=== PATIENT | female | born 1950 | race Caucasian/White ===

== ENCOUNTER 2025-06-23 20:47 | Inpatient (IN) | payer MEDICARE, SELFPAY ==
--- NOTE | ~2025-06-23 | CT_ITS ---
EXAMINATION: CT SOFT TISSUE NECK WITH CONTRAST CLINICAL INFORMATION: Dysphagia, rule out underlying mass or structural cause for dysphasia. COMPARISON: No prior. TECHNIQUE: Following the intravenous administration of 70 mL of Omnipaque 350 intravenous contrast, helical imaging was performed in the axial plane with generation of coronal and sagittal reformatted images. This CT examination was performed using dose optimization techniques as appropriate, variously including the following: *Automated exposure control *Adjustment of mA and/or kV according to patient size (this includes techniques or standardized protocols for targeted exams where dose is matched to indication/reason for exam; i.e. extremities or head) *Use of iterative reconstruction technique FINDINGS: Lymph Nodes: -Normal. No abnormal lymphadenopathy. Carotid Sheath Structures: -Trace calcification of the right carotid bulb. Otherwise normal. Salivary Glands: -Normal. Tongue Base/Floor of Mouth: -Normal Mucosal Space: - Normal. No abnormal mucosal space mass or enhancement. Visceral Space: -Thyroid gland: Normal. -Larynx is normal. -Imaged cervical esophagus is normal. -Subglottic trachea is normal. Retropharangeal Space: - Normal. Parapharyngeal Fat Planes: -Normal. Field Cane Scale Clerk Spaces: -Normal. Anterior Cervical Space: -Normal. Imaged Intracranial Contents: -No mass effect, edema, or abnormal enhancement. Cortical and dural venous sinuses are patent. The skull base is normal. Globes and Orbits: -Normal. Paranasal Sinuses/Mastoids/Tympanic Spaces: -Normally aerated bilaterally. Lung Apices and Superior Mediastinal Structures: -Imaged lung apices are clear and superior mediastinal structures are normal. Bony Structures: -No suspicious bone lesions. No fractures. -Moderate degenerative changes of the right TM joint. The left appears normal. -Relatively mild degenerative changes of the spine, most notable C5-6. CT/CT soft tissue neck w IV con IMPRESSION: 1. There is no mass, pathologic lymphadenopathy, abnormal fluid collection, or other abnormality within the neck. 2. Ancillary findings as discussed in the body of the report. Electronically signed by: Luis Mcbride MD 06/27/2025 09:00 AM [facility]
--- NOTE | ~2025-06-23 | FL_ITS ---
EXAMINATION: XR MODIFIED BARIUM SWALLOW CLINICAL INFORMATION: Dysphagia COMPARISON: None available. TECHNIQUE: Modified barium swallow performed by the speech pathologist. FINDINGS: Patient swallowed liquids and solid of varying consistency. No aspiration is seen. FLUOROSCOPY TIME: 4.08 minutes DOSE AREA PRODUCT: 121 uGy-m2 (microgray-meter squared) FL/FL Modified Barium Swallow IMPRESSION: No evidence of aspiration seen during the study. See speech pathology report for details. Electronically signed by: Leo Valenzuela MD 06/28/2025 04:05 PM [facility]
--- NOTE | ~2025-06-23 | CT_ITS ---
EXAMINATION: CT HEAD WITHOUT CONTRAST CLINICAL INFORMATION: dysphagia, rule out old/chronic infarcts COMPARISON: None available. TECHNIQUE: Contiguous axial imaging was performed from the skull base to vertex without intravenous administration of contrast. This CT examination was performed using dose optimization techniques as appropriate, variously including the following: *Automated exposure control *Adjustment of mA and/or kV according to patient size (this includes techniques or standardized protocols for targeted exams where dose is matched to indication/reason for exam; i.e. extremities or head) *Use of iterative reconstruction technique FINDINGS: There is no acute ischemic change. Subtle hypodensity in the posterior limb and a second in the anterior limb of the left internal capsule likely represents a remote lacunar infarcts. Periventricular white matter hypodensities are also present. There is no intracranial hemorrhage. There is no mass-effect or midline shift. There is mild to moderate generalized atrophy. Basal cisterns and ventricles are within normal limits for age/cerebral volume. Orbits are symmetrical and unremarkable. Paranasal sinuses and mastoid air cells are pneumatized. There are no bony abnormalities. CT/CT head/brain wo IV con IMPRESSION: Mild to moderate generalized atrophy and periventricular hypodensities likely related to small vessel angiopathy. There are also likely small lacunar infarct, involving the left anterior and posterior limbs of the internal capsule. Electronically signed by: Juan Rodriguez MD 06/27/2025 04:01 PM [facility]
--- NOTE | ~2025-06-23 | MR_ITS ---
EXAMINATION: MR BRAIN WITHOUT CONTRAST CLINICAL INFORMATION: Dysphagia. COMPARISON: Correlated to CT dated June 27, 2025. TECHNIQUE: MRI of the brain was obtained using routine sequences without contrast. FINDINGS: Paramagnetic field distortion secondary to the right maxillary sinus/right maxilla. No restricted diffusion. No acute intracranial hemorrhage, mass effect, midline shift, hydrocephalus or herniation. Peters-white matter differentiation is normal. There are a few scattered infratentorial and supratentorial compartment susceptibility signal foci. Bilateral multifocal punctate white matter hyperintense T2 FLAIR signal involving centrum semiovale and cruz radiata. Prominence of the extra-axial CSF spaces cerebral sulci and ventricles involving mostly the frontotemporal lobes. Flow-void signal within the main cerebral vessels is normal. Craniocervical junction demonstrates normal position of the cerebellar tonsils. Sellar/percent region is normal. Hyperintense T2 FLAIR signal in the right and to a lesser extent left mastoid. MR/MR head/brain wo con IMPRESSION: No acute brain abnormality. Few old microhemorrhages which could be hypertensive etiology. Small vessel occlusive disease. Probable inflammatory processes versus effusion, mastoid air cells. Electronically signed by: Flip Guzman MD 06/29/2025 09:28 AM EST
[2025-06-23 20:55] VITALS: BP 166/76; PULSE 76; RESP 18; TEMP 36.4; O2SAT 97; BMI 22.3
[2025-06-23 21:16] LABS: MANUAL DIFF FLAG NO
[2025-06-23 21:18] LABS: Hematocrit 39.8 % (37.0-47.0); Hemoglobin 13.2 g/dl (12.0-16.0); Imm Gran Abs Auto 0.03 X10*3/uL (0.00-0.03); Imm Gran Pct Auto 0.5 % (0.0-0.4); Lymphocytes Absolute Auto 1.8 X10*3/uL (1.2-4.9); Mean Corpuscular HGB Conc 33.2 g/dl (31.0-35.0); Mean Corpuscular Hemoglobin 31.7 pg (27.0-33.0); Mean Corpuscular Volume 95.4 fL (80.0-98.0); NRBC Abs Auto 0.000 X10*3/uL (0.0-0.012); NRBC Pct Auto 0.0 /100WBC (0.0-0.2); Platelet Count 390 X10*3/uL (160-400); Red Blood Count 4.17 X10*6/uL (4.20-5.50); White Blood Count 6.2 X10*3/uL (4.8-10.8)
[2025-06-23 21:31] LABS: Alanine Aminotransferase 18 U/L (0-31); Albumin Level 4.7 g/dL (3.5-5.0); Alkaline Phosphatase 85 U/L (39-117); Anion Gap 22 (12-20); Aspartate Amino Transferase 29 U/L (5-31); Blood Urea Nitrogen 34 mg/dL (9-16); Calcium 9.6 mg/dL (8.4-10.2); Carbon Dioxide 15 mmol/L (22-29); Chloride 109 mmol/L (96-108); Creatinine Clr Calc Pharmacy 29.1; Estimated Glomerular Filt Rate 35; Magnesium 2.1 mg/dL (1.6-2.6); Potassium 4.8 mmol/L (3.3-5.1); Sodium 141 mmol/L (135-145); Total Protein 7.8 g/dL (6.5-8.0)
[2025-06-23 21:52] LABS: Resp Syncy Virus RNA Qual PCR NEGATIVE (Negative); SARS COV2 PCR INHOUSE NEGATIVE (Negative)
[2025-06-24] VITALS (11 sets, daily range): BP systolic 109–142; BP diastolic 56–70; PULSE 67–88; RESP 14–20; TEMP 36.1–36.9; O2SAT 95–100; BMI 19.6
[2025-06-24] MEDS: Lactated Ringers 1,000 ML 150 ML IVCONT (02:06)
[2025-06-24] MEDS: diazePAM 10 MG/2 ML CARTRIDGE 5 MG IVPUSH (02:06)
--- NOTE | 2025-06-24 02:10 | ED.GENADULT ---
HPI - General Adult General Chief complaint: General Medical Stated complaint: not eating Time Seen by Provider: 06/24/25 00:06 Source: patient Limitations: no limitations History of Present Illness ED Provider: Hilaria Rice PA-C HPI narrative: 74-year-old female with a history of known dysphagia, hypertension and diabetes presents with worsening dysphagia. Patient states she developed difficulty swallowing 3 days ago. She is unable to tolerate both liquid and solid. She has not been able to take her prescribed medications. She was seen by primary care who gave her prescriptions for Reglan and baclofen, she has not been able to utilize them. Patient states she is having difficulty managing her secretions. Patient has been seen at [facility] for similar presentation, with the last episode being May of 2023. She had endoscopy at that time, without any additional intervention. Related Data Allergies Allergy/AdvReac Type Severity Reaction Status Date / Time No Known Allergies Allergy Verified 06/23/25 20:59 Review of Systems Review of Systems: Yes all other systems are reviewed and are negative Constitutional: Constitutional: Reports fatigue, Denies fever(s), Reports malaise and Reports poor appetite ENT: Reports dysphagia, Denies odynophagia and Denies sore throat Cardiovascular: Cardiovascular: Denies chest pain and Denies dyspnea Respiratory: Respiratory: Denies dyspnea Gastrointestinal: Gastrointestinal: Denies abdominal pain, Reports dysphagia, Denies nausea, Denies odynophagia and Denies vomiting Endocrine: Endocrine: Reports fatigue PMFSH Past Medical History Attestation statement: The following information was validated with the patient. Social History Social History Alcohol intake: current Alcohol type: wine Smoked in Last 30 Days: No Use of substances other than those prescribed or required for medical reasons: No Advance Directives: No Advance Directives Information Provided: Yes Physical Exam ED Vital Signs: Vital Signs - 24 hr 06/23/25 20:55 06/24/25 00:44 06/24/25 02:00 Temperature 97.6 F 97.9 F 97.9 F Pulse Rate 76 76 76 Respiratory Rate 18 16 16 Blood Pressure 166/76 H 136/60 136/60 Pulse Oximetry 97 97 97 Oxygen Delivery Method Room Air Room Air Room Air BMI result Body Mass Index 22.3 Const Other: Alert Orientation/consciousness: patient oriented x3 HENMT Other: No trismus or drooling Resp Effort & Inspection: normal respiratory effort Cardio Other: Normal peripheral perfusion Skin Other: Warm dry no rash Neuro General: patient oriented x3, gait normal, no focal motor deficits and CN's II-XI intact bilaterally Psych Other: Cooperative Medications Administered Generic Name Dose Route Start Last Admin Trade Name Freq PRN Reason Stop Dose Admin Lactated Ringer's 1,000 mls @ 150 mls/hr 06/24/25 02:00 06/24/25 02:06 Lr IVCONT 150 mls/hr .Q6H40M FRANCE Administration Discontinued Medications Generic Name Dose Route Start Last Admin Trade Name Freq PRN Reason Stop Dose Admin Diazepam 5 mg 06/24/25 02:00 06/24/25 02:06 Diazepam 10 Mg/2 Ml Cartridge IVPUSH 06/24/25 02:01 5 mg STAT STA Administration Metoclopramide HCl 10 mg 06/24/25 02:00 06/24/25 02:06 Metoclopramide Hcl 10 Mg/2 Ml Vial IVPUSH 06/24/25 02:01 10 mg ONCE ONE Administration Medical Decision Making Medical Decision Making MDM Narrative: 74-year-old female with a history of known dysphagia, hypertension and diabetes presents with worsening dysphagia. Patient states she developed difficulty swallowing 3 days ago. She is unable to tolerate both liquid and solid. She has not been able to take her prescribed medications. She was seen by primary care who gave her prescriptions for Reglan and baclofen, she has not been able to utilize them. Patient states she is having difficulty managing her secretions. Patient has been seen at [facility] for similar presentation, with the last episode being May of 2023. She had endoscopy at that time, without any additional intervention. Problem: Age, known dysphagia History: Per patient I have considered the following differential diagnoses: Globus, esophageal mass, stricture, Zenker diverticulum, esophageal dysmotility Plan: Screening labs obtained, the patient is mildly dehydrated, no overt electrolyte abnormalities. We will admit for GI consult, she needs further workup. We are in the process of obtaining records from [facility]. I have independently reviewed the following tests: Labs: No leukocytosis, not anemic, creatinine 1.44, no additional electrolyte abnormalities, viral panel negative Differential Diagnosis Differential Diagnoses: The differential diagnosis associated with the presentation includes See MDM Admission/Observation Consideration of admission/observation: Escalation of care including admission/observation considered Admit Consult Healthcare Provider Management of the patient was discussed with: Hospitalist and Pie Chef We will require GI consult Lab Data MDM Lab Attestation statement: I reviewed the patient's lab results. 06/23/25 21:11 06/23/25 21:11 Labs: Lab Results 06/23/25 Range/Units 21:11 WBC 6.2 (4.8-10.8) X10*3/uL RBC 4.17 L (4.20-5.50) X10*6/uL Hgb 13.2 (12.0-16.0) g/dl Hct 39.8 (37.0-47.0) % MCV 95.4 (80.0-98.0) fL MCH 31.7 (27.0-33.0) pg MCHC 33.2 (31.0-35.0) g/dl RDW 13.0 (11.0-16.0) % Plt Count 390 (160-400) X10*3/uL MPV 9.5 (9.4-12.3) fL Immature Gran % (Auto) 0.5 H (0.0-0.4) % Neut % (Auto) 60.6 (45-73) % Lymph % (Auto) 29.4 (20-40) % [place] % (Auto) 8.4 (2-11) % Eos % (Auto) 0.8 (0-4) % Baso % (Auto) 0.3 (0-2) % Lymph # (Auto) 1.8 (1.2-4.9) X10*3/uL [place] # (Auto) 0.5 (0.1-1.2) X10*3/uL Eos # (Auto) 0.1 (0.0-0.4) X10*3/uL Baso # (Auto) 0.0 (0.0-0.2) X10*3/uL Abs Immat Gran (auto) 0.03 (0.00-0.03) X10*3/uL Absolute Neuts (auto) 3.7 (2.0-8.3) x10*3/uL Absolute Nucleated RBC 0.000 (0.0-0.012) X10*3/uL Nucleated RBC % (auto) 0.0 (0.0-0.2) /100WBC Sodium 141 (135-145) mmol/L Potassium 4.8 (3.3-5.1) mmol/L Chloride 109 H (96-108) mmol/L Carbon Dioxide 15 L (22-29) mmol/L Anion Gap 22 H (12-20) BUN 34 H (9-16) mg/dL Creatinine 1.44 H (0.5-1.4) mg/dL Estim Creat Clear Calc 29.1 Estimated GFR 35 Random Glucose 70 (60-115) mg/dL Calcium 9.6 (8.4-10.2) mg/dL Magnesium 2.1 (1.6-2.6) mg/dL Total Bilirubin 0.5 (0.0-1.0) mg/dL AST 29 (5-31) U/L ALT 18 (0-31) U/L Alkaline Phosphatase 85 (39-117) U/L Total Protein 7.8 (6.5-8.0) g/dL Albumin 4.7 (3.5-5.0) g/dL Influenza Type A (PCR) NEGATIVE (Negative) Influenza Type B (PCR) NEGATIVE (Negative) RSV RNA Qual (PCR) NEGATIVE (Negative) SARS-CoV-2 RNA (RT-PCR) NEGATIVE (Negative) Discharge Plan Discharge Clinical Impression: Dysphagia, Dehydration Patient Disposition: Admitted As Inpatient
--- NOTE | 2025-06-24 02:58 | P.HPHOSP_ITS ---
History of Present Illness Date of Service: 06/24/25 Chief Complaint: not eating 74-year-old female with a history of dysphagia diagnosed in May 2023 after presenting to [facility] with similar symptoms, she presented today with acute worsening of swallowing difficulties. On Friday, she experienced a choking episode while drinking water, prompting an urgent appointment with her primary care physician later that afternoon. By the following day (Friday), she became unable to swallow both liquids and solids, including medications, and has not eaten since Friday afternoon. She reports using a chin tuck maneuver to swallow her saliva. Her dysphagia was previously thought to be esophageal in origin, though she is unsure. An endoscopy was performed in May 2023 ([facility], GI Dr. Costello). Metoclopramide (Reglan) and baclofen were prescribed by her primary care physician on Friday for symptom management, but she has not been able to take them. Before Friday, the patient reported tolerating a regular diet without any issues. She denies pain with swallowing except for transient discomfort after choking episodes. She also denies coughing with eating, metallic taste, burning in the esophagus, nausea, vomiting, dry mouth, or breathing problems. ED course: Diazepam 5 Mg IV and Reglan 10 mg IV x 1 dose Vital signs: stable, afebrile Diagnostic studies: Serum creatinine 1.44, BUN 34, anion gap 22, bicarb 15, potassium 4.8, sodium 141, calcium 9.6, magnesium 2.1, glucose 70. CBC within normal limits. Respiratory panel negative Discharge summary from [facility] 05/2023 reviewed: EGD: Normal esophageal pathology. Mild gastritis, duodenal ulcer COMORBID CONDITIONS: Dysphagia, Hypertension, type 2 diabetes mellitus, depression, history of DVT in adulthood MEDICATIONS: - Jardiance 10 mg daily, Telmisartan 80 mg daily (Prescribed on 06/20/25: metoclopramide (Reglan) and baclofen) SOCIAL HISTORY: - No cigarette use - Occasional alcohol use (a glass of wine with dinner) [facility] Social History Alcohol intake: current Alcohol type: wine Smoked in Last 30 Days: No Use of substances other than those prescribed or required for medical reasons: No Advance Directives: No Advance Directives Information Provided: Yes Meds Allergies Allergy/AdvReac Type Severity Reaction Status Date / Time No Known Allergies Allergy Verified 06/23/25 20:59 Active Medications: Current Medications Lactated Ringer's (Lr) 1,000 mls @ 150 mls/hr IVCONT .Q6H40M FRANCE Last Admin: 06/24/25 02:06 Dose: 150 mls/hr Physical Exam 2 Vital Signs and Narrative: Vital Signs: Last Vital Signs Temp 97.9 F 06/24/25 02:00 Pulse 76 06/24/25 02:00 Resp 16 06/24/25 02:00 BP 136/60 06/24/25 02:00 Pulse Ox 97 06/24/25 02:00 O2 Del Method Room Air 06/24/25 02:00 BMI result Body Mass Index 22.3 General: Alert, oriented, in no acute distress and cooperative. Safely managing oral secretions ENT: Mucous membranes moist Neck: Supple Heart: RRR Lungs: Clear to auscultation bilaterally. No wheezes, rales, or rhonchi. Normal respiratory effort. No stridors Abdomen: Soft, non tenderness, nondistended, normoactive bowel sounds. Extremities: No calf tenderness bilaterally, no swelling Neurologic: Alert & oriented x4. Moving all extremities spontaneously. Normal speech. Results Labs 06/23/25 21:11 06/23/25 21:11 Labs: Laboratory Results - last 24 hr 06/23/25 21:11 MCV 95.4 MCH 31.7 MCHC 33.2 RDW 13.0 Plt Count 390 MPV 9.5 Immature Gran % (Auto) 0.5 H Neut % (Auto) 60.6 Lymph % (Auto) 29.4 [place] % (Auto) 8.4 Eos % (Auto) 0.8 Baso % (Auto) 0.3 Lymph # (Auto) 1.8 [place] # (Auto) 0.5 Eos # (Auto) 0.1 Baso # (Auto) 0.0 Abs Immat Gran (auto) 0.03 Absolute Neuts (auto) 3.7 Absolute Nucleated RBC 0.000 Nucleated RBC % (auto) 0.0 Anion Gap 22 H Estim Creat Clear Calc 29.1 Estimated GFR 35 Random Glucose 70 Calcium 9.6 Magnesium 2.1 Total Bilirubin 0.5 AST 29 ALT 18 Alkaline Phosphatase 85 Total Protein 7.8 Albumin 4.7 Influenza Type A (PCR) NEGATIVE Influenza Type B (PCR) NEGATIVE RSV RNA Qual (PCR) NEGATIVE SARS-CoV-2 RNA (RT-PCR) NEGATIVE Assessment and Plan (1) Dysphagia: Qualifiers: Dysphagia type: unspecified Qualified Code(s): R13.10 - Dysphagia, unspecified Status: Acute (2) Acute prerenal azotemia: Status: Acute (3) HTN (hypertension): Status: Chronic (4) Type 2 diabetes mellitus: Status: Chronic Plan 74 year olad with a history of dysphagia diagnosed in May 2023, diabetes mellitus, and hypertension, presenting with acute worsening of swallowing over the past week, now unable to tolerate oral intake or medications, using compensatory swallowing maneuvers. Dysphagia NPO IVF Protonix 40 mg IV daily Aspiration precaution HOME CARE ASSISTANT consult Gastroenterology consult Monitoring blood glucose levels q.6 hours whilst NPO Continuous pulse oximetry Acute prerenal azotemia BUN creatinine ratio greater than 20 likely secondary to decreased oral intake due to dysphagia IVF Close monitoring BMP (at 6 a.m.) Renal dose medications when appropriate and avoiding nephrotoxic agents Type 2 diabetes mellitus: Asymptomatic low blood glucose secondary to decreased oral intake associated with dysphagia Jardiance held on admission-unable to take oral medications due to dysphagia Monitor blood glucose Hypertension: BP controlled, unable to take oral medications due to dysphagia. Holding oral antihypertensive agents IV antihypertensive therapy as needed if BPs greater than or equal to 180/90 What Matters Most Healthcare Proxy: The patient?s designated daughter, Aronvere as the primary contact for updates during hospitalization and will serve as the surrogate decision-maker should the patient lose capacity. Advance Directives: Living Will is in place. Life-Sustaining Treatment Preferences: The patient has clearly stated a preference against resuscitation, intubation, or other extraordinary life- sustaining interventions. VTE: Heparin subcutaneous Total time managing care of this patient today: 75 minutes. Quality Stroke Does the patient have a stroke diagnosis?: No VTE Prior VTE?: Yes VTE Risk Level:: Medical - moderate - high VTE Device Contraindication: Treatment Not Indicated VTE Drug Contraindication: N/A - Med Ordered
--- NOTE | 2025-06-24 03:33 | MHC.EDTECH ---
belongings list done,crystal medeiros aware of patients meds and will take the process from there
[2025-06-24 04:16] LABS: Anion Gap 22 (12-20); Blood Urea Nitrogen 33 mg/dL (9-16); Calcium 9.6 mg/dL (8.4-10.2); Carbon Dioxide 13 mmol/L (22-29); Chloride 110 mmol/L (96-108); Creatinine Clr Calc Pharmacy 32.2; Estimated Glomerular Filt Rate 40; Potassium 4.2 mmol/L (3.3-5.1); Sodium 141 mmol/L (135-145)
[2025-06-24] MEDS: Dextrose 5 % and Lactated Ring 1,000 ML 125 ML IVCONT ×3 (06:18→23:14)
--- NOTE | 2025-06-24 06:28 | PC.NURSE ---
took patient medication bottles and supervisor special services pack to pharmacy. paperwork was placed on chart and copy given to patient
[2025-06-24 06:57] LABS: Venous Blood Gas Refer to POC result
[2025-06-24 06:58] LABS: VBG HCO3 12 mmol/L (22-26); VBG O2 % Saturation 99.0 %
--- NOTE | 2025-06-24 07:11 | PM.GICN ---
History of Present Illness Data of Consult Service Date: 06/24/25 Requesting physician: Qian Blake Primary Care Provider: Jef Noland NP HPI Reason for consult: Dysphagia 74 YF with hypertension, type 2 diabetes mellitus, depression, history of DVT seen at [facility] on 06/23/25 with acute worsening of swallowing difficulties. On Friday, she experienced a choking episode while drinking water, prompting an urgent appointment with her primary care physician later that afternoon. By the following day (Friday), she became unable to swallow both liquids and solids, including medications, and has not eaten since Friday afternoon. She reports using a chin tuck maneuver to swallow her saliva. Her dysphagia was previously thought to be esophageal in origin, though she is unsure. Metoclopramide (Reglan) and baclofen were prescribed by her primary care physician on Friday for symptom management, but she has not been able to take them. Before Friday, the patient reported tolerating a regular diet without any issues. She denies pain with swallowing except for transient discomfort after choking episodes. She also denies coughing with eating, metallic taste, burning in the esophagus, nausea, vomiting, dry mouth, or breathing problems. 05/2023 Pt was diagnosed with dysphagia after she was seen at [facility] with similar symptoms. An endoscopy was performed in May 2023 ([facility], GI Dr. Costello). ED course: Diazepam 5 Mg IV and Reglan 10 mg IV x 1 dose Labs showed creatinine 1.44, BUN 34, anion gap 22, bicarb 15, potassium 4.8, sodium 141, calcium 9.6, magnesium 2.1, glucose 70. CBC within normal limits. Respiratory panel negative Discharge summary from [facility] 05/2023 reviewed: EGD: Normal esophageal pathology. Mild gastritis, duodenal ulcer MEDICATIONS: - Jardiance 10 mg daily, Telmisartan 80 mg daily (Prescribed on 06/20/25: metoclopramide (Reglan) and baclofen) SOCIAL HISTORY: - No cigarette use - Occasional alcohol use (a glass of wine with dinner) Review of Systems Review of Systems: Yes all other systems are reviewed and are negative Constitutional: Constitutional: Reports fatigue, Denies fever(s), Reports malaise and Reports poor appetite ENT: Reports dysphagia, Denies odynophagia and Denies sore throat Cardiovascular: Cardiovascular: Denies chest pain and Denies dyspnea Respiratory: Respiratory: Denies dyspnea Gastrointestinal: Gastrointestinal: Denies abdominal pain, Reports dysphagia, Denies nausea, Denies odynophagia and Denies vomiting Endocrine: Endocrine: Reports fatigue PMFSH Past Medical History Medical History Acute prerenal azotemia Dysphagia DVT (deep venous thrombosis) Depression HTN (hypertension) Diabetes Surgical History Surgical History Hx of hysterectomy History of esophagogastroduodenoscopy (EGD) Social History Social History Household Members: Children Housing: House Are you a primary career technical education instructor to a significant other at home: No Do you presently have visiting nurse or other home services: No Alcohol intake: current Alcohol intake frequency: does not drink Alcohol type: wine Comment: medicated Patient Tobacco Use Status: Never used Tobacco Advance Directives Date on File: 07/01/25 service: No Meds Allergies Allergy/AdvReac Type Severity Reaction Status Date / Time No Known Allergies Allergy Verified 07/04/25 08:37 Active Medications: Current Medications Heparin Sodium (Porcine) (Heparin Sodium,Porcine 5,000 Unit/Ml Vial) 5,000 unit SUBCUT Q8H [facility] Lactated Ringer's (Lr) 1,000 mls @ 150 mls/hr IVCONT .Q6H40M [facility] Last Infusion: 06/24/25 04:26 Dose: Infused Dextrose/Lactated Ringer's (D5lr) 1,000 mls @ 125 mls/hr IVCONT .Q8H [facility] Last Admin: 06/24/25 06:18 Dose: 125 mls/hr Ondansetron HCl (Ondansetron Hcl 4 Mg/2 Ml Vial) 4 mg IVPUSH Q6H PRN PRN Reason: Nausea and Vomiting Pantoprazole Sodium (Pantoprazole Sodium 40 Mg/10 Ml Vial) 40 mg IVPUSH DAILY@0630 [facility] Last Admin: 06/24/25 05:41 Dose: 40 mg Sodium Chloride (0.9 % Sodium Chloride Flush 3 Ml Syringe) 3 ml IVFLUSH QSHIFT [facility] Home Medications ?Medication ?Instructions ?Recorded ?Confirmed ?Last Taken ?Type baclofen 5 mg tablet 5 mg PO TID 06/24/25 07/04/25 06/20/25 History cholecalciferol (vitamin D3) 25 25 mcg PO DAILY 06/24/25 07/04/25 06/20/25 History mcg (1,000 unit) tablet (Vitamin D3) empagliflozin 10 mg tablet 10 mg PO DAILY 06/24/25 07/04/25 06/20/25 History (Jardiance) hydrochlorothiazide 12.5 mg tablet 12.5 mg PO DAILY 06/24/25 07/04/25 06/20/25 History metoclopramide HCl 5 mg tablet 5 mg PO TID 06/24/25 07/04/25 06/20/25 History telmisartan 80 mg tablet 80 mg PO DAILY 06/24/25 07/04/25 06/20/25 History Physical Exam Vital Signs: Vital Signs: Last Vital Signs Temp 97.2 F 06/24/25 06:00 Pulse 67 06/24/25 06:00 Resp 14 06/24/25 06:00 BP 134/57 L 06/24/25 06:00 Pulse Ox 96 06/24/25 06:00 O2 Del Method Room Air 06/24/25 06:00 BMI result Body Mass Index 22.3 Const: General: no acute distress and other (Frail-appearing) Nutritional Appearance: underweight Orientation/consciousness: patient oriented x3 Limitations: no limitations HEENT: Head: Yes normal to inspection Ears: hearing grossly normal bilaterally Mouth: Normal oral and palatal mucosa present Eyes: Sclerae: sclerae normal Pupils: Equal, round and reactive pupils present Neck: Neck: Yes normal visual inspection Chest: Chest palpation & inspection: normal inspection of the chest Resp: Effort & Inspection: normal respiratory effort Auscultation: clear to auscultation bilaterally Cardio: Palpation: normal PMI Rate: regular rate Rhythm: regular rhythm Heart sounds: S1 normal heart sound present, S2 normal heart sound present and no murmurs GI: Palpation (GI): Soft to palpation, nontender and No hepatosplenomegaly present Auscultation: normal bowel sounds Rectal Exam - Female: deferred Skin: General skin exam: no rashes or lesions noted Neuro: General: patient oriented x3, gait normal and moves all extremities Cranial nerves: Yes Equal, round and reactive pupils present Psych: Appearance: grossly normal Mental Status: mental status grossly normal Results Labs 06/29/25 05:30 06/30/25 05:58 Labs: Short CBC 06/23/25 Range/Units 21:11 WBC 6.2 (4.8-10.8) X10*3/uL Hgb 13.2 (12.0-16.0) g/dl Hct 39.8 (37.0-47.0) % Plt Count 390 (160-400) X10*3/uL BMP 06/23/25 06/24/25 21:11 03:48 Sodium 141 141 Potassium 4.8 4.2 Chloride 109 H 110 H Carbon Dioxide 15 L 13 L BUN 34 H 33 H Creatinine 1.44 H 1.30 Calcium 9.6 9.6 Liver Function 06/23/25 Range/Units 21:11 Total Bilirubin 0.5 (0.0-1.0) mg/dL AST 29 (5-31) U/L ALT 18 (0-31) U/L Alkaline Phosphatase 85 (39-117) U/L Albumin 4.7 (3.5-5.0) g/dL Assessment and Plan (1) Dysphagia: Qualifiers: Dysphagia type: unspecified Qualified Code(s): R13.10 - Dysphagia, unspecified Status: Acute Plan 74 YF with hypertension, type 2 diabetes mellitus, depression, history of DVT admitted to [facility] on 06/23/25 with worsening dysphagia and inability to take PO for the pasy 5 days. RECOMMENDATIONS: Proceed with upper endoscopy for further evaluation. EGD procedure and potential complications including bleeding, perforation, reaction to anesthetic and aspiration were reviewed with the patient. Procedures Date of Service Date of Service: 07/07/25
[2025-06-24 07:45] LABS: Glucose, Whole Blood 88 mg/dL (60-115)
--- NOTE | 2025-06-24 08:09 | HO.ANESPROP2 ---
HPI - Anesthesia Eval Consult details Narrative: 74 yr old female for EGD H/O DVT: not on anticoagulation Anesthesia Pre-Procedure Meds Is the patient on any of the following meds?: SGLT2 Inhib PMFSH Active Problems Active Problems: All Active Problems Type 2 diabetes mellitus (Chronic) HTN (hypertension) (Chronic) Acute prerenal azotemia (Acute) Dehydration (Acute) Dysphagia (Acute) Past Medical History Medical History (Updated 06/24/25 @ 08:27 by Liyah Antunez RN) Acute prerenal azotemia Dysphagia DVT (deep venous thrombosis) Depression HTN (hypertension) Diabetes Social History Social History Alcohol intake: current Alcohol type: wine Smoked in Last 30 Days: No Use of substances other than those prescribed or required for medical reasons: No Advance Directives: No Advance Directives Information Provided: Yes Meds Allergies Allergy/AdvReac Type Severity Reaction Status Date / Time No Known Allergies Allergy Verified 06/23/25 20:59 Active Medications: Current Medications Heparin Sodium (Porcine) (Heparin Sodium,Porcine 5,000 Unit/Ml Vial) 5,000 unit SUBCUT Q8H [facility] Dextrose/Lactated Ringer's (D5lr) 1,000 mls @ 125 mls/hr IVCONT .Q8H [facility] Last Admin: 06/24/25 06:18 Dose: 125 mls/hr Ondansetron HCl (Ondansetron Hcl 4 Mg/2 Ml Vial) 4 mg IVPUSH Q6H PRN PRN Reason: Nausea and Vomiting Pantoprazole Sodium (Pantoprazole Sodium 40 Mg/10 Ml Vial) 40 mg IVPUSH DAILY@0630 [facility] Last Admin: 06/24/25 05:41 Dose: 40 mg Sodium Chloride (0.9 % Sodium Chloride Flush 3 Ml Syringe) 3 ml IVFLUSH QSHIFT [facility] Last Admin: 06/24/25 07:32 Dose: Not Given Home Medications ?Medication ?Instructions ?Recorded ?Confirmed ?Last Taken ?Type baclofen 5 mg tablet 5 mg PO TID 06/24/25 06/24/25 06/20/25 History cholecalciferol (vitamin D3) 25 25 mcg PO DAILY 06/24/25 06/24/25 06/20/25 History mcg (1,000 unit) tablet (Vitamin D3) empagliflozin 10 mg tablet 10 mg PO DAILY 06/24/25 06/24/25 06/20/25 History (Jardiance) hydrochlorothiazide 12.5 mg tablet 12.5 mg PO DAILY 06/24/25 06/24/25 06/20/25 History metoclopramide HCl 5 mg tablet 5 mg PO TID 06/24/25 06/24/25 06/20/25 History telmisartan 80 mg tablet 80 mg PO DAILY 06/24/25 06/24/25 06/20/25 History Exam Height,Weight and Vital Signs: Height 5 ft 4 in Weight 58.967 kg Last Vital Signs Temp 97.2 F 06/24/25 06:00 Pulse 67 06/24/25 06:00 Resp 14 06/24/25 06:00 BP 134/57 L 06/24/25 06:00 Pulse Ox 96 06/24/25 06:00 O2 Del Method Room Air 06/24/25 06:00 Pertinent Lab Results Pertinent Lab Results: Laboratory Tests 06/23/25 06/24/25 06/24/25 21:11 03:48 06:29 WBC 6.2 RBC 4.17 L Hgb 13.2 Hct 39.8 MCV 95.4 MCH 31.7 MCHC 33.2 RDW 13.0 Plt Count 390 MPV 9.5 Immature Gran % (Auto) 0.5 H Neut % (Auto) 60.6 Lymph % (Auto) 29.4 [place] % (Auto) 8.4 Eos % (Auto) 0.8 Baso % (Auto) 0.3 Lymph # (Auto) 1.8 [place] # (Auto) 0.5 Eos # (Auto) 0.1 Baso # (Auto) 0.0 Abs Immat Gran (auto) 0.03 Absolute Neuts (auto) 3.7 Absolute Nucleated RBC 0.000 Nucleated RBC % (auto) 0.0 VBG pH 7.30 L VBG pCO2 24 VBG pO2 158 VBG HCO3 12 L VBG O2 Saturation 99.0 VBG Base Excess -11.9 Sodium 141 141 Potassium 4.8 4.2 Chloride 109 H 110 H Carbon Dioxide 15 L 13 L Anion Gap 22 H 22 H BUN 34 H 33 H Creatinine 1.44 H 1.30 Estim Creat Clear Calc 29.1 32.2 Estimated GFR 35 40 POC Glucose Random Glucose 70 64 Lactic Acid Calcium 9.6 9.6 Magnesium 2.1 Total Bilirubin 0.5 AST 29 ALT 18 Alkaline Phosphatase 85 Total Protein 7.8 Albumin 4.7 Influenza Type A (PCR) NEGATIVE Influenza Type B (PCR) NEGATIVE RSV RNA Qual (PCR) NEGATIVE SARS-CoV-2 RNA (RT-PCR) NEGATIVE 06/24/25 06/24/25 06:39 07:29 WBC RBC Hgb Hct MCV MCH MCHC RDW Plt Count MPV Immature Gran % (Auto) Neut % (Auto) Lymph % (Auto) [place] % (Auto) Eos % (Auto) Baso % (Auto) Lymph # (Auto) [place] # (Auto) Eos # (Auto) Baso # (Auto) Abs Immat Gran (auto) Absolute Neuts (auto) Absolute Nucleated RBC Nucleated RBC % (auto) VBG pH VBG pCO2 VBG pO2 VBG HCO3 VBG O2 Saturation VBG Base Excess Sodium Potassium Chloride Carbon Dioxide Anion Gap BUN Creatinine Estim Creat Clear Calc Estimated GFR POC Glucose 88 Random Glucose Lactic Acid 0.6 Calcium Magnesium Total Bilirubin AST ALT Alkaline Phosphatase Total Protein Albumin Influenza Type A (PCR) Influenza Type B (PCR) RSV RNA Qual (PCR) SARS-CoV-2 RNA (RT-PCR)
--- NOTE | 2025-06-24 08:12 | PHA.MEDREC ---
Pharmacy Consult ? Medication Reconciliation Pharmacy has completed the medication reconciliation. Spoke with patient at bedside, she was able to confirm her home meds but states she hasn't been able to swallow since Friday
--- NOTE | 2025-06-24 09:55 | PC.NURSE ---
Dr. Araujo updated that patient was given dose of Heparin this a.m. Stated that procedure needs to be completed today, due to inability of patient to eat. Okay to proceed.
--- NOTE | 2025-06-24 10:13 | PM.EVENT ---
Event Note Date of Service: 06/24/25 Event Note: Pt seen/examined, labs meds, imaging reviewed, A/P per h and p from today, awaiting gi eval, will need speech eval, holding meds at this time. Noted hyperchloremic metabolic acidosis, and likely starvation ketosis. Avoid normal NS, continue monitoring electrolytes, continue LR Time Spent With Patient Time: Total time managing care of this patient today ____ minutes.
[2025-06-24 10:54] LABS: Appearance Urine Clear; Glucose Urine UA >=1000 mg/dL (Negative); PH 5.5 (5.0-9.0); Specific Gravity - Urine 1.020 (1.005-1.025); UMIC TRIGGER UA YES
[2025-06-24 11:22] LABS: Glucose, Whole Blood 109 mg/dL (60-115)
--- NOTE | 2025-06-24 11:31 | MHC.CM.PN ---
pt lives with dgter is independent will not need services when dcd dc plan home n/s
[2025-06-24 13:44] LABS: Anion Gap 17 (12-20); Blood Urea Nitrogen 23 mg/dL (9-16); Calcium 9.0 mg/dL (8.4-10.2); Carbon Dioxide 16 mmol/L (22-29); Chloride 112 mmol/L (96-108); Creatinine Clr Calc Pharmacy 39.8; Estimated Glomerular Filt Rate 54; Potassium 4.3 mmol/L (3.3-5.1); Sodium 141 mmol/L (135-145)
--- NOTE | 2025-06-24 14:54 | MHC.SHP ---
Pre-Procedural Eval Section A - 24 Hr Update-Section A only Date of Service: 06/24/25 The patient is an INPATIENT: Yes Changes since office visit: Yes New Medical Problems, Yes Changes in Medication and Yes Patient answered all questions; No Cold of Flu in the past 2 weeks The patient has been examined within 24 hours of the surgical procedure. The History & Physical has been completed within 30 days and I have reviewed it.: Yes Section B - Complete if H&P > 30 days Chief Complaint: dysphagia Allergies: Allergies Allergy/AdvReac Type Severity Reaction Status Date / Time No Known Allergies Allergy Verified 06/24/25 14:16 Exam Surgical H&P Exam: Normal: Heart, Normal: Lungs, Normal: Extremities and Normal: Abdomen Plan Diagnosis/Plan: Change (Proceed with upper endoscopy for evaluation of dysphagia) I have reviewed the history and physical and performed a pertinent physical examination on my patient. No changes have occurred unless specified. Time Spent With Patient Time: Total time managing care of this patient today ____ minutes.
--- NOTE | 2025-06-24 15:15 | W.PM.OPN ---
Operative Note Operative Note Date of Service: 06/24/25 Narrative: FLEXIBLE TRANSORAL UPPER GASTROINTESTINAL ENDOSCOPY WITH BIOPSIES AND ESOPHAGEAL BALLOON DILATION Pre-op diagnosis: Dysphagia Post-op diagnosis: Dysphagia likely due to esophageal motility disorder Endoscopist:? Semaj Araujo MD Anesthesia:?MAC UPPER ENDOSCOPY Consent: Indications for the procedure and potential complications of bleeding, perforation, reaction to medications and missed diagnosis were discussed with the patient and informed consent was obtained. Instrument: Olympus GIF H 190 mid size upper endoscope Monitoring: Vital signs and clinical assessment, continuous EKG monitoring, Pulse oximetry, Carbon Dioxide monitoring and blood pressure monitoring were done throughout the procedure. Procedure: The patient was placed in the left lateral decubitis position and pre-procedure medications were administered and a bite block was placed. The endoscope was inserted into the mouth and advanced under direct vision to the third part of duodenum. A careful inspection was made as the upper endoscope was withdrawn including a retroflexed examination of the proximal stomach; Findings and interventions are described below. Findings: Larynx: Normal Esophagus: GE junction at 35 cms. Mildly tortuous esophagus without stricture or ring. No food bolus seen in the esophagus or stomach Empiric balloon dilation of the proximal esophagus was performed with an 18 mm (54 F) CRE balloon x 60 sec Empiric balloon dilation of the distal esophagus was performed with a 20 mm (60 F) CRE balloon x 60 seconds Stomach: Normal gastric mucosa - biopsies were obtained from the antrum to check for Helicobacter pylori. Grade 2 flap valve on retroflexed examination of the cardia. Duodenum: Normal bulb and descending duodenum Intervention: Biopsies as noted above Impression and Post Procedure Diagnosis: Endoscopy Findings: ESOPHAGUS: Mildly tortuous esophagus without stricture or ring. No food bolus seen in the esophagus or stomach Empiric balloon dilation of the proximal esophagus was performed with an 18 mm (54 F) CRE balloon x 60 sec Empiric balloon dilation of the distal esophagus was performed with a 20 mm (60 F) CRE balloon x 60 seconds STOMACH: Normal DUODENUM: Normal Dysphagia likely due to esophageal motility or neurological disorder - no other pathology was detected. Plan: 1. Proceed with evaluation by Speech Pathology - diet as recommended by Speech Pathologist If patient continues to have dysphagia, consider further evaluation with a modified barium swallow Above findings were reviewed with the patient and relevant handouts were given and the discharge area.
[2025-06-24 16:20] LABS: Glucose, Whole Blood 91 mg/dL (60-115)
--- NOTE | 2025-06-24 17:33 | MHC.SL.SWA ---
Speech Pathologist Impression: Risk of Aspiration, Pharyngeal Dysphagia Dysphasia Diet Status: Start on NDD1/THIN Liquid Consistency and Strategies for Safe Swallow: Liquid Intake Recommendation: Thin Solid Food Consistency: Dietary Recommendations: Pureed (NDD1) Additional Modifications to Solid Foods: Oral phase unremarkable. Patient presents with reported pharyngeal phase dysphagia, with effortful behaviors noted with intake of trace PO, such as grimacing, bearing down, and at times jumping in bed when swallowing. Laryngeal elevation evident on palpation and visibly observed. No oral residue post-swallow and no overt s/s of aspiration with intake of pudding and water. Patient reporting globus sensation, with relief after multiple dry swallows. Recommend start on PUREED (NDD1) diet and THIN liquids, pills CRUSHED in PUREE. Patient is able to self feed ([facility] periodic check in's to monitor progression through meals). Patient would benefit from modified barium swallow (MBSS) to further evaluate unclear etiology of dysphagia. Oral Medication Intake: Crushed with Puree Please contact the pharmacy regarding appropriate crushable or liquid drug formulations that are available whenever modified delivery is recommended. 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 Patient would benefit from instrumental exam/MBSS. Frequency/Duration: M-F daily while inpatient Date Range for Service Req: Timeline to reassess: Double Cut Off Saw Operator Clinican/Clinical Fellow: No Supervisory Statement: I have reviewed and agree with the student/clinical fellow's documentation: N/A Speech Language Pathologist: Alexandria Arenas M.A., CCC-OIL WELL SERVICES FIELD SUPERVISOR
[2025-06-24 18:32] LABS: Glucose, Whole Blood 162 mg/dL (60-115)
[2025-06-24 20:24] LABS: Glucose, Whole Blood 217 mg/dL (60-115)
[2025-06-24] MEDS: 0.9 % Sodium Chloride Flush 3 ML SYRINGE IVFLUSH (20:25)
[2025-06-25 03:40] VITALS: BP 141/62; PULSE 62; RESP 15; TEMP 36.1; O2SAT 96
[2025-06-25] MEDS: Dextrose 5 % and Lactated Ring 1,000 ML 125 ML IVCONT (06:15)
[2025-06-25 07:31] LABS: Glucose, Whole Blood 141 mg/dL (60-115)
[2025-06-25 07:35] VITALS: BP 121/71; PULSE 66; RESP 16; TEMP 36.2; O2SAT 98
--- NOTE | 2025-06-25 10:00 | PC.NURSE ---
Patient reports having difficulty swallowing thin liquids and salivia. Provider Van came and assessed patinet, diet order changed to honey thick liquids per the order of provider Van.
[2025-06-25 11:45] LABS: Glucose, Whole Blood 171 mg/dL (60-115)
[2025-06-25 11:50] VITALS: BP 141/68; PULSE 73; RESP 16; TEMP 36.3; O2SAT 99
[2025-06-25] MEDS: iohexoL 350 MG/ML 100 ML INFUS..BTL IV (14:54)
[2025-06-25 15:17] VITALS: BP 166/76; PULSE 69; RESP 18; TEMP 36.2; O2SAT 99
[2025-06-25] MEDS: Dextrose 5 % and Lactated Ring 1,000 ML 75 ML IVCONT (16:01)
[2025-06-25] MEDS: 0.9 % Sodium Chloride Flush 3 ML SYRINGE IVFLUSH (16:01)
[2025-06-25 16:06] LABS: Glucose, Whole Blood 91 mg/dL (60-115)
--- NOTE | 2025-06-25 17:10 | HO.PM.IMPN ---
Subjective Subjective Date of Service: 06/25/25 Interval History: Seen in follow-up for dysphagia, dehydration Interval history: Following small amounts of pureed solids but requires R chin tuck, unable to swallow with L chin tuck. However having significant difficulty with liquids, continues choking on juice and coffee. She has also choking on saliva. Denies any odynophagia or globus sensation. S/p esophageal dilation 06/24 Review of Systems Review of Systems: Yes all other systems are reviewed and are negative Physical Exam Exam: Exam: EXAM: Constitutional - Awake and Alert, No apparent distress Eyes - PERRL Neck: Supple, full rom. enlargement of the L tonsillar node, nontender Cardiovascular - S1S2, RRR, No edema Respiratory - Normal lung expansion, Normal respiratory effort, No respiratory distress, CTA bilaterally Extremities - no calf tenderness bilaterally, no swelling Skin - Warm/Dry Neurological - Alert & oriented x3 Psychological - Appropriate affect Vital Signs: Vital Signs: Last Vital Signs Temp 97.2 F 06/25/25 15:17 Pulse 69 06/25/25 15:17 Resp 18 06/25/25 15:17 BP 166/76 H 06/25/25 15:17 Pulse Ox 99 06/25/25 15:17 O2 Del Method Room Air 06/25/25 11:50 BMI result Body Mass Index 19.6 Objective Data Active Medications Baclofen (Baclofen 10 Mg Tablet) 10 mg PO TID ON LICENSE OF [facility] Last Admin: 06/25/25 16:04 Dose: 10 mg Documented By: JORGE Dextrose (Dextrose 50 % 25 Gm/50 Ml Syringe) 25 gm IVPUSH Q15M PRN; Protocol PRN Reason: per Hypoglycemia Standing Ord. Glucose (Glucose Gel 15 Gm Gel..Gram.) 15 gm PO Q15M PRN; Protocol PRN Reason: per Hypoglycemia Standing Ord. Heparin Sodium (Porcine) (Heparin Sodium,Porcine 5,000 Unit/Ml Vial) 5,000 unit SUBCUT Q8H ON LICENSE OF [facility] Last Admin: 06/25/25 09:09 Dose: 5,000 unit Documented By: JORGE Dextrose/Lactated Ringer's (D5lr) 1,000 mls @ 75 mls/hr IVCONT .[id number] ON LICENSE OF [facility] Last Admin: 06/25/25 16:01 Dose: 75 mls/hr Documented By: JORGE Insulin Human Lispro (Insulin Lispro 100 Unit/Ml 3 Ml Vial) 0 unit SUBCUT QIDACHS ON LICENSE OF [facility]; Protocol Last Admin: 06/25/25 16:06 Dose: Not Given Documented By: JORGE Non-Admin Reason: No Insulin Coverage Naloxone HCl (Naloxone Hcl 0.4 Mg/Ml Vial) 0.04 mg IVPUSH Q5M PRN PRN Reason: Excessive sedation or RR < 8 Ondansetron HCl (Ondansetron Hcl 4 Mg/2 Ml Vial) 4 mg IVPUSH Q6H PRN PRN Reason: Nausea and Vomiting Pantoprazole Sodium (Pantoprazole Sodium 40 Mg/10 Ml Vial) 40 mg IVPUSH DAILY@0630 ON LICENSE OF [facility] Last Admin: 06/25/25 06:15 Dose: 40 mg Documented By: JOSE ANTONIO Sodium Chloride (0.9 % Sodium Chloride Flush 3 Ml Syringe) 3 ml IVFLUSH QSHIFT ON LICENSE OF [facility] Last Admin: 06/25/25 16:01 Dose: 3 ml Documented By: JORGE Labs 06/23/25 21:11 06/24/25 13:12 Labs: Laboratory Results - last 24 hr 06/24/25 06/24/25 06/25/25 18:26 20:21 07:09 POC Glucose 162 H 217 H 141 H 06/25/25 06/25/25 11:27 15:57 POC Glucose 171 H 91 Assessment and Plan (1) Dysphagia: Status: Acute (2) Acute prerenal azotemia: Status: Acute Assessment and Plan: 74-year-old female with history of dysphagia diagnosed in 05/2023, diabetes, hypertension admitted for worsening dysphagia Dysphagia S/p esophageal dilatations x 2 without improvement in symptoms OPERATIONS DIRECTOR following recommending. Diet and thin liquids. However having significant difficulty and intolerant of liquids. Changed to nectar thick liquids CT soft tissue neck ordered to evaluate for any additional structural components that could be contributing to her dysphagia Trial baclofen Appreciate GI input Continue with PPI Continue IVF for now given intolerance of liquids ?Outpt follow up with neuro for further evaluation any any neuromuscular component Acute prerenal azotemia-resolved with IBS Follow renal function/lytes Spn-[id number] type 2 diabetes POC glucose, SSI Diabetic diet with modifications Hold Jardiance Hypertension Hold hydrochlorothiazide, telmisartan for now given renal function and difficulty with p.o. DVT prophylaxis-heparin DNR/DNI Requires ongoing inpatient stay due to ongoing dysphagia limiting the ability to tolerate adequate p.o. Quality Stroke Does the patient have a stroke diagnosis?: No VTE Prior VTE?: Yes VTE Risk Level:: Medical - moderate - high VTE Device Contraindication: Treatment Not Indicated VTE Drug Contraindication: N/A - Med Ordered
[2025-06-25 19:35] VITALS: BP 134/66; PULSE 106; RESP 18; TEMP 36.2; O2SAT 97
[2025-06-25 20:05] LABS: Glucose, Whole Blood 221 mg/dL (60-115)
[2025-06-26] VITALS (9 sets, daily range): BP systolic 122–179; BP diastolic 59–80; PULSE 62–80; RESP 16–18; TEMP 36.1–36.8; O2SAT 97–98
[2025-06-26] MEDS: Dextrose 5 % and Lactated Ring 1,000 ML 75 ML IVCONT (04:34)
[2025-06-26 06:17] LABS: Anion Gap 10 (12-20); Blood Urea Nitrogen 8 mg/dL (9-16); Calcium 8.9 mg/dL (8.4-10.2); Carbon Dioxide 25 mmol/L (22-29); Chloride 114 mmol/L (96-108); Creatinine Clr Calc Pharmacy 46.8; Estimated Glomerular Filt Rate > 60; Potassium 3.7 mmol/L (3.3-5.1); Sodium 145 mmol/L (135-145)
[2025-06-26 07:54] LABS: Glucose, Whole Blood 118 mg/dL (60-115)
--- NOTE | 2025-06-26 08:17 | PC.NURSE ---
Patient appears to be resting comfortably, eyes closed, unlabored breathing.
[2025-06-26] MEDS: 0.9 % Sodium Chloride Flush 3 ML SYRINGE IVFLUSH ×2 (09:39→17:24)
[2025-06-26 11:38] LABS: Glucose, Whole Blood 146 mg/dL (60-115)
--- NOTE | 2025-06-26 12:03 | P.PNIM_ITS ---
Subjective Subjective Date of Service: 06/26/25 Interval History: Follow up for pt with dysphagia, s/p EGD with balloon dilation on 06/24 No improvement after balloon dilation Yesterday pt was choking on thin liquids, downgraded to nectar thick liquid Has tolerated pureed diet, though eats very slowly Reports left side of her throat feels like it is closing ; then experiences episodes of wretching No N/V or abd pain Review of Systems Review of Systems: Yes all other systems are reviewed and are negative Physical Exam 2 Exam: Exam: General: AOx3, no acute distress Resp: CTA bilaterally CVS: S1, S2, RRR GI: +BS, NT, no distention Skin: Warm, dry Neuro: Cranial nerves II-XII grossly intact bilaterally. Motor grossly intact bilaterally Extremities: No edema Psych: Appropriate affect Vital Signs: Vital Signs: Last Vital Signs Temp 98.1 F 06/26/25 11:29 Pulse 80 06/26/25 11:29 Resp 16 06/26/25 11:29 BP 159/72 H 06/26/25 11:29 Pulse Ox 98 06/26/25 11:29 O2 Del Method Room Air 06/26/25 11:29 BMI result Body Mass Index 19.6 Objective Data Active Medications Baclofen (Baclofen 10 Mg Tablet) 10 mg PO TID [facility] Last Admin: 06/26/25 09:39 Dose: 10 mg Documented By: JORGE Dextrose (Dextrose 50 % 25 Gm/50 Ml Syringe) 25 gm IVPUSH Q15M PRN; Protocol PRN Reason: per Hypoglycemia Standing Ord. Glucose (Glucose Gel 15 Gm Gel..Gram.) 15 gm PO Q15M PRN; Protocol PRN Reason: per Hypoglycemia Standing Ord. Heparin Sodium (Porcine) (Heparin Sodium,Porcine 5,000 Unit/Ml Vial) 5,000 unit SUBCUT Q8H [facility] Last Admin: 06/26/25 09:39 Dose: 5,000 unit Documented By: JORGE Hydrochlorothiazide (Hydrochlorothiazide 12.5 Mg Tablet) 12.5 mg PO DAILY [facility]; Protocol Last Admin: 06/26/25 10:56 Dose: 12.5 mg Documented By: JROGE Acetaminophen (Ofirmev) 1,000 mg in 100 mls @ 400 mls/hr IV Q8H PRN PRN Reason: Pain, Moderate(Pain Scale 4-6) Stop: 06/26/25 23:29 Last Infusion: 06/26/25 00:29 Dose: Infused Documented By: CURLY Insulin Human Lispro (Insulin Lispro 100 Unit/Ml 3 Ml Vial) 0 unit SUBCUT QIDACHS [facility]; Protocol Last Admin: 06/26/25 11:52 Dose: Not Given Documented By: JORGE Non-Admin Reason: No Insulin Coverage Naloxone HCl (Naloxone Hcl 0.4 Mg/Ml Vial) 0.04 mg IVPUSH Q5M PRN PRN Reason: Excessive sedation or RR < 8 Ondansetron HCl (Ondansetron Hcl 4 Mg/2 Ml Vial) 4 mg IVPUSH Q6H PRN PRN Reason: Nausea and Vomiting Pantoprazole Sodium (Pantoprazole Sodium 40 Mg/10 Ml Vial) 40 mg IVPUSH DAILY@0630 [facility] Last Admin: 06/26/25 05:49 Dose: 40 mg Documented By: JOSE ANTONIO Sodium Chloride (0.9 % Sodium Chloride Flush 3 Ml Syringe) 3 [facility] Last Admin: 06/26/25 09:39 Dose: 3 ml Documented By: JORGE Labs 06/23/25 21:11 06/26/25 05:15 Labs: Laboratory Results - last 24 hr 06/25/25 06/25/25 06/26/25 15:57 19:59 05:15 Anion Gap 10 L Estim Creat Clear Calc 46.8 Estimated GFR > 60 POC Glucose 91 221 H Random Glucose 121 H Calcium 8.9 06/26/25 06/26/25 07:47 11:32 Anion Gap Estim Creat Clear Calc Estimated GFR POC Glucose 118 H 146 H Random Glucose Calcium Assessment and Plan (1) Dysphagia: Status: Acute Plan 74-year-old female with history of dysphagia diagnosed in 05/2023, diabetes, hypertension admitted for worsening dysphagia Dysphagia S/p esophageal dilatation on 06/24 without improvement in symptoms AIRLINE ATTENDANT following recommending pureed diet and thin liquids; however downgraded to nectar thick on after having significant difficulty tolerating thin liquids. CT soft tissue neck 06/25 to evaluate for any additional structural components that could be contributing to her dysphagia Continue baclofen, PPI EGD by GI on 06/24: Dysphagia likely due to esophageal motility or neurological disorder has no other pathology was detected Given continued dysphagia will check MBSS per GI recommendations Pt reports similar episode in 05/2023 with negative workup at that time; reports dysphagia persisted for months until resolving on its own in 08/2023 ?Outpt follow up with neuro for further evaluation any any neuromuscular component Acute prerenal azotemia-resolved with IVF Creatinine back to baseline [id number] type 2 diabetes POC glucose, SSI Diabetic diet with modifications Hold Jardiance given reduced p.o. intake Hypertension Continue hydrochlorothiazide, telmisartan DVT prophylaxis-heparin DNR/DNI Given patient's continued significant dysphagia and intolerance of p.o., pt will require continued hospitalization for continued monitoring and additional workup including MBSS on Friday. Quality Stroke Does the patient have a stroke diagnosis?: No VTE Prior VTE?: Yes VTE Risk Level:: Medical - moderate - high VTE Device Contraindication: Treatment Not Indicated VTE Drug Contraindication: N/A - Med Ordered
[2025-06-26 16:17] LABS: Glucose, Whole Blood 149 mg/dL (60-115)
--- NOTE | 2025-06-26 16:40 | MHC.CM.PN ---
PT CHANGED TO INPATIENT TODAY IMM DELIVERED CM MET WITH PT AND DAUGHTER AT BEDSIDE PTS DAUGHTER BELIEVES PT SHOULD HAVE BEEN INPT EARLIER SHE UNDERSTANDS SHE CAN DISCUSS THIS WITH A UR RN TOMORROW OR APPEAL THE EARLIER STATUS
[2025-06-26 21:22] LABS: Glucose, Whole Blood 108 mg/dL (60-115)
[2025-06-27] VITALS (7 sets, daily range): BP systolic 129–173; BP diastolic 63–80; PULSE 58–76; RESP 16–20; TEMP 36.1–36.8; O2SAT 94–99
[2025-06-27] MEDS: 0.9 % Sodium Chloride Flush 3 ML SYRINGE IVFLUSH ×4 (00:56→19:18)
[2025-06-27 07:30] LABS: Glucose, Whole Blood 113 mg/dL (60-115)
--- NOTE | 2025-06-27 11:19 | P.PNIM_ITS ---
Subjective Subjective Date of Service: 06/27/25 Interval History: Follow up for pt with dysphagia, s/p EGD with balloon dilation on 06/24 No improvement after balloon dilation Has tolerated pureed diet, though eats very slowly Review of Systems Review of Systems: Yes all other systems are reviewed and are negative Physical Exam 2 Exam: Exam: Appearing in no acute distress lung sounds are clear to auscultation heart regular rate rhythm, clear S1, S2 positive bowel sounds, abdomen is soft, nontender neuro patient is alert x3, no focal deficits Vital Signs: Vital Signs: Last Vital Signs Temp 97.1 F 06/27/25 07:30 Pulse 64 06/27/25 07:30 Resp 16 06/27/25 07:30 BP 150/70 H 06/27/25 07:30 Pulse Ox 94 06/27/25 07:30 O2 Del Method Room Air 06/27/25 07:30 BMI result Body Mass Index 19.6 Objective Data Active Medications Baclofen (Baclofen 10 Mg Tablet) 10 mg PO TID [facility]PLAC[facility] BY [facility] Last Admin: 06/27/25 08:05 Dose: 10 mg Documented By: LANI Dextrose (Dextrose 50 % 25 Gm/50 Ml Syringe) 25 gm IVPUSH Q15M PRN; Protocol PRN Reason: per Hypoglycemia Standing Ord. Glucose (Glucose Gel 15 Gm Gel..Gram.) 15 gm PO Q15M PRN; Protocol PRN Reason: per Hypoglycemia Standing Ord. Heparin Sodium (Porcine) (Heparin Sodium,Porcine 5,000 Unit/Ml Vial) 5,000 unit SUBCUT Q8H REPLACED [facility] Last Admin: 06/27/25 08:08 Dose: 5,000 unit Documented By: LANI Hydrochlorothiazide (Hydrochlorothiazide 12.5 Mg Tablet) 12.5 mg PO DAILY [facility]; Protocol Last Admin: 06/27/25 08:05 Dose: 12.5 mg Documented By: LANI Insulin Human Lispro (Insulin Lispro 100 Unit/Ml 3 Ml Vial) 0 unit SUBCUT QIDACHS REPLACED BY [facility]; Protocol Last Admin: 06/27/25 07:57 Dose: Not Given Documented By: LANI Non-Admin Reason: No Insulin Coverage Naloxone HCl (Naloxone Hcl 0.4 Mg/Ml Vial) 0.04 mg IVPUSH Q5M PRN PRN Reason: Excessive sedation or RR < 8 Ondansetron HCl (Ondansetron Hcl 4 Mg/2 Ml Vial) 4 mg IVPUSH Q6H PRN PRN Reason: Nausea and Vomiting Pantoprazole Sodium (Pantoprazole Sodium 40 Mg/10 Ml Vial) 40 mg IVPUSH DAILY@0630 [facility]PL[facility] Last Admin: 06/27/25 06:51 Dose: 40 mg Documented By: JOSE ANTONIO Sodium Chloride (0.9 % Sodium Chloride Flush 3 Ml Syringe) 3 ml IVFLUSH QSHIFT REPLACED BY [facility] Last Admin: 06/27/25 08:07 Dose: 3 ml Documented By: LANI Valsartan (Valsartan 160 Mg Tablet) 160 mg PO DAILY REPLACED BY [facility]; Protocol Last Admin: 06/27/25 08:05 Dose: 160 mg Documented By: LANI Labs 06/23/25 21:11 06/26/25 05:15 Labs: Laboratory Results - last 24 hr 06/26/25 06/26/25 06/26/25 11:32 16:12 21:15 POC Glucose 146 H 149 H 108 06/27/25 07:25 POC Glucose 113 Assessment and Plan (1) Dysphagia: Status: Acute Plan 74-year-old female with history of dysphagia diagnosed in 05/2023, diabetes, hypertension admitted for worsening dysphagia Dysphagia last episode 2022, no obvious pathology found Continue baclofen, PPI EGD by GI on 06/24>Dysphagia likely due to esophageal motility or neurological disorder has no other pathology was detected Given continued dysphagia will check MBSS per GI recommendations EVA resolved with IVF [id number] type 2 diabetes POC glucose, SSI Diabetic diet with modifications Hold Jardiance given reduced p.o. intake Hypertension Continue hydrochlorothiazide, telmisartan DVT prophylaxis-heparin DNR/DNI Given patient's continued significant dysphagia and intolerance of p.o., pt will require continued hospitalization for continued monitoring and additional workup including MBSS on Friday. Quality Stroke Does the patient have a stroke diagnosis?: No VTE Prior VTE?: Yes VTE Risk Level:: Medical - moderate - high VTE Device Contraindication: Treatment Not Indicated VTE Drug Contraindication: N/A - Med Ordered
[2025-06-27 11:28] LABS: Glucose, Whole Blood 124 mg/dL (60-115)
--- NOTE | 2025-06-27 12:06 | MHC.SL.SWA ---
Speech Pathologist Impression: Dysphagia, unidentified Risk of Aspiration Due to: Dysphasia Diet Status: NDD1 (puree), HTL. MBSS pending 06/27, further recommendations TBD given results of swallow visualization Patient reported history of dysphagia dating back to 2022. She was hospitalized at [facility] for her first choking episode. Patient says she had the same symptoms back then and recalls having both an endoscopy and barium swallow/esophagram, but does not recall anyone going over the findings with [her]. She was told by someone in the hospital to tuck her chin when swallowing, but is sure it was not a speech pathologist. She says she was discharged home still having trouble swallowing. She started off eating soft foods, mainly mashed up cooked egg yolks mixed with mayonnaise. She said she would start eating the one egg yolk at 7am and would take until 11am or 12pm to finish it. She says after eating food this way for about a week, her swallow gradually improved over the course of a week and was back to eating regular texture foods without restriction or difficulty. She had been doing well until this recent episode. Patient denies seeing a speech pathologist or GI specialist after her first hospitalization. Liquid Consistency and Strategies for Safe Swallow: Liquid Intake Recommendation: Thin Liquid Intake Strategies: Solid Food Consistency: Dietary Recommendations: Pureed (NDD1) Additional Modifications to Solid Foods: Oral Medication Intake: Crushed with Puree Please contact the pharmacy regarding appropriate crushable or liquid drug formulations that are available whenever modified delivery is recommended. Compensatory Strategies and Precautions to be Taken for Safe Swallow: Sitting Upright (90 deg) Chin Tuck Double Swallow Small Bites and Sips Alternate Liquids/Solids Rate of Ingestion Change Supervision While Eating and Drinking for Safe Swallow: Intermittent Supervision Foods to Avoid: Swallowing Recommended Treatments: Compens. Strategy Educat. Recommendation for Speech: Inpatient Speech Therapy Modified Barium Swallow Study - Inpatient Comment: Hospitalist consulted, pt declined visualization assessment as she reported she had one in the past and did not want another. VACUUM CONDITIONER OPERATOR clarified MBSS assessment with pt, then agreed to test. Pt discussed compensatory strategies she has been using to improve PO tolerance of purees and thickened liquids. Etiology of new onset dysphagia remains undiagnosed. Pt in agreement with continued VACUUM CONDITIONER OPERATOR tx after MBSS is indicated. Hospitalist, RN and evaluating VACUUM CONDITIONER OPERATOR notified that pt agreed to having MBSS. New order placed by hospitalist. Recc PUREED (NDD1) diet and HTL liquids, pills CRUSHED in PUREE. Patient is able to self feed (recc periodic check in's to monitor progression through meals). Inpatient modified barium swallow (MBSS) 06/27 to further evaluate for improved dysphagia management. Frequency/Duration: M-F daily while inpatient Date Range for Service Req: Timeline to reassess: Dehydrator Tender Clinican/Clinical Fellow: No Supervisory Statement: I have reviewed and agree with the student/clinical fellow's documentation: N/A Speech Language Pathologist: Alejandrina Meade M.S., CCC-VACUUM CONDITIONER OPERATOR
--- NOTE | 2025-06-27 13:07 | MHC.SPEECHCO ---
MBSS is scheduled w/ Radiology for tomorrow 06/28 at 10:30am- Notified attending FRANCHISE SALES DIRECTOR.
--- NOTE | 2025-06-27 15:26 | MHC.CM.PN ---
per rounds pt not ready for dc today
[2025-06-27 16:17] LABS: Glucose, Whole Blood 126 mg/dL (60-115)
[2025-06-27 20:28] LABS: Glucose, Whole Blood 124 mg/dL (60-115)
[2025-06-28 03:52] VITALS: BP 142/75; PULSE 59; RESP 16; TEMP 36.3; O2SAT 95
[2025-06-28 07:25] VITALS: BP 152/87; PULSE 66; RESP 16; TEMP 36.6; O2SAT 98
[2025-06-28 07:27] LABS: Glucose, Whole Blood 110 mg/dL (60-115)
[2025-06-28] MEDS: 0.9 % Sodium Chloride Flush 3 ML SYRINGE IVFLUSH (07:59)
--- NOTE | 2025-06-28 09:33 | P.DS_ITS ---
DS: Providers Provider Date of admission: 06/26/25 13:48 Date of discharge: 06/28/25 Primary care physician: Jef Noland NP Consults: 06/24/25 03:07 Consult to Gastroenterology Routine Consulting Provider: [facility] Reason for consultation: Possible EGD for dysphagia 06/28/25 07:37 Consult to Neurology Routine Consulting Provider: [facility] Reason for consultation: dysphagia ? old strokes DS: Diagnosis Discharge Diagnosis (1) Dysphagia: Status: Acute DS: Summary Hospital Course Hospital Course: HP as per admitting provider. 74-year-old female with a history of dysphagia diagnosed in May 2023 after presenting to [facility] with similar symptoms, she presented today with acute worsening of swallowing difficulties. On Friday, she experienced a choking episode while drinking water, prompting an urgent appointment with her primary care physician later that afternoon. By the following day (Friday), she became unable to swallow both liquids and solids, including medications, and has not eaten since Friday afternoon. She reports using a chin tuck maneuver to swallow her saliva. Her dysphagia was previously thought to be esophageal in origin, though she is unsure. An endoscopy was performed in May 2023 ([facility], GI Dr. Costello). Metoclopramide (Reglan) and baclofen were prescribed by her primary care physician on Friday for symptom management, but she has not been able to take them. Before Friday, the patient reported tolerating a regular diet without any issues. She denies pain with swallowing except for transient discomfort after choking episodes. She also denies coughing with eating, metallic taste, burning in the esophagus, nausea, vomiting, dry mouth, or breathing problems. ED course: Diazepam 5 Mg IV and Reglan 10 mg IV x 1 dose Vital signs: stable, afebrile Diagnostic studies: Serum creatinine 1.44, BUN 34, anion gap 22, bicarb 15, potassium 4.8, sodium 141, calcium 9.6, magnesium 2.1, glucose 70. CBC within normal limits. Respiratory panel negative. Discharge summary from [facility] 05/2023 reviewed: EGD: Normal esophageal pathology. Mild gastritis, duodenal ulcer COMORBID CONDITIONS: Dysphagia, Hypertension, type 2 diabetes mellitus, depression, history of DVT in adulthood MEDICATIONS: - Jardiance 10 mg daily, Telmisartan 80 mg daily (Prescribed on 06/20/25: metoclopramide (Reglan) and baclofen) SOCIAL HISTORY: - No cigarette use - Occasional alcohol use (a glass of wine with dinner) Dysphagia last episode 2022, no obvious pathology found Continue baclofen, PPI EGD by GI on 06/24>Dysphagia likely due to esophageal motility or neurological disorder has no other pathology was detected Brain CT showed old lacunar infarct that could be contributing to her episodes of dysphagia MBBS EVA resolved with IVF Nic-euhtpcz-vutyufrob type 2 diabetes. Treated with sliding scale, continue home medications Hypertension Continue hydrochlorothiazide, telmisartan Physical Exam Exam: Exam: Appearing in no acute distress head is normocephalic atraumatic eyes pupils are PERRLA sclera is anicteric mouth throat mucous membranes are intact and moist neck is supple no lymphadenopathy, no JVD noted lung sounds are clear to auscultation heart regular rate rhythm, clear S1, S2 positive bowel sounds, abdomen is soft, nontender neuro patient is alert x3, no focal deficits Vital Signs: Vital Signs: Last Vital Signs Temp 97.8 F 06/28/25 07:25 Pulse 66 06/28/25 07:25 Resp 16 06/28/25 07:25 BP 152/87 H 06/28/25 07:25 Pulse Ox 98 06/28/25 07:25 O2 Del Method Room Air 06/28/25 07:25 BMI result Body Mass Index 19.6 DS: Data Data Completed and Pending Pending studies at discharge: Pending at discharge 06/24/25 15:05 Surgical [PTH] Routine Labs on day of discharge: Laboratory Results - last 24 hr 06/27/25 06/27/25 06/27/25 11:20 16:09 20:15 POC Glucose 124 H 126 H 124 H 06/28/25 07:22 POC Glucose 110 Discharge Plan Discharge Anticipated Discharge Date/Time: 06/28/25 09:31 Patient Disposition: Home, Self-Care Discharge Diagnosis: Dysphagia Referrals: Jef Noland NP [Primary Care Provider, Internal Medicine] - 1 Week Discharge Medications: Continued metoclopramide HCl 5 mg tablet 5 mg PO TID telmisartan 80 mg tablet 80 mg PO DAILY hydrochlorothiazide 12.5 mg tablet 12.5 mg PO DAILY Jardiance 10 mg tablet 10 mg PO DAILY baclofen 5 mg tablet 5 mg PO TID cholecalciferol (vitamin D3) [Vitamin D3] 25 mcg (1,000 unit) Tablet 25 mcg PO DAILY Diet: Advance to usual diet Activity on Discharge: As tolerated Stand Alone Forms: Patient Portal Discharge page Print Language: Nepali Care Plan Goals: Continue techniques for swallowing Health Concerns: Dysphagia Plan of Treatment: Follow up with primary care provider as needed Take all medications as prescribed Assessment: See discharge summary
--- NOTE | 2025-06-28 10:15 | PM.NEUROCN ---
History of Present Illness Data of Consult Service Date: 06/28/25 Primary Care Provider: Jef Noland NP [facility] Reason for consult: Dysphagia This is a 74 yr. female with hypertension, type 2 diabetes mellitus, depression, history of DVT seen at [facility] on 06/23/25 with acute onset of swallowing difficulties starting 8 days ago. On Friday, she experienced a choking episode while drinking water, prompting an urgent appointment with her primary care physician later that afternoon. By the following day (Friday), she became unable to swallow both liquids and solids, including medications, and has not eaten since Friday afternoon. She reports using a chin tuck maneuver to swallow her saliva. Her dysphagia was previously thought to be esophageal in origin, though she is unsure. Metoclopramide (Reglan) and baclofen were prescribed by her primary care physician on Friday for symptom management, but she has not been able to take them. She was worked up at [facility] in May 2023 for a similar presentation with dysphagia. She was hospitalized for 4 days with negative workup. She recovered over a period of a month and after that she was fine for the next 22 months with no swallowing difficulties still 8 days ago. On 06/24/25 she had a negative upper endoscopy with emperic dilatation of esophagus. [facility] Past Medical History Medical History Acute prerenal azotemia Dysphagia DVT (deep venous thrombosis) Depression HTN (hypertension) Diabetes Surgical History Surgical History (Updated 06/24/25 @ 14:16 by Skylar Griffiths RN) Hx of hysterectomy History of esophagogastroduodenoscopy (EGD) Social History Social History Household Members: Children Housing: House Are you a primary adult daycare coordinator to a significant other at home: No Do you presently have visiting nurse or other home services: No Alcohol intake: current Alcohol type: wine Comment: medicated Patient Tobacco Use Status: Never used Tobacco Smoked in Last 30 Days: No Use of substances other than those prescribed or required for medical reasons: No Currently Displaying Signs/Symptoms of Drug Intoxication Withdrawal: No Have you been hit, kicked, punched, or otherwise hurt by someone within the past year? If so, by whom?: No Do you feel safe in your current relationship?: No Current Relationship Is there a partner from a previous relationship who is making you feel unsafe now?: No Are you made to feel afraid or neglected: No Are you DNR?: No Advance Directives: No Advance Directives Information Provided: Yes Do you have a plan to hurt others: No Plan Recently lost weight without trying: No Nutrition Risks: No Nutritional Risk Patient : No : No Poor oral hygiene: No service: No Meds Allergies Allergy/AdvReac Type Severity Reaction Status Date / Time No Known Allergies Allergy Verified 06/24/25 14:16 Active Medications: Current Medications Baclofen (Baclofen 10 Mg Tablet) 10 mg PO TID [facility] Last Admin: 06/27/25 21:09 Dose: Not Given Dextrose (Dextrose 50 % 25 Gm/50 Ml Syringe) 25 gm IVPUSH Q15M PRN; Protocol PRN Reason: per Hypoglycemia Standing Ord. Glucose (Glucose Gel 15 Gm Gel..Gram.) 15 gm PO Q15M PRN; Protocol PRN Reason: per Hypoglycemia Standing Ord. Heparin Sodium (Porcine) (Heparin Sodium,Porcine 5,000 Unit/Ml Vial) 5,000 unit SUBCUT Q8H [facility] Last Admin: 06/28/25 08:00 Dose: 5,000 unit Hydrochlorothiazide (Hydrochlorothiazide 12.5 Mg Tablet) 12.5 mg PO DAILY [facility]; Protocol Last Admin: 06/27/25 08:05 Dose: 12.5 mg Insulin Human Lispro (Insulin Lispro 100 Unit/Ml 3 Ml Vial) 0 unit SUBCUT QIDACHS [facility]; Protocol Last Admin: 06/28/25 07:31 Dose: Not Given Naloxone HCl (Naloxone Hcl 0.4 Mg/Ml Vial) 0.04 mg IVPUSH Q5M PRN PRN Reason: Excessive sedation or RR < 8 Ondansetron HCl (Ondansetron Hcl 4 Mg/2 Ml Vial) 4 mg IVPUSH Q6H PRN PRN Reason: Nausea and Vomiting Pantoprazole Sodium (Pantoprazole Sodium 40 Mg/10 Ml Vial) 40 mg IVPUSH DAILY@0630 [facility] Last Admin: 06/28/25 06:25 Dose: 40 mg Sodium Chloride (0.9 % Sodium Chloride Flush 3 Ml Syringe) 3 ml IVFLUSH QSHIFT [facility] Last Admin: 06/28/25 07:59 Dose: 3 ml Valsartan (Valsartan 160 Mg Tablet) 160 mg PO DAILY [facility]; Protocol Last Admin: 06/27/25 08:05 Dose: 160 mg Home Medications ?Medication ?Instructions ?Recorded ?Confirmed ?Last Taken ?Type baclofen 5 mg tablet 5 mg PO TID 06/24/25 06/24/25 06/20/25 History cholecalciferol (vitamin D3) 25 25 mcg PO DAILY 06/24/25 06/24/25 06/20/25 History mcg (1,000 unit) tablet (Vitamin D3) empagliflozin 10 mg tablet 10 mg PO DAILY 06/24/25 06/24/25 06/20/25 History (Jardiance) hydrochlorothiazide 12.5 mg tablet 12.5 mg PO DAILY 06/24/25 06/24/25 06/20/25 History metoclopramide HCl 5 mg tablet 5 mg PO TID 06/24/25 06/24/25 06/20/25 History telmisartan 80 mg tablet 80 mg PO DAILY 06/24/25 06/24/25 06/20/25 History Physical Exam Vital Signs: Vital Signs: Last Vital Signs Temp 97.8 F 06/28/25 07:25 Pulse 66 06/28/25 07:25 Resp 16 06/28/25 07:25 BP 152/87 H 06/28/25 07:25 Pulse Ox 98 06/28/25 07:25 O2 Del Method Room Air 06/28/25 07:25 BMI result Body Mass Index 19.6 Neuro: Other: She is alert and oriented with normal intellectual functions. Cranial nerves 2-12 are normal. Tongue moves normally palatal movements are normal. There is no facial weakness. She has mild neck flexion weakness. Remainder of the neurological examination is nonfocal. Results Labs 06/23/25 21:11 06/26/25 05:15 Assessment and Plan (1) Dysphagia: Qualifiers: Dysphagia type: unspecified Qualified Code(s): R13.10 - Dysphagia, unspecified Status: Acute Plan Acute onset of dysphagia with a similar presentation 2 years ago with complete resolution for about 22 months. Rule out cerebrovascular disease rule out myasthenia gravis. I have reviewed a CAT scan which shows fairly extensive white matter disease. Recommendation: MRI of the brain including DWI sequences. Check TSH, acetyl choline receptor antibody titers all 3 types, CPK Procedures Date of Service Date of Service: 06/28/25
[2025-06-28 11:24] VITALS: BP 148/71; PULSE 72; RESP 16; TEMP 37; O2SAT 97
[2025-06-28 11:34] LABS: Glucose, Whole Blood 139 mg/dL (60-115)
[2025-06-28] MEDS: Lactated Ringers 1,000 ML 80 ML IVCONT (11:52)
[2025-06-28 15:30] LABS: Glucose, Whole Blood 112 mg/dL (60-115)
--- NOTE | 2025-06-28 15:54 | P.PNIM_ITS ---
Subjective Subjective Date of Service: 06/28/25 Interval History: Follow up for pt with dysphagia, s/p EGD with balloon dilation on 06/24 No improvement after balloon dilation Has tolerated pureed diet, though eats very slowly Review of Systems Review of Systems: Yes all other systems are reviewed and are negative Physical Exam 2 Vital Signs: Vital Signs: Last Vital Signs Temp 98.6 F 06/28/25 11:24 Pulse 72 06/28/25 11:24 Resp 16 06/28/25 11:24 BP 148/71 H 06/28/25 11:24 Pulse Ox 97 06/28/25 11:24 O2 Del Method Room Air 06/28/25 11:24 BMI result Body Mass Index 19.6 Objective Data Active Medications Baclofen (Baclofen 10 Mg Tablet) 10 mg PO TID [facility] Last Admin: 06/28/25 14:57 Dose: Not Given Documented By: LANI Non-Admin Reason: Patient Refused Dextrose (Dextrose 50 % 25 Gm/50 Ml Syringe) 25 gm IVPUSH Q15M PRN; Protocol PRN Reason: per Hypoglycemia Standing Ord. Glucose (Glucose Gel 15 Gm Gel..Gram.) 15 gm PO Q15M PRN; Protocol PRN Reason: per Hypoglycemia Standing Ord. Heparin Sodium (Porcine) (Heparin Sodium,Porcine 5,000 Unit/Ml Vial) 5,000 unit SUBCUT Q8H [facility] Last Admin: 06/28/25 08:00 Dose: 5,000 unit Documented By: LANI Hydrochlorothiazide (Hydrochlorothiazide 12.5 Mg Tablet) 12.5 mg PO DAILY [facility]; Protocol Last Admin: 06/28/25 11:39 Dose: 12.5 mg Documented By: LANI Lactated Ringer's (Lr) 1,000 mls @ 80 mls/hr IVCONT .[id number] [facility] Stop: 06/29/25 00:29 Last Admin: 06/28/25 11:52 Dose: 80 mls/hr Documented By: LANI Insulin Human Lispro (Insulin Lispro 100 Unit/Ml 3 Ml Vial) 0 unit SUBCUT QIDACHS [facility]; Protocol Last Admin: 06/28/25 15:31 Dose: Not Given Documented By: LANI Non-Admin Reason: No Insulin Coverage Naloxone HCl (Naloxone Hcl 0.4 Mg/Ml Vial) 0.04 mg IVPUSH Q5M PRN PRN Reason: Excessive sedation or RR < 8 Ondansetron HCl (Ondansetron Hcl 4 Mg/2 Ml Vial) 4 mg IVPUSH Q6H PRN PRN Reason: Nausea and Vomiting Pantoprazole Sodium (Pantoprazole Sodium 40 Mg/10 Ml Vial) 40 mg IVPUSH DAILY@0630 [facility] Last Admin: 06/28/25 06:25 Dose: 40 mg Documented By: JOSE ANTONIO Sodium Chloride (0.9 % Sodium Chloride Flush 3 Ml Syringe) 3 ml IVFLUSH QSHIFT [facility] Last Admin: 06/28/25 15:15 Dose: Not Given Documented By: LANI Non-Admin Reason: IV Running Valsartan (Valsartan 160 Mg Tablet) 160 mg PO DAILY [facility]; Protocol Last Admin: 06/28/25 11:40 Dose: 160 mg Documented By: LANI Labs 06/23/25 21:11 06/26/25 05:15 Labs: Laboratory Results - last 24 hr 06/27/25 06/27/25 06/28/25 16:09 20:15 07:22 POC Glucose 126 H 124 H 110 06/28/25 06/28/25 11:30 15:25 POC Glucose 139 H 112 Assessment and Plan (1) Dysphagia: Status: Acute Plan 74-year-old female with history of dysphagia diagnosed in 05/2023, diabetes, hypertension admitted for worsening dysphagia Dysphagia last episode 2022, no obvious pathology found Continue baclofen, PPI EGD by GI on 06/24>Dysphagia likely due to esophageal motility or neurological disorder has no other pathology was detected Given continued dysphagia will check MBSS per GI recommendations Brain CT with old lacunar infarct and extensive white matter disease seen by Neurology with rec for MRI with DWI sequence, check TSH, acetyl choline receptors antibody titers and CPK EVA resolved with IVF [id number] type 2 diabetes POC glucose, SSI Diabetic diet with modifications Hold Jardiance given reduced p.o. intake Hypertension Continue hydrochlorothiazide, telmisartan DVT prophylaxis-heparin DNR/DNI Given patient's continued significant dysphagia and intolerance of p.o., pt will require continued hospitalization for continued monitoring and additional workup including MBSS on Friday. Quality Stroke Does the patient have a stroke diagnosis?: No VTE Prior VTE?: Yes VTE Risk Level:: Medical - moderate - high VTE Device Contraindication: Treatment Not Indicated VTE Drug Contraindication: N/A - Med Ordered
[2025-06-28 16:00] VITALS: BP 165/80; PULSE 70; RESP 18; TEMP 36.5; O2SAT 98
--- NOTE | 2025-06-28 17:21 | MHC.SL.IMP ---
Date of Plan of Treatment: 06/28/25 Onset of Symptoms/Illness: 06/24/25 Date Treatment Started: 06/24/25 Admitting Diagnosis: Dysphagia Primary Speech & Language Diagnosis: R13.11 Oral Phase Dysphagia Reason for Today's Visit: 93277 Modified Barium Swallow Study Pre-evaluation Dietary Consistencies: Pureed (NDD1) Pre-evaluation Liquid Consistency: Thin Pre-evaluation Medication Administration: Crushed with Puree Medical History: Modified Barium Swallow Study Fluoroscopic Evaluation of Swallowing Function CPT Code 96563 Evaluation Year: 2024 Reason for Study: Episodic dysphagia Referring Physician: Irma Hernandez NP Evaluating Clinician: Alexandria Arenas MA, CCC-AIRFRAME TECHNICIAN Study Number: 1 Patient Name: Katerine Sahu Status: Inpatient Age: 74 Sex: Female Medical History Dysphagia, Hypertension, type 2 diabetes mellitus, depression, history of DVT in adulthood Current (pre-evaluation) Intake/Diet: Route: PO Diet Grade: Puree Liquid Consistencies: Thin Pre-Study Functional Oral Intake Scale (FOIS): 5- Total oral intake of multiple consistencies requiring special preparation Pain: None reported at time of study SUBJECTIVE: Patient is a 74 year old female presenting to the ED on 06/23 with worsening of swallow difficulties. Patient reporting having a choking episode on Friday while drinking water and by Friday not being able to swallow any solids, liquids, or medications. She was seen by PCP for an urgent appointment and then presented to the hospital on after her difficulties persisted. Patient has had a previous episode back in May 2023 with similar symptoms. She was hospitalized at [facility], with her endoscopy at the time showing normal esophageal pathology, mild gastritis, and duodenal ulcer. She reports having a barium swallow/esophagram as well, but does not recall its findings. She was subsequently discharged home and was eating mashed egg yolks with mayonnaise for a week before her swallow ?returned to normal.? She then tolerated regular textures without incident for the past 22 months before this episode. Thus far, workup has been overall unremarkable, included another EGD on 06/24 which showed mildly tortuous esophagus without stricture or ring and no food bolus seen in the esophagus or stomach. A balloon dilation was performed in the proximal and distal esophagus. Soft Tissue Neck CT on 06/25 showed no mass, pathologic lymphadenopathy, abnormal fluid collection or other abnormality within the neck. Patient also had a Head CT 06/27 which revealed, ?Mild to moderate generalized atrophy and periventricular hypodensities likely related to small vessel angiopathy. There are also likely small lacunar infarct, involving the left anterior and posterior limbs of the internal capsule.? Patient reports she ?ate well on Friday? after seeing the AIRFRAME TECHNICIAN. She finished the vanilla pudding given to her by the AIRFRAME TECHNICIAN and then ate her entire dinner consisting of pureed vegetables, as patient prefers not to eat meat products. She says she ate minimally on Friday and Friday, and by Friday and Friday she has ?not been able to eat anything.? Patient reports she ?tried? honey thickened liquids, but has been unable to get any of it down. Oral Motor Exam Facial Symmetry: Symmetrical Mouth Occlusion: Normal Oral-Facial Teeth Characteristics: Intact/Normal, Partially Missing. Spaces Oral-Facial Smile (Lips) Description: Normal Oral-Facial Puff Cheeks Description: Normal Tongue Size: Normal Tongue Excursion Description: Normal Tongue Range of Movement Description: Normal Tongue Speed of Movement Description: Normal Tongue Strength of Movement (against opposing pressure): Normal Tongue Movement Characteristics: Normal/Absent Food and Liquid Trials: Oral Impairment: Lip Closure: 1=Interlabial escape; no progression to anterior tip Oral Impairment: Tongue Control During Bolus Hold: 2=Posterior escape of less than half of bolus Oral Impairment: Bolus Preparation/Mastication: 2=Disorganized chewing/mashing with solid pieces of bolus Oral Impairment: Bolus Transport/Lingual Motion: 3=Repetitive/disorganized tongue motion Oral Impairment: Oral Residue: 2=Residue collection on oral structures Oral Impairment:Initiation of Pharyngeal Swallow: 1=Bolus head in valleculae Pharyngeal Impairment: Soft Palate Elevation: 0=No bolus between soft palate (SP)/pharyngeal wall (PW) Pharyngeal Impairment: Laryngeal Elevation: 0=Complete superior movement of thyroid cartilage (see description) Pharyngeal Impairment: Anterior Hyoid Excursion: 1=Partial anterior movement Pharyngeal Impairment: Epiglottic Movement: 1=Partial inversion Pharyngeal Impairment: Laryngeal Vestibular Closure:: 0=Complete: no air/contrast in laryngeal vestibule Pharyngeal Impairment: Pharyngeal Stripping Wave: 0=Present: complete Pharyngeal Impairment: Pharyngeal Contraction: Did not test Pharyngeal Impairment: Pharyngoesophageal Segment Openin=Complete distension and complete duration: no obstruction of flow Pharyngeal Impairment: Tongue Base (TB) Retraction: 1=Trace column of contrast/air between TB and posterior PW Pharyngeal Impairment: Pharyngeal Residue: 0=Complete pharyngeal clearance Pharyngeal Impairment: Esophageal Clearance Upright Position: Did not test Impressions and Recommendations OBJECTIVE: Time-out: performed at 10:45 Evaluation Start: 10:30; Stop: 10:40 Patient Positioning: Seated 70-90 degrees Viewing Planes: LATERAL ONLY Contrast: MBSImP? Standardized Protocol using commercially prepared, standardized Barium viscosities, including: Varibar? THIN LIQUID (40% w/v, <15 cps) , Varibar? PUDDING (40% w/v, <6407-9356 cps) , 1/2 Shortbread Cookie (1 x1 x.25 ) MBSImP ID: [id number] MBSImP Results: Lip closure for intraoral bolus containment resulted in interlabial escape, without progression to the anterior lip. Tongue control during bolus hold resulted in posterior escape of less than half of the bolus. Bolus preparation and mastication demonstrated disorganized chewing/mashing with solid pieces of the bolus unchewed. Bolus transport/lingual motion was with repetitive/disorganized motion of the tongue. Oral residue was a collection on oral structures. Initiation of the pharyngeal swallow occurred when the bolus head was in the valleculae. Soft palate elevation resulted in no bolus between the soft palate and the pharyngeal wall. Laryngeal elevation demonstrated complete superior movement of the thyroid cartilage with complete approximation of the arytenoids to the epiglottic petiole. Anterior hyoid excursion demonstrated partial anterior movement. Epiglottic movement resulted in partial inversion. Laryngeal vestibular closure was complete, as indicated by no air or contrast within the laryngeal vestibule at the height of the swallow. Pharyngeal stripping wave was present and complete. Pharyngeal contraction could not be determined due to logistical reasons not related to physiologic impairment. Pharyngoesophageal segment opening was completely distended for complete duration with no obstruction of bolus flow. Tongue base retraction allowed a trace column of contrast or air between the retracted tongue base and the posterior pharyngeal wall. Pharyngeal residue was not present. There was complete pharyngeal clearance. Esophageal clearance in the upright position could not be assessed due to logistical reasons not related to physiologic impairment. Oral Impairment Score: 10 Pharyngeal Impairment Score: 2 (absence of score, component 13) Esophageal Impairment Score: --- (absence of score, component 17) Laryngeal Penetration and Aspiration: Neither penetration nor aspiration was observed in today's study with Cookie, Pudding-thick, Thin. ASSESSMENT: This exam was performed by the radiologist and the speech pathologist. Patient was seated upright at approximately 90 degrees in a wheelchair. She fed herself independently and trialed the following consistencies: -Thin liquid (via individual cup sips) -Puree (mixture applesauce w/ barium pudding) -Regular (shortbread cookies coated w/ barium pudding) Patient took very small amounts at a time, despite cues to take more on the spoon if able. Observations are made on small boluses (approximately1/2 teaspoon amounts per presentation). Incomplete lip closure. There was a small amount of liquid coating the interlabial escape without spillage onto the chin. Reduced tongue control as well, with premature posterior spillage from the oral cavity and trace contrast subsequently collecting in the valleculae and pyriforms prior to initiation of the pharyngeal swallow trigger. Mastication was mildly slowed and disorganized, as patient appeared to use her tongue to mash the bolus on the hard palate. Posterior bolus transport was delayed in initiation, marked by repetitive tongue pumping movements against the hard palate on most trials. Pharyngeal swallow trigger initiated as the bolus head reached the valleculae. Post-swallow, there was mild residue seen on the tongue, which cleared with subsequent swallows. No escape to the nasopharynx or nasal cavity. Complete laryngeal elevation, with partial epiglottic inversion and complete laryngeal vestibular closure. There was no evidence of aspiration or penetration during this exam. Complete pharyngeal clearance seen with solids and liquids and no obstruction of flow through the pharyngoesophageal segment opening (PES). Liquid Intake Recommendation: Thin Dietary Recommendations: Grnd/Mech Altered (NDD2) Medication Administration: Crushed with Puree Please contact the pharmacy regarding appropriate crushable or liquid drug formulations that are available whenever modified delivery is recommended. Compensatory Strategies Recommended: Sitting Upright (90 deg), Double Swallow, Small Bites and Sips, Alternate Liquids/Solids, Rate of Ingestion Change Supervision during eating and or drinking: Intermittent Supervision Recommended Treatments: Compens. Strategy Educat. Recommendation for Speech Therapy: Inpatient Speech Therapy Text Comment: Intake Recommendations: Route: PO Diet Grade: Mechanical Soft Liquid Consistencies: Thin Post-Study Functional Oral Intake Scale (FOIS): 5- Total oral intake of multiple consistencies requiring special preparation Patient presents with maladaptive oral phase, characterized by repetitive tongue pumping (amzy-oei-tflbw motion on the palate), disorganized chewing pattern, and presence of mild lingual residue which cleared on subsequent swallows. Patient reported that ?in order to start a swallow [she] presses the tip of her tongue on her teeth and the middle part of her tongue [tongue blade] on the roof of her mouth [palate].? Patient also hunched forward with her shoulders and tucked her chin in. She reports she was advised by a health professional during her last hospitalization to use the chin tuck maneuver ?in order to swallow better.? This appears to be another maladaptive behavior employed in an effort to swallow. During this exam, AIRFRAME TECHNICIAN cued patient to maintain neutral position upright at 90 degrees. Also noted repetitive pharyngeal pumping with difficulty initiating swallow trigger/ delayed pharyngeal response. Once pharyngeal swallow initiated, the pharyngeal phase was physiologically functional. Patient presented with complete laryngeal elevation, partial epiglottic inversion but with complete laryngeal vestibular closure. Airway protection was adequate with no evidence of aspiration or penetration on trials of solids and liquids during this exam. Patient also demonstrated complete clearance through the pharynx and no obstruction of flow through the PES. Suggested Referrals: The patient might benefit from a referral to: -Neurology Indication for Referral: Rule in/out any underlying neurological condition(s) which may affect patient?s ability to initiate pharyngeal swallow trigger and cause delayed pharyngeal response -Psychiatry Indication for Referral: Once neurological involvement is ruled out, work up for psychogenic dysphagia. -Dietitian Indication for Referral: Patient reports minimal PO intake over the weekend and no intake Mon-Tues. Therapy Recommendations: No evidence of aspiration or penetration. Good oral and pharyngeal clearance seen on imaging. Patient presented with maladaptive lingual pumping, delayed pharyngeal response, and other effortful behaviors, such as hunching forward and tucking chin. Otherwise, pharyngeal swallow appeared functional, with complete laryngeal elevation, adequate airway protection, complete laryngeal vestibular closure, and complete pharyngeal clearance, with no residual seen. Recommend continue workup with Neurology- Patient was recommended per Neurologist/Dr. Henry, to have Brain MRI, and workup to rule out cerebrovascular disease and myasthenia gravis. AIRFRAME TECHNICIAN will continue to follow for management of mild to moderate oral dysphagia with maladaptive behaviors and anxieties surrounding swallowing resulting in minimal oral intake. Treatment to target: -Education on swallow physiology and MBSS findings -Compensatory strategies (optimal upright 90 degree position, small bites/sips, slow pace, calm environment/minimize distractions at meal time, small portions more frequently throughout the day to encourage intake) -Daily monitoring (tx w/ AIRFRAME TECHNICIAN during meal time at least 1x daily) -Repeat-assessment for potential advancement of diet textures when appropriate. Patient expressed that ?the crackers were easier to swallow than liquid.? Patient remains fearful of swallowing hard solids, but is agreeable to trying a ground/mechanically altered diet, as it will still be soft and easy to chew, and moistened w/ sauces and gravies. Stockroom Associate Goals: ? The patient will tolerate the least restrictive diet with a safe/efficient swallow to maintain adequate nutrition and hydration. ? The patient and/or family will participate in further education for swallowing goals. Short Term Goals: ? Diet - The patient will tolerate a mechanical soft diet with thin liquids without signs or symptoms of penetration/aspiration 100% of the time. - The patient will participate in therapeutic PO trials with the AIRFRAME TECHNICIAN. ? Guidelines - The patient will comply with/recall the following guidelines/strategies 100% of the time with minimal cuing: Bolus Volume Change, Rate of Ingestion Change. ? Education - The patient will verbalize/demonstrate understanding of the results of this evaluation, the above recommendations, and the swallowing guidelines. Clinician - Supplemental, Miscellaneous Communication: It is important to note MBSS objective studies are snapshots in time and Patient function might vary with factors such as time of day or concomitant medical conditions. For this reason, the final treatment plan for this patient should rest with their medical care team. Additional recommendations should be considered with the totality of the Patient in mind. Thank for the opportunity to participate in the care of this patient. If you have any questions about the content of this report, please contact the [facility] at [facility]. Education: Education regarding findings from today's study and plans for therapy were provided to Patient only through Verbal Instruction. Understanding was expressed by the Patient only. Frequency/Duration: Daily while inpatient M-F Date Range for Service Requested: Timeline to reassess: PRN Railroad Operating Engineer Clinician/Clinical Fellow: No Supervisory Statement: N/A Speech Language Pathologist: Alexandria Arenas M.A., [facility]-AIRFRAME TECHNICIAN
[2025-06-28 17:26] LABS: Thyroid Stimulating Hormone 1.62 uIU/mL (0.32-4.0)
[2025-06-28 20:00] VITALS: BP 171/81; PULSE 79; RESP 19; TEMP 37.1; O2SAT 96
[2025-06-28 20:34] LABS: Glucose, Whole Blood 158 mg/dL (60-115)
[2025-06-28 23:46] VITALS: BP 158/74; PULSE 80; RESP 16; TEMP 36.5; O2SAT 93
[2025-06-29] VITALS (8 sets, daily range): BP systolic 138–177; BP diastolic 67–99; PULSE 75–89; RESP 16–19; TEMP 36.3–37; O2SAT 95–100; BMI 19.6
[2025-06-29] MEDS: 0.9 % Sodium Chloride Flush 3 ML SYRINGE IVFLUSH ×4 (00:51→20:57)
[2025-06-29 07:53] LABS: Glucose, Whole Blood 105 mg/dL (60-115)
--- NOTE | 2025-06-29 08:04 | HO.PM.IMPN ---
Subjective Subjective Date of Service: 06/29/25 Interval History: Follow up for pt with dysphagia, s/p EGD with balloon dilation on 06/24 No improvement after balloon dilation not tolerating diet Feels symptoms are worse with swallowing Review of Systems Review of Systems: Yes all other systems are reviewed and are negative Physical Exam Exam: Exam: Appearing in no acute distress lung sounds are clear to auscultation heart regular rate rhythm, clear S1, S2 positive bowel sounds, abdomen is soft, nontender neuro patient is alert x3, no focal deficits Vital Signs: Vital Signs: Last Vital Signs Temp 97.7 F 06/29/25 07:26 Pulse 76 06/29/25 07:26 Resp 16 06/29/25 07:26 BP 176/77 H 06/29/25 07:26 Pulse Ox 99 06/29/25 07:26 O2 Del Method Room Air 06/29/25 07:26 BMI result Body Mass Index 19.6 Objective Data Active Medications Baclofen (Baclofen 10 Mg Tablet) 10 mg PO TID [facility] Last Admin: 06/28/25 20:39 Dose: Not Given Documented By: EMELY Non-Admin Reason: Patient Refused Comments: pt refusing PO meds due to dysphagia Dextrose (Dextrose 50 % 25 Gm/50 Ml Syringe) 25 gm IVPUSH Q15M PRN; Protocol PRN Reason: per Hypoglycemia Standing Ord. Glucose (Glucose Gel 15 Gm Gel..Gram.) 15 gm PO Q15M PRN; Protocol PRN Reason: per Hypoglycemia Standing Ord. Heparin Sodium (Porcine) (Heparin Sodium,Porcine 5,000 Unit/Ml Vial) 5,000 unit SUBCUT Q8H [facility] Last Admin: 06/29/25 00:48 Dose: 5,000 unit Documented By: EMELY Hydrochlorothiazide (Hydrochlorothiazide 12.5 Mg Tablet) 12.5 mg PO DAILY [facility]; Protocol Last Admin: 06/28/25 11:39 Dose: 12.5 mg Documented By: LANI Insulin Human Lispro (Insulin Lispro 100 Unit/Ml 3 Ml Vial) 0 unit SUBCUT QIDACHS [facility]; Protocol Last Admin: 06/28/25 20:38 Dose: Not Given Documented By: EMELY Non-Admin Reason: Patient Refused Comments: poor Po intake, pt refusing food due to dysphagia Methylprednisolone Sodium Succinate (Methylprednisolone Sod Succ 40 Mg/Ml Vial) 40 mg IVPUSH Q24H [facility] Last Admin: 06/28/25 17:49 Dose: 40 mg Documented By: LANI Naloxone HCl (Naloxone Hcl 0.4 Mg/Ml Vial) 0.04 mg IVPUSH Q5M PRN PRN Reason: Excessive sedation or RR < 8 Ondansetron HCl (Ondansetron Hcl 4 Mg/2 Ml Vial) 4 mg IVPUSH Q6H PRN PRN Reason: Nausea and Vomiting Pantoprazole Sodium (Pantoprazole Sodium 40 Mg/10 Ml Vial) 40 mg IVPUSH DAILY@0630 [facility] Last Admin: 06/29/25 05:57 Dose: 40 mg Documented By: EMELY Sodium Chloride (0.9 % Sodium Chloride Flush 3 Ml Syringe) 3 ml IVFLUSH QSHIFT [facility] Last Admin: 06/29/25 00:51 Dose: 3 ml Documented By: EMELY Valsartan (Valsartan 160 Mg Tablet) 160 mg PO DAILY [facility]; Protocol Last Admin: 06/28/25 11:40 Dose: 160 mg Documented By: LANI Labs 06/29/25 05:30 06/29/25 05:30 Labs: Laboratory Results - last 24 hr 06/28/25 06/28/25 06/28/25 11:30 15:25 16:25 POC Glucose 139 H 112 Estimat Average Glucose Hemoglobin A1c % Total Creatine Kinase 51 TSH 1.62 06/28/25 06/29/25 06/29/25 20:29 05:30 07:32 POC Glucose 158 H 105 Estimat Average Glucose 137 Hemoglobin A1c % 6.4 H Total Creatine Kinase TSH Assessment and Plan (1) Dysphagia: Status: Acute Plan 74-year-old female with history of dysphagia diagnosed in 05/2023, diabetes, hypertension admitted for worsening dysphagia Severe Dysphagia last episode 2022, no obvious pathology found EGD by GI on 06/24>Dysphagia likely due to esophageal motility or neurological/psychological disorder has no other pathology was detected MBBS 06/[address] with old lacunar infarct and extensive white matter disease seen by Neurology with rec for MRI with DWI sequence, check TSH, acetyl choline receptors antibody titers and CPK started on steroid for possibility of MG continue IV PPI not taking po, will start PPN Try dose of valium EVA secondary to poor po intake resolved with IVF [id number] type 2 diabetes POC glucose, SSI Diabetic diet with modifications if able to take po Hypertension unable to take hydrochlorothiazide, telmisartan due to severe dysphagia IV hydralazine for SBP >180 DVT prophylaxis-heparin DNR/DNI Given patient's continued significant dysphagia and intolerance of p.o., pt will require continued hospitalization for initiation of PPN Quality Stroke Does the patient have a stroke diagnosis?: No VTE Prior VTE?: Yes VTE Risk Level:: Medical - moderate - high VTE Device Contraindication: Treatment Not Indicated VTE Drug Contraindication: N/A - Med Ordered
[2025-06-29] MEDS: diazePAM 10 MG/2 ML CARTRIDGE 2.5 MG IVPUSH ×2 (08:13→16:51)
[2025-06-29 08:25] LABS: MANUAL DIFF FLAG NO
[2025-06-29 08:44] LABS: Hematocrit 33.8 % (37.0-47.0); Hemoglobin 11.8 g/dl (12.0-16.0); Imm Gran Abs Auto 0.03 X10*3/uL (0.00-0.03); Imm Gran Pct Auto 0.5 % (0.0-0.4); Lymphocytes Absolute Auto 1.0 X10*3/uL (1.2-4.9); Mean Corpuscular HGB Conc 34.9 g/dl (31.0-35.0); Mean Corpuscular Hemoglobin 32.1 pg (27.0-33.0); Mean Corpuscular Volume 91.8 fL (80.0-98.0); NRBC Abs Auto 0.000 X10*3/uL (0.0-0.012); NRBC Pct Auto 0.0 /100WBC (0.0-0.2); Platelet Count 301 X10*3/uL (160-400); Red Blood Count 3.68 X10*6/uL (4.20-5.50); White Blood Count 5.6 X10*3/uL (4.8-10.8)
[2025-06-29 08:56] LABS: Albumin Level 3.7 g/dL (3.5-5.0); Anion Gap 12 (12-20); Blood Urea Nitrogen 14 mg/dL (9-16); Calcium 9.1 mg/dL (8.4-10.2); Carbon Dioxide 27 mmol/L (22-29); Chloride 106 mmol/L (96-108); Creatinine Clr Calc Pharmacy 45.7; Estimated Glomerular Filt Rate > 60; Magnesium 1.6 mg/dL (1.6-2.6); Potassium 3.7 mmol/L (3.3-5.1); Sodium 141 mmol/L (135-145)
--- NOTE | 2025-06-29 11:00 | MHC.CLN ---
CONSULT PT TO START PPN PER PROVIDER R/T PROLONGED POOR PO INTAKE SECONDARY TO DYSPHAGIA S/P EGD WITH BALLOON DILATION 06/24 WITHOUT IMPROVEMENT NOT TOLERATING DIET-PT FEELS SYMPTOMS ARE WORSE MBBS 06/28 FINDINGS NORMAL-PLUMBER FOLLOWING PT WITH VEGETARIAN GRD DIET IN PLACE REVIEWED LABS DISCUSSED WITH PHARMACY RECOMMEND PPN AT 60ML/HR TO PROVIDE 734KCALS, 144G DEXTROSE, 61G PROTEIN REPLETE LYTES NEEDED; CHECK TRIGS MONITOR PO INTAKE CLOSELY SEE FULL ASSESSMENT
[2025-06-29 11:07] LABS: Glucose, Whole Blood 100 mg/dL (60-115)
--- NOTE | 2025-06-29 13:53 | MHC.CM.PN ---
per rounds pt expected to dc tomorrow physical therapy is saying no pt indicated dc plan remains home n/s
[2025-06-29 16:31] LABS: Glucose, Whole Blood 94 mg/dL (60-115)
--- NOTE | 2025-06-29 18:37 | PM.PSYCN ---
History of Present Illness Date of Service: 06/29/2025 Chief Complaint: dysphagia Reason for Consult: Dysphagia Requesting physician: Irma Hernandez Discussed with referring provider: Yes Sources of Information: patient interviewed and chart reviewed HPI Narrative: 74-year-old female with a history of known dysphagia, hypertension and diabetes presented to [facility] on 06/24/25 with worsening dysphagia. Patient was found sitting on her bed in her room. She is alert oriented x4. States her symptoms started, suddenly, 4 days before she presented to the ED. She was unable to drink her coffee and orange juice that morning. In the early afternoon, she saw her primary care provider who prescribed Reglan and baclofen and was able to tolerate 1 dose of the medications. Her symptoms worsened and she was not able to tolerate fluids or solids the days that followed. Therefore, she presented to the ED. She received 5 mg of IV diazepam in the ED and notes that she was able to eat her entire dinner, without choking, after she was transferred to the medical floor that day. She has not been able to tolerate fluids or food since then. She states that she has been choking on her saliva since the onset of her symptoms. She denies associated symptoms such as nausea, vomiting, GI discomfort, or bowel changes. She was at [facility] for similar presentation in May 2023 where endoscopy was normal and was discharged home without additional intervention. She denies psychiatric history or taking psychotropic medications. She denies trauma or stressors. She denies any psychiatric symptoms at this time. So far, her swallow evaluation is normal and had CT and MRI revealed small vessel disease. Past Psychiatric History: None Medical Evaluation Reviewed: Yes Review of Systems Review of Systems ENT: Reports difficulty swallowing Yes all other systems are reviewed and are negative [facility] Medical History Acute prerenal azotemia Dysphagia DVT (deep venous thrombosis) Depression HTN (hypertension) Diabetes Surgical History Hx of hysterectomy History of esophagogastroduodenoscopy (EGD) Diagnostics Vital Signs (24Hr): Vital Signs - 24 hr 06/28/25 20:00 06/28/25 23:46 06/29/25 03:47 Temperature 98.7 F 97.7 F 97.4 F Pulse Rate 79 80 75 Respiratory Rate 19 16 16 Blood Pressure 171/81 H 158/74 H 138/69 Pulse Oximetry 96 93 95 Oxygen Delivery Method Room Air Room Air Room Air 06/29/25 07:26 06/29/25 09:27 06/29/25 10:27 Temperature 97.7 F Pulse Rate 76 89 Respiratory Rate 16 Blood Pressure 176/77 H 177/79 H Pulse Oximetry 99 97 Oxygen Delivery Method Room Air 06/29/25 11:48 06/29/25 16:00 Temperature 97.8 F 98.6 F Pulse Rate 89 84 Respiratory Rate 16 19 Blood Pressure 142/99 H 145/67 H Pulse Oximetry 100 99 Oxygen Delivery Method Room Air Room Air BMI result Body Mass Index 19.6 Labs 06/29/25 05:30 06/30/25 05:58 Labs: Laboratory Results - last 48 hr 06/27/25 06/28/25 06/28/25 20:15 07:22 11:30 WBC RBC Hgb Hct MCV MCH MCHC RDW Plt Count MPV Immature Gran % (Auto) Neut % (Auto) Lymph % (Auto) [place] % (Auto) Eos % (Auto) Baso % (Auto) Lymph # (Auto) [place] # (Auto) Eos # (Auto) Baso # (Auto) Abs Immat Gran (auto) Absolute Neuts (auto) Absolute Nucleated RBC Nucleated RBC % (auto) Sodium Potassium Chloride Carbon Dioxide Anion Gap BUN Creatinine Estim Creat Clear Calc Estimated GFR POC Glucose 124 H 110 139 H Random Glucose Estimat Average Glucose Hemoglobin A1c % Calcium Phosphorus Magnesium Total Creatine Kinase Albumin TSH 06/28/25 06/28/25 06/28/25 15:25 16:25 20:29 WBC RBC Hgb Hct MCV MCH MCHC RDW Plt Count MPV Immature Gran % (Auto) Neut % (Auto) Lymph % (Auto) [place] % (Auto) Eos % (Auto) Baso % (Auto) Lymph # (Auto) [place] # (Auto) Eos # (Auto) Baso # (Auto) Abs Immat Gran (auto) Absolute Neuts (auto) Absolute Nucleated RBC Nucleated RBC % (auto) Sodium Potassium Chloride Carbon Dioxide Anion Gap BUN Creatinine Estim Creat Clear Calc Estimated GFR POC Glucose 112 158 H Random Glucose Estimat Average Glucose Hemoglobin A1c % Calcium Phosphorus Magnesium Total Creatine Kinase 51 Albumin TSH 1.62 06/29/25 06/29/25 06/29/25 05:30 07:32 11:03 WBC 5.6 RBC 3.68 L Hgb 11.8 L Hct 33.8 L MCV 91.8 MCH 32.1 MCHC 34.9 RDW 12.6 Plt Count 301 MPV 10.9 Immature Gran % (Auto) 0.5 H Neut % (Auto) 76.4 H Lymph % (Auto) 18.6 L [place] % (Auto) 4.5 Eos % (Auto) 0.0 Baso % (Auto) 0.0 Lymph # (Auto) 1.0 L [place] # (Auto) 0.3 Eos # (Auto) 0.0 Baso # (Auto) 0.0 Abs Immat Gran (auto) 0.03 Absolute Neuts (auto) 4.3 Absolute Nucleated RBC 0.000 Nucleated RBC % (auto) 0.0 Sodium 141 Potassium 3.7 Chloride 106 Carbon Dioxide 27 Anion Gap 12 BUN 14 Creatinine 0.87 Estim Creat Clear Calc 45.7 Estimated GFR > 60 POC Glucose 105 100 Random Glucose 129 H Estimat Average Glucose 137 Hemoglobin A1c % 6.4 H Calcium 9.1 Phosphorus 4.1 Magnesium 1.6 Total Creatine Kinase Albumin 3.7 TSH 06/29/25 16:24 WBC RBC Hgb Hct MCV MCH MCHC RDW Plt Count MPV Immature Gran % (Auto) Neut % (Auto) Lymph % (Auto) [place] % (Auto) Eos % (Auto) Baso % (Auto) Lymph # (Auto) [place] # (Auto) Eos # (Auto) Baso # (Auto) Abs Immat Gran (auto) Absolute Neuts (auto) Absolute Nucleated RBC Nucleated RBC % (auto) Sodium Potassium Chloride Carbon Dioxide Anion Gap BUN Creatinine Estim Creat Clear Calc Estimated GFR POC Glucose 94 Random Glucose Estimat Average Glucose Hemoglobin A1c % Calcium Phosphorus Magnesium Total Creatine Kinase Albumin TSH Imaging Radiology Impressions: ITS Impressions Soft Tissue Neck CT 06/25/25 14:42 IMPRESSION: 1. There is no mass, pathologic lymphadenopathy, abnormal fluid collection, or other abnormality within the neck. 2. Ancillary findings as discussed in the body of the report. Electronically signed by: Luis Mcbride MD 06/27/2025 09:00 AM [facility] Head CT 06/27/25 15:30 IMPRESSION: Mild to moderate generalized atrophy and periventricular hypodensities likely related to small vessel angiopathy. There are also likely small lacunar infarct, involving the left anterior and posterior limbs of the internal capsule. Electronically signed by: Juan Rodriguez MD 06/27/2025 04:01 PM EST RP Modified Barium Swallow 06/28/25 10:30 IMPRESSION: No evidence of aspiration seen during the study. See speech pathology report for details. Electronically signed by: Leo Valenzuela MD 06/28/2025 04:05 PM EST RP Brain MRI 06/29/25 08:46 IMPRESSION: No acute brain abnormality. Few old microhemorrhages which could be hypertensive etiology. Small vessel occlusive disease. Probable inflammatory processes versus effusion, mastoid air cells. Electronically signed by: Flip Guzman MD 06/29/2025 09:28 AM EST RP Mental Status Exam Mental Status Exam Narrative: Appearance: Casually dressed, adequate hygiene and grooming Behavior: Calm and cooperative throughout the interview. Eye contact is appropriate, and there are no signs of psychomotor agitation or retardation Speech: Normal volume and prosody Thought process: Logical and goal-directed Thought content: Future oriented no self-harming thoughts Mood: Euthymic Affect: Mood-congruent SI: Denies HI: Denies VH/AH: None Delusions: None Insight/judgment: Good insight and judgment Memory/cog: Alert, oriented x 4. grossly intact to conversational testing Medications Medications Current Medications Baclofen (Baclofen 10 Mg Tablet) 10 mg PO TID [facility] Last Admin: 06/29/25 16:06 Dose: Not Given Dextrose (Dextrose 50 % 25 Gm/50 Ml Syringe) 25 gm IVPUSH Q15M PRN; Protocol PRN Reason: per Hypoglycemia Standing Ord. Diazepam (Diazepam 10 Mg/2 Ml Cartridge) 2.5 mg IVPUSH Q6H PRN PRN Reason: dysphagia Last Admin: 06/29/25 16:51 Dose: 2.5 mg Glucose (Glucose Gel 15 Gm Gel..Gram.) 15 gm PO Q15M PRN; Protocol PRN Reason: per Hypoglycemia Standing Ord. Heparin Sodium (Porcine) (Heparin Sodium,Porcine 5,000 Unit/Ml Vial) 5,000 unit SUBCUT Q8H [facility] Last Admin: 06/29/25 17:19 Dose: 5,000 unit Hydralazine HCl (Hydralazine Hcl 20 Mg/Ml Vial) 5 mg IVPUSH Q4H PRN; Protocol PRN Reason: SBP>180 Hydrochlorothiazide (Hydrochlorothiazide 12.5 Mg Tablet) 12.5 mg PO DAILY [facility]; Protocol Last Admin: 06/29/25 09:38 Dose: Not Given Nutrition (Parenteral) (Parenteral Nutrition) 1,440 mls @ 60 mls/hr IV .Q24H [facility]; Protocol Stop: 06/30/25 20:59 Insulin Human Lispro (Insulin Lispro 100 Unit/Ml 3 Ml Vial) 0 unit SUBCUT QIDACHS [facility]; Protocol Last Admin: 06/29/25 16:51 Dose: Not Given Methylprednisolone Sodium Succinate (Methylprednisolone Sod Succ 40 Mg/Ml Vial) 40 mg IVPUSH Q24H [facility] Last Admin: 06/29/25 17:16 Dose: 40 mg Naloxone HCl (Naloxone Hcl 0.4 Mg/Ml Vial) 0.04 mg IVPUSH Q5M PRN PRN Reason: Excessive sedation or RR < 8 Ondansetron HCl (Ondansetron Hcl 4 Mg/2 Ml Vial) 4 mg IVPUSH Q6H PRN PRN Reason: Nausea and Vomiting Pantoprazole Sodium (Pantoprazole Sodium 40 Mg/10 Ml Vial) 40 mg IVPUSH DAILY@0630 [facility] Last Admin: 06/29/25 05:57 Dose: 40 mg Pharmacy Consult (Consult Rx Parenteral Nutrition Ordering) 1 each MISCELLANE DAILY PRN PRN Reason: Consult order Sodium Chloride (0.9 % Sodium Chloride Flush 3 Ml Syringe) 3 ml IVFLUSH QSHIFT [facility] Last Admin: 06/29/25 16:52 Dose: 3 ml Valsartan (Valsartan 160 Mg Tablet) 160 mg PO DAILY [facility]; Protocol Last Admin: 06/29/25 09:39 Dose: Not Given Allergies Allergies Allergy/AdvReac Type Severity Reaction Status Date / Time No Known Allergies Allergy Verified 06/24/25 14:16 Assessment & Plan Assessment & Plan (1) Dysphagia: Qualifiers: Dysphagia type: unspecified Qualified Code(s): R13.10 - Dysphagia, unspecified Status: Acute Code(s): R13.10 - Dysphagia, unspecified Assessment and Plan: 74-year-old female with a history of known dysphagia, hypertension and diabetes presented to [facility] on 06/24/25 with worsening dysphagia. Patient was found sitting on her bed in her room. She is alert oriented x4. States her symptoms started, suddenly, 4 days before she presented to the ED. She was unable to drink her coffee and orange juice that morning. In the early afternoon, she saw her primary care provider who prescribed Reglan and baclofen and was able to tolerate 1 dose of the medications. Her symptoms worsened and she was not able to tolerate fluids or solids the days that followed. Therefore, she presented to the ED. She received 5 mg of IV diazepam in the ED and notes that she was able to eat her entire dinner, without choking, after she was transferred to the medical floor that day. She has not been able to tolerate fluids or food since then. She states that she has been choking on her saliva since the onset of her symptoms. She denies associated symptoms such as nausea, vomiting, GI discomfort, or bowel changes. She was at [facility] for similar presentation in May 2023 where endoscopy was normal and was discharged home without additional intervention. She denies psychiatric history or taking psychotropic medications. She denies trauma or stressors. She denies any psychiatric symptoms at this time. So far, her swallow evaluation is normal and had CT and MRI revealed small vessel disease. Plan/Recommendation: Functional neurological symptom disorder is challenging to diagnose. It is a diagnosis of exclusion that cannot be made at this time, given that patient is not completely medically cleared. She is still being worked up by Neurology. If symptoms persist once medically cleared, psychoeducation and CBT may be most effective in reducing symptoms and improving function. Antidepressants or anxiolytic may be useful for comorbid psychiatric symptoms. Total time managing care of this patient today ____ minutes. Patient educated on: diagnosis, medication risk/benefits and therapeutic strategies
[2025-06-29 20:42] LABS: Glucose, Whole Blood 169 mg/dL (60-115)
[2025-06-29] MEDS: Parenteral Nutrition 1,440 ML 60 ML IV (20:49)
[2025-06-30 03:24] VITALS: BP 143/65; PULSE 62; RESP 17; TEMP 36.1; O2SAT 97
[2025-06-30 06:30] LABS: Alanine Aminotransferase 43 U/L (0-31); Albumin Level 3.8 g/dL (3.5-5.0); Alkaline Phosphatase 72 U/L (39-117); Anion Gap 14 (12-20); Aspartate Amino Transferase 48 U/L (5-31); Blood Urea Nitrogen 24 mg/dL (9-16); Calcium 9.1 mg/dL (8.4-10.2); Carbon Dioxide 23 mmol/L (22-29); Chloride 107 mmol/L (96-108); Creatinine Clr Calc Pharmacy 46.8; Estimated Glomerular Filt Rate > 60; Magnesium 1.9 mg/dL (1.6-2.6); Potassium 4.0 mmol/L (3.3-5.1); Sodium 140 mmol/L (135-145); Total Protein 6.1 g/dL (6.5-8.0); Triglycerides 152 mg/dL (<150)
[2025-06-30 07:05] VITALS: BP 171/79; PULSE 96; RESP 16; TEMP 36.2; O2SAT 97
[2025-06-30 07:17] LABS: Glucose, Whole Blood 160 mg/dL (60-115)
[2025-06-30] MEDS: diazePAM 10 MG/2 ML CARTRIDGE 2.5 MG IVPUSH (07:40)
[2025-06-30] MEDS: 0.9 % Sodium Chloride Flush 3 ML SYRINGE IVFLUSH (07:43)
--- NOTE | 2025-06-30 10:29 | MHC.CLN ---
F/U PT WITH VEGETARIAN GRD DIET IN PLACE 25% X1 MEAL YESTERDAY REVIEWED LABS; TRIGS 152 DISCUSSED WITH PHARMACY RECOMMEND PPN AT 60ML/HR WITH 82G LIPIDS TO PROVIDE 1554 TOTAL KCALS (30KCALS/KG), 144G DEXTROSE, 61G PROTEIN (1.2G/KG) REPLETE LYTES NEEDED MONITOR PO INTAKE CLOSELY
[2025-06-30 11:35] VITALS: BP 169/78; PULSE 78; RESP 16; TEMP 36.2; O2SAT 98
[2025-06-30 11:37] LABS: Glucose, Whole Blood 142 mg/dL (60-115)
--- NOTE | 2025-06-30 14:31 | MHC.SL.SWA ---
Speech Pathologist Impression: Psychogenic Dysphagia Risk of Aspiration Due to: Dysphasia Diet Status: (Vegetarian) Ground Mechanical (NDD2) with Thin Liquids, pills crushed in puree. Patient is a 74 year old female presenting to the ED on 06/23 with worsening of swallow difficulties. Patient reporting having a choking episode on Friday while drinking water and by Friday not being able to swallow any solids, liquids, or medications. She was seen by PCP for an urgent appointment and then presented to the hospital on after her difficulties persisted. Patient has had a previous episode back in May 2023 with similar symptoms. She was hospitalized at [facility], with her endoscopy at the time showing normal esophageal pathology, mild gastritis, and duodenal ulcer. She reports having a barium swallow/esophagram as well, but does not recall its findings. She was subsequently discharged home and was eating mashed egg yolks with mayonnaise for a week before her swallow ?returned to normal.? She then tolerated regular textures without incident for the past 22 months before this episode. Thus far, workup has been overall unremarkable, included another EGD on 06/24 which showed mildly tortuous esophagus without stricture or ring and no food bolus seen in the esophagus or stomach. A balloon dilation was performed in the proximal and distal esophagus. Soft Tissue Neck CT on 06/25 showed no mass, pathologic lymphadenopathy, abnormal fluid collection or other abnormality within the neck. Patient also had a Head CT 06/27 which revealed, ?Mild to moderate generalized atrophy and periventricular hypodensities likely related to small vessel angiopathy. There are also likely small lacunar infarct, involving the left anterior and posterior limbs of the internal capsule.? Liquid Consistency and Strategies for Safe Swallow: Liquid Intake Recommendation: Thin Liquid Intake Strategies: Small Sips Solid Food Consistency: Dietary Recommendations: Grnd/Mech Altered (NDD2) Additional Modifications to Solid Foods: Oral Medication Intake: Crushed with Puree Please contact the pharmacy regarding appropriate crushable or liquid drug formulations that are available whenever modified delivery is recommended. Compensatory Strategies and Precautions to be Taken for Safe Swallow: Sitting Upright (90 deg) Double Swallow Small Bites and Sips Alternate Liquids/Solids Rate of Ingestion Change Supervision While Eating and Drinking for Safe Swallow: Intermittent Supervision Foods to Avoid: Swallowing Recommended Treatments: Compens. Strategy Educat. Recommendation for Speech: Inpatient Speech Therapy Comment: Intake Recommendations: Route: PO Diet Grade: Mechanical Soft Liquid Consistencies: Thin Post-Study Functional Oral Intake Scale (FOIS): 5- Total oral intake of multiple consistencies requiring special preparation Patient presents with maladaptive oral phase, characterized by repetitive tongue pumping (oxyn-xvb-bfyfr motion on the palate), disorganized chewing pattern, and presence of mild lingual residue which cleared on subsequent swallows. Patient reported that ?in order to start a swallow [she] presses the tip of her tongue on her teeth and the middle part of her tongue [tongue blade] on the roof of her mouth [palate].? Patient also hunched forward with her shoulders and tucked her chin in. She reports she was advised by a health professional during her last hospitalization to use the chin tuck maneuver ?in order to swallow better.? This appears to be another maladaptive behavior employed in an effort to swallow. During this exam, MANAGER BENCH cued patient to maintain neutral position upright at 90 degrees. Also noted repetitive pharyngeal pumping with difficulty initiating swallow trigger/ delayed pharyngeal response. Once pharyngeal swallow initiated, the pharyngeal phase was physiologically functional. Patient presented with complete laryngeal elevation, partial epiglottic inversion but with complete laryngeal vestibular closure. Airway protection was adequate with no evidence of aspiration or penetration on trials of solids and liquids during this exam. Patient also demonstrated complete clearance through the pharynx and no obstruction of flow through the PES. Suggested Referrals: The patient might benefit from a referral to: -Neurology Indication for Referral: Rule in/out any underlying neurological condition(s) which may affect patient?s ability to initiate pharyngeal swallow trigger and cause delayed pharyngeal response -Psychiatry Indication for Referral: Once neurological involvement is ruled out, work up for psychogenic dysphagia. -Dietitian Indication for Referral: Patient reports minimal PO intake over the weekend and no intake Mon-Tues. Therapy Recommendations: No evidence of aspiration or penetration. Good oral and pharyngeal clearance seen on imaging. Patient presented with maladaptive lingual pumping, delayed pharyngeal response, and other effortful behaviors, such as hunching forward and tucking chin. Otherwise, pharyngeal swallow appeared functional, with complete laryngeal elevation, adequate airway protection, complete laryngeal vestibular closure, and complete pharyngeal clearance, with no residual seen. Recommend continue workup with Neurology- Patient was recommended per Neurologist/Dr. Henry, to have Brain MRI, and workup to rule out cerebrovascular disease and myasthenia gravis. MANAGER BENCH will continue to follow for management of mild to moderate oral dysphagia with maladaptive behaviors and anxieties surrounding swallowing resulting in minimal oral intake. Treatment to target: -Education on swallow physiology and MBSS findings -Compensatory strategies (optimal upright 90 degree position, small bites/sips, slow pace, calm environment/minimize distractions at meal time, small portions more frequently throughout the day to encourage intake) -Daily monitoring (tx w/ MANAGER BENCH during meal time at least 1x daily) -Repeat-assessment for potential advancement of diet textures when appropriate. Patient expressed that ?the crackers were easier to swallow than liquid.? Patient remains fearful of swallowing hard solids, but is agreeable to trying a ground/mechanically altered diet, as it will still be soft and easy to chew, and moistened w/ sauces and gravies. Care Home Goals: ? The patient will tolerate the least restrictive diet with a safe/efficient swallow to maintain adequate nutrition and hydration. ? The patient and/or family will participate in further education for swallowing goals. Short Term Goals: ? Diet - The patient will tolerate a mechanical soft diet with thin liquids without signs or symptoms of penetration/aspiration 100% of the time. - The patient will participate in therapeutic PO trials with the MANAGER BENCH. ? Guidelines - The patient will comply with/recall the following guidelines/strategies 100% of the time with minimal cuing: Bolus Volume Change, Rate of Ingestion Change. ? Education - The patient will verbalize/demonstrate understanding of the results of this evaluation, the above recommendations, and the swallowing guidelines. Clinician - Supplemental, Miscellaneous Communication: It is important to note MBSS objective studies are snapshots in time and Patient function might vary with factors such as time of day or concomitant medical conditions. For this reason, the final treatment plan for this patient should rest with their medical care team. Additional recommendations should be considered with the totality of the Patient in mind. Thank for the opportunity to participate in the care of this patient. If you have any questions about the content of this report, please contact the [facility] at [facility]. Education: Education regarding findings from today's study and plans for therapy were provided to Patient only through Verbal Instruction. Understanding was expressed by the Patient only. Frequency/Duration: Daily while inpatient M-F Date Range for Service Req: Timeline to reassess: PRN Bill Sorter Clinican/Clinical Fellow: No Supervisory Statement: I have reviewed and agree with the student/clinical fellow's documentation: N/A Speech Language Pathologist: Maricruz Levi M.A., [facility]-MANAGER BENCH
--- NOTE | 2025-06-30 15:10 | MHC.CM.PN ---
PER HOSPITALIST, PT TO DC TODAY DAUGHTER WILL TRANSPORT AROUND 1800 HOURS
--- NOTE | 2025-06-30 15:13 | PM.IMHP ---
[facility] Medical History Acute prerenal azotemia Dysphagia DVT (deep venous thrombosis) Depression HTN (hypertension) Diabetes Surgical History Hx of hysterectomy History of esophagogastroduodenoscopy (EGD) Social History Household Members: Children Housing: House Are you a primary housekeeper caregiver to a significant other at home: No Do you presently have visiting nurse or other home services: No Alcohol intake: current Alcohol type: wine Comment: medicated Patient Tobacco Use Status: Never used Tobacco Smoked in Last 30 Days: No Use of substances other than those prescribed or required for medical reasons: No Currently Displaying Signs/Symptoms of Drug Intoxication Withdrawal: No Have you been hit, kicked, punched, or otherwise hurt by someone within the past year? If so, by whom?: No Do you feel safe in your current relationship?: No Current Relationship Is there a partner from a previous relationship who is making you feel unsafe now?: No Are you made to feel afraid or neglected: No Are you DNR?: No Advance Directives: No Advance Directives Information Provided: Yes Do you have a plan to hurt others: No Plan Recently lost weight without trying: No Nutrition Risks: No Nutritional Risk Patient : No : No Poor oral hygiene: No service: No Meds Allergies Allergy/AdvReac Type Severity Reaction Status Date / Time No Known Allergies Allergy Verified 06/24/25 14:16 Active Medications: Current Medications Baclofen (Baclofen 10 Mg Tablet) 10 mg PO TID [facility] Last Admin: 06/30/25 08:14 Dose: Not Given Dextrose (Dextrose 50 % 25 Gm/50 Ml Syringe) 25 gm IVPUSH Q15M PRN; Protocol PRN Reason: per Hypoglycemia Standing Ord. Glucose (Glucose Gel 15 Gm Gel..Gram.) 15 gm PO Q15M PRN; Protocol PRN Reason: per Hypoglycemia Standing Ord. Heparin Sodium (Porcine) (Heparin Sodium,Porcine 5,000 Unit/Ml Vial) 5,000 unit SUBCUT Q8H [facility] Last Admin: 06/30/25 07:48 Dose: 5,000 unit Hydralazine HCl (Hydralazine Hcl 20 Mg/Ml Vial) 5 mg IVPUSH Q4H PRN; Protocol PRN Reason: SBP>180 Hydrochlorothiazide (Hydrochlorothiazide 12.5 Mg Tablet) 12.5 mg PO DAILY [facility]; Protocol Last Admin: 06/30/25 08:15 Dose: Not Given Nutrition (Parenteral) (Parenteral Nutrition) 1,440 mls @ 60 mls/hr IV .Q24H [place]; Protocol Stop: 06/30/25 20:59 Last Admin: 06/29/25 20:49 Dose: 60 mls/hr Nutrition (Parenteral) (Parenteral Nutrition) 1,440 mls @ 60 mls/hr IV .Q24H [facility]; Protocol Stop: 07/01/25 20:59 Insulin Human Lispro (Insulin Lispro 100 Unit/Ml 3 Ml Vial) 0 unit SUBCUT QIDACHS [facility]; Protocol Last Admin: 06/30/25 11:41 Dose: Not Given Naloxone HCl (Naloxone Hcl 0.4 Mg/Ml Vial) 0.04 mg IVPUSH Q5M PRN PRN Reason: Excessive sedation or RR < 8 Ondansetron HCl (Ondansetron Hcl 4 Mg/2 Ml Vial) 4 mg IVPUSH Q6H PRN PRN Reason: Nausea and Vomiting Pharmacy Consult (Consult Rx Parenteral Nutrition Ordering) 1 each MISCELLANE DAILY PRN PRN Reason: Consult order Sodium Chloride (0.9 % Sodium Chloride Flush 3 Ml Syringe) [facility] Last Admin: 06/30/25 07:43 Dose: 3 ml Valsartan (Valsartan 160 Mg Tablet) 160 mg PO DAILY [facility]; Protocol Last Admin: 06/30/25 08:15 Dose: Not Given Home Medications ?Medication ?Instructions ?Recorded ?Confirmed ?Last Taken ?Type baclofen 5 mg tablet 5 mg PO TID 06/24/25 06/24/25 06/20/25 History cholecalciferol (vitamin D3) 25 25 mcg PO DAILY 06/24/25 06/24/25 06/20/25 History mcg (1,000 unit) tablet (Vitamin D3) empagliflozin 10 mg tablet 10 mg PO DAILY 06/24/25 06/24/25 06/20/25 History (Jardiance) hydrochlorothiazide 12.5 mg tablet 12.5 mg PO DAILY 06/24/25 06/24/25 06/20/25 History metoclopramide HCl 5 mg tablet 5 mg PO TID 06/24/25 06/24/25 06/20/25 History telmisartan 80 mg tablet 80 mg PO DAILY 06/24/25 06/24/25 06/20/25 History Physical Exam Vital Signs and Narrative: Vital Signs: Last Vital Signs Temp 97.1 F 06/30/25 11:35 Pulse 78 06/30/25 11:35 Resp 16 06/30/25 11:35 BP 169/78 H 06/30/25 11:35 Pulse Ox 98 06/30/25 11:35 O2 Del Method Room Air 06/30/25 11:35 BMI result Body Mass Index 19.6 Results Labs 06/29/25 05:30 06/30/25 05:58 Labs: Laboratory Results - last 24 hr 06/29/25 06/29/25 06/30/25 16:24 20:35 05:58 Hold Purple Top SEE NOTE Anion Gap 14 Estim Creat Clear Calc 46.8 Estimated GFR > 60 POC Glucose 94 169 H Random Glucose 178 H Calcium 9.1 Phosphorus 4.1 Magnesium 1.9 Total Bilirubin 0.4 AST 48 H ALT 43 H Alkaline Phosphatase 72 Total Protein 6.1 L Albumin 3.8 Triglycerides 152 H 06/30/25 06/30/25 07:13 11:28 Hold Purple Top Anion Gap Estim Creat Clear Calc Estimated GFR POC Glucose 160 H 142 H Random Glucose Calcium Phosphorus Magnesium Total Bilirubin AST ALT Alkaline Phosphatase Total Protein Albumin Triglycerides Quality Stroke Does the patient have a stroke diagnosis?: No VTE Prior VTE?: Yes VTE Risk Level:: Medical - moderate - high VTE Device Contraindication: Treatment Not Indicated VTE Drug Contraindication: N/A - Med Ordered
--- NOTE | 2025-06-30 15:14 | PM.DS ---
DS: Providers Provider Date of admission: 06/26/25 13:48 Date of discharge: 06/30/25 Primary care physician: Jef Noland NP Consults: 06/24/25 03:07 Consult to Gastroenterology Routine Consulting Provider: [facility] Gastroenterology Services Reason for consultation: Possible EGD for dysphagia 06/28/25 07:37 Consult to Neurology Routine Consulting Provider: [facility] Reason for consultation: dysphagia ? old strokes 06/29/25 14:30 Consult to Psychiatry Routine Consulting Provider: [facility] Psych Covering Reason for consultation: dysphagia Attending physician on discharge: Antonella Duff Discharging clinician: Trang Daley DS: Diagnosis Discharge Diagnosis (1) Dysphagia: Status: Acute DS: Summary Hospital Course Hospital Course: HP as per admitting provider. 74-year-old female with a history of dysphagia diagnosed in May 2023 after presenting to [facility] with similar symptoms, she presented today with acute worsening of swallowing difficulties. On Friday, she experienced a choking episode while drinking water, prompting an urgent appointment with her primary care physician later that afternoon. By the following day (Friday), she became unable to swallow both liquids and solids, including medications, and has not eaten since Friday afternoon. She reports using a chin tuck maneuver to swallow her saliva. Her dysphagia was previously thought to be esophageal in origin, though she is unsure. An endoscopy was performed in May 2023 ([facility], GI Dr. Costello). Metoclopramide (Reglan) and baclofen were prescribed by her primary care physician on Friday for symptom management, but she has not been able to take them. Before Friday, the patient reported tolerating a regular diet without any issues. She denies pain with swallowing except for transient discomfort after choking episodes. She also denies coughing with eating, metallic taste, burning in the esophagus, nausea, vomiting, dry mouth, or breathing problems. ED course: Diazepam 5 Mg IV and Reglan 10 mg IV x 1 dose Vital signs: stable, afebrile Diagnostic studies: Serum creatinine 1.44, BUN 34, anion gap 22, bicarb 15, potassium 4.8, sodium 141, calcium 9.6, magnesium 2.1, glucose 70. CBC within normal limits. Respiratory panel negative. Discharge summary from [facility] 05/2023 reviewed: EGD: Normal esophageal pathology. Mild gastritis, duodenal ulcer COMORBID CONDITIONS: Dysphagia, Hypertension, type 2 diabetes mellitus, depression, history of DVT in adulthood MEDICATIONS: - Jardiance 10 mg daily, Telmisartan 80 mg daily (Prescribed on 06/20/25: metoclopramide (Reglan) and baclofen) SOCIAL HISTORY: - No cigarette use - Occasional alcohol use (a glass of wine with dinner) Dysphagia last episode 2022, no obvious pathology found. gradually improved on its own. Seen by GI and had EGD on 06/24, no other pathology was detected. 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 She was seen by neurology and had brain MRI which was negative for stroke. CPK and TSH also wnl. myasthenia gravis antibody titers pending at the time of discharge. No further neurologic work up recommended inpatient. Seen by psych who felt that antidepressant or anxiolytic meds may be use for symptoms. she was briefly startedon ppn, but patient would prefer to go home as she feels she would be more comfortable there and can work on increasing her po intake as she did previously in 2022. she we will be discharged home with short course of oral Ativan to assist with any component of anxiety, it was discussed with her that her primary care provider may not want to continue this medication and maybe beneficial to resume an antidepressant medication as she had previously been on one in the past. plan was discussed with her daughter over the phone and requested that glucometer be sent for blood sugar monitoring and is in agreement with discharge plan. Patient has been in touch with her PCP office and will set up follow up appointment as early as possible. EVA resolved with IVF Hyg-[id number] type 2 diabetes. Treated with sliding scale, continue home medications as tolerated. will send glucometer to monitor blood sugar. no episodes of hypoglycemia inpatient Hypertension Continue baseline meds Time Attestation Discharge Coordination Time (in mins): 36 Quality: Safe Use of Opioids Does Pt have an Active Cancer Diagnosis on the Problem List?: No Quality: Stroke Does the patient have a stroke diagnosis?: No Physical Exam Vital Signs: Vital Signs: Last Vital Signs Temp 97.1 F 06/30/25 11:35 Pulse 78 06/30/25 11:35 Resp 16 06/30/25 11:35 BP 169/78 H 06/30/25 11:35 Pulse Ox 98 06/30/25 11:35 O2 Del Method Room Air 06/30/25 11:35 BMI result Body Mass Index 19.6 Const: General: cooperative, comfortable, no acute distress, alert and awake Nutritional Appearance: average body habitus Orientation/consciousness: patient oriented x3 Resp: Effort & Inspection: normal respiratory effort, able to speak in complete sentences, no respiratory distress and no use of accessory muscles Cardio: Rate: regular rate GI: Palpation (GI): Soft to palpation Neuro: Other: grossly nonfocal General: patient oriented x3, moves all extremities and CN's II-XI intact bilaterally DS: Data Data Completed and Pending Completed studies during hospitalization [Text1]: Pending at discharge 06/24/25 15:05 Surgical [PTH] Routine Labs on day of discharge: Laboratory Results - last 24 hr 06/29/25 06/29/25 06/30/25 16:24 20:35 05:58 Hold Purple Top SEE NOTE Sodium 140 Potassium 4.0 Chloride 107 Carbon Dioxide 23 Anion Gap 14 BUN 24 H Creatinine 0.85 Estim Creat Clear Calc 46.8 Estimated GFR > 60 POC Glucose 94 169 H Random Glucose 178 H Calcium 9.1 Phosphorus 4.1 Magnesium 1.9 Total Bilirubin 0.4 AST 48 H ALT 43 H Alkaline Phosphatase 72 Total Protein 6.1 L Albumin 3.8 Triglycerides 152 H 06/30/25 06/30/25 07:13 11:28 Hold Purple Top Sodium Potassium Chloride Carbon Dioxide Anion Gap BUN Creatinine Estim Creat Clear Calc Estimated GFR POC Glucose 160 H 142 H Random Glucose Calcium Phosphorus Magnesium Total Bilirubin AST ALT Alkaline Phosphatase Total Protein Albumin Triglycerides Discharge Plan Discharge Anticipated Discharge Date/Time: 06/30/25 15:29 Patient Disposition: Home, Self-Care Discharge Diagnosis: Dysphagia Referrals: Jef Noland NP [Primary Care Provider, Internal Medicine] - 1 Week Discharge Medications: New (DME) FreeStyle Lite Strips Strip Qty: 100 0RF Rx Instructions: Test four times a day or as directed. (DME) blood-glucose meter [FreeStyle Lite Meter] Kit Qty: 1 0RF Rx Instructions: As Directed alcohol swabs Pads, Medicated 1 pad TOPICAL QIDACHS Qty: 100 0RF Rx Instructions: Use four times a day or as directed. (DME) lancets [FreeStyle Lancets] 28 gauge misc Qty: 100 0RF Rx Instructions: Test four times a day or as directed. lorazepam [Ativan] 0.5 mg tablet 0.5 mg PO Q8H PRN (Reason: anxiety) Qty: 10 0RF Continued metoclopramide HCl 5 mg tablet 5 mg PO TID telmisartan 80 mg tablet 80 mg PO DAILY hydrochlorothiazide 12.5 mg tablet 12.5 mg PO DAILY Jardiance 10 mg tablet 10 mg PO DAILY baclofen 5 mg tablet 5 mg PO TID cholecalciferol (vitamin D3) [Vitamin D3] 25 mcg (1,000 unit) Tablet 25 mcg PO DAILY Discharge Orders: Discharge Order (Routine); Ordered 06/30/25 Ordered By: Trang Daley Diet: Advance to usual diet Activity on Discharge: As tolerated Stand Alone Forms: Patient Portal Discharge page Print Language: Georgian Care Plan Goals: Continue techniques/modifications for swallowing Health Concerns: Dysphagia myasthenia gravis antibodies pending at the time of discharge Plan of Treatment: Follow up with primary care provider pills crushed short term trial of ativan - can cause sedation, risk of falls. do not drive while taking ativan can consider outpatient speech therapy Assessment: See discharge summary
[2025-06-30 15:40] VITALS: BP 147/67; PULSE 77; RESP 18; TEMP 36.7; O2SAT 97
[2025-06-30 16:21] LABS: Glucose, Whole Blood 190 mg/dL (60-115)
[2025-07-03 07:54] LABS: Acetylcholine Recept. Blocking <15 (<15)
== END 2025-06-30 17:53 | disposition home or self-care (01) | DRG 392 ==
LOC: HO.ED 06-24 02:19 → HO.EDOVER 06-24 03:07 → HO.S3 06-24 07:29
PROVIDERS: Internal Medicine; Internal Medicine Gastroenterology; Nurse Practitioner Acute Care; Physician Assistant; Student in an Organized Health Care Education/Training Program; Admitting Provider Family Medicine; Emergency Provider Emergency Medicine; PCP Nurse Practitioner Family; Visit Provider Physician Assistant Medical
PROC: 0DJ08ZZ Inspection of Upper Intestinal Tract, Via Natural or Artificial Opening Endoscopic (ICD-10-PCS; CPT 43235; principal; 2025-06-24 15:10)
DX: R13.10 Dysphagia, unspecified (principal); N17.9 Acute kidney failure, unspecified; K22.4 Dyskinesia of esophagus; G70.00 Myasthenia gravis without (acute) exacerbation; E86.0 Dehydration; Z66 Do not resuscitate; E11.9 Type 2 diabetes mellitus without complications; I10 Essential (primary) hypertension; Z20.822 Contact with and (suspected) exposure to COVID-19; Z86.718 Personal history of other venous thrombosis and embolism; Z79.899 Other long term (current) drug therapy
CPT/HCPCS: 36415; 70450; 70491; 70551; 74230; 80048; 80053; 81001; 82040; 82550; 82803; 82947; 83036; 83605; 83735; 84100; 84443; 84478; 85025; 86041; 86042; 86043; 87637; 88305; 88313; 88342; 92526; 92610; 92611; 97161; 99221; 99285; C1726; J0131; J1644; J2003; J2470; J2704; J2765; J2919; J3360; J7120; Q9967

== ENCOUNTER → 2025-06-24 02:52 | Outpatient (BNV) | payer MEDICARE, SELFPAY | PROVIDERS: Admitting Provider Family Medicine; Emergency Provider Emergency Medicine; PCP Nurse Practitioner Family; Visit Provider Internal Medicine Gastroenterology | DX: R13.10 Dysphagia, unspecified (principal) | CPT/HCPCS: 43249 ==

== ENCOUNTER → 2025-06-24 02:52 | Outpatient (BNV) | payer MEDICARE, SELFPAY | PROVIDERS: Admitting Provider Family Medicine; Emergency Provider Emergency Medicine; PCP Nurse Practitioner Family; Visit Provider Family Medicine | DX: R13.10 Dysphagia, unspecified (principal); N19 Unspecified kidney failure | CPT/HCPCS: 99232 ==

== ENCOUNTER → 2025-06-25 10:26 | Outpatient (BNV) | payer MEDICARE, SELFPAY | PROVIDERS: Admitting Provider Family Medicine; Emergency Provider Emergency Medicine; PCP Nurse Practitioner Family; Visit Provider Radiology Diagnostic Radiology | DX: R13.10 Dysphagia, unspecified (principal); R22.1 Localized swelling, mass and lump, neck | CPT/HCPCS: 70491 ==

== ENCOUNTER 2025-06-26 13:48 | Outpatient (BNV) | payer MEDICARE, SELFPAY | END 2025-06-29 08:46 | PROVIDERS: Admitting Provider Family Medicine; Emergency Provider Emergency Medicine; PCP Nurse Practitioner Family; Visit Provider Radiology Diagnostic Radiology | DX: I67.82 Cerebral ischemia (principal) | CPT/HCPCS: 70551 ==

== ENCOUNTER 2025-06-26 13:48 | Outpatient (BNV) | payer MEDICARE, SELFPAY | END 2025-06-27 15:30 | PROVIDERS: Admitting Provider Family Medicine; Emergency Provider Emergency Medicine; PCP Nurse Practitioner Family; Visit Provider Radiology Diagnostic Radiology | DX: G31.9 Degenerative disease of nervous system, unspecified (principal) | CPT/HCPCS: 70450 ==

== ENCOUNTER 2025-06-26 13:48 | Outpatient (BNV) | payer MEDICARE, SELFPAY | END 2025-06-28 10:30 | PROVIDERS: Admitting Provider Family Medicine; Emergency Provider Emergency Medicine; PCP Nurse Practitioner Family; Visit Provider Radiology Diagnostic Ultrasound | DX: R13.10 Dysphagia, unspecified (principal) | CPT/HCPCS: 74230 ==

== ENCOUNTER → 2025-06-26 13:48 | Outpatient (BNV) | payer MEDICARE, SELFPAY | PROVIDERS: Admitting Provider Family Medicine; Emergency Provider Emergency Medicine; PCP Nurse Practitioner Family; Visit Provider Psychiatry & Neurology Neurology | DX: R13.10 Dysphagia, unspecified (principal) | CPT/HCPCS: 99223 ==

== ENCOUNTER → 2025-06-26 13:48 | Outpatient (BNV) | payer MEDICARE, SELFPAY | PROVIDERS: Admitting Provider Family Medicine; Emergency Provider Emergency Medicine; PCP Nurse Practitioner Family; Visit Provider Nurse Practitioner Family | DX: F33.0 Major depressive disorder, recurrent, mild (principal); R13.10 Dysphagia, unspecified | CPT/HCPCS: 99222 ==

== ENCOUNTER 2025-07-04 08:30 | Observation (INO) | payer MEDICARE, SELFPAY ==
[2025-07-04 08:32] VITALS: BP 141/63; PULSE 103; RESP 16; TEMP 36.7; O2SAT 99; BMI 21.6
--- NOTE | 2025-07-04 08:40 | ED.GENADULT ---
HPI - General Adult General Chief complaint: General Medical Stated complaint: low sugar Time Seen by Provider: 07/04/25 08:40 Source: patient, family, RN notes reviewed and old records reviewed Mode of arrival: ambulatory History of Present Illness ED Provider: Belle Juarez PA-C HPI narrative: 74-year-old female with a past medical history of dysphagia, diabetes, HTN, recently discharged from our facility on 06/30/2025 for dysphagia /EVA presenting to the ED today with inability to tolerate p.o. since ED discharge. States she has been unable to follow up with PCP due to and PCPs family. States she has been unable to tolerate liquids or solids, and glucose was 63 this morning. Admits to putting honey in her mouth last night and this morning to aid with sugar. denies pain, sore throat, abdominal pain, nausea/ vomiting, fever Related Data Home Medications ?Medication ?Instructions ?Recorded ?Confirmed baclofen 5 mg tablet 5 mg PO TID 06/24/25 06/24/25 cholecalciferol (vitamin D3) 25 25 mcg PO DAILY 06/24/25 06/24/25 mcg (1,000 unit) tablet (Vitamin D3) empagliflozin 10 mg tablet 10 mg PO DAILY 06/24/25 06/24/25 (Jardiance) hydrochlorothiazide 12.5 mg tablet 12.5 mg PO DAILY 06/24/25 06/24/25 metoclopramide HCl 5 mg tablet 5 mg PO TID 06/24/25 06/24/25 telmisartan 80 mg tablet 80 mg PO DAILY 06/24/25 06/24/25 Previous Rx's ?Medication ?Instructions ?Recorded alcohol swabs 1 pad topical QIDACHS #100 ea 06/30/25 blood sugar diagnostic (FreeStyle #100 ea 06/30/25 Lite Strips) blood-glucose meter (FreeStyle #1 ea 06/30/25 Lite Meter kit) lancets 28 gauge (FreeStyle #100 ea 06/30/25 Lancets) lorazepam 0.5 mg tablet (Ativan) 0.5 mg PO Q8H PRN anxiety #10 tabs 06/30/25 Allergies Allergy/AdvReac Type Severity Reaction Status Date / Time No Known Allergies Allergy Verified 07/04/25 08:37 Review of Systems Review of Systems: Yes all other systems are reviewed and are negative Constitutional: Constitutional: Reports as per [facility] Past Medical History Attestation statement: The following information was validated with the patient. Source: old records reviewed Medical History Acute prerenal azotemia Dysphagia DVT (deep venous thrombosis) Depression HTN (hypertension) Diabetes Surgical History Hx of hysterectomy History of esophagogastroduodenoscopy (EGD) Social History Social History Household Members: Children Housing: House Are you a primary life care planner to a significant other at home: No Do you presently have visiting nurse or other home services: No Alcohol intake: current Alcohol intake frequency: does not drink Alcohol type: wine Comment: medicated Patient Tobacco Use Status: Never used Tobacco Smoked in Last 30 Days: No Use of substances other than those prescribed or required for medical reasons: No Advance Directives: Yes Advance Directives on File: Yes Advance Directives Date on File: 07/01/25 service: No Physical Exam ED Vital Signs: Vital Signs - 24 hr 07/04/25 08:32 07/04/25 09:08 Temperature 98.0 F Pulse Rate 103 H 93 Respiratory Rate 16 16 Blood Pressure 141/63 H 145/72 H Pulse Oximetry 99 96 Oxygen Delivery Method Room Air Room Air BMI result Body Mass Index 21.6 Const General: cooperative, healthy appearing and no acute distress Orientation/consciousness: patient oriented x3 Limitations: no limitations [facility] Head: Yes normal to inspection and Yes atraumatic Ears: hearing grossly normal bilaterally General nose exam: Normal external nose present Face and sinus: Yes normal facial exam Mouth: Abnormal oral and palatal mucosa present (dry) Eyes General: appearance normal, both eyes and all related structures EOM: EOMs intact bilaterally Neck Neck: Yes normal visual inspection and Yes no meningeal signs Resp Effort & Inspection: normal respiratory effort and no respiratory distress Auscultation: clear to auscultation bilaterally, no crackles and no wheezes Cardio Rate: regular rate Heart sounds: S1 normal heart sound present and S2 normal heart sound present GI Inspection: Yes normal to inspection Palpation (GI): Soft to palpation, nontender, no guarding and not rigid Skin Rashes: no rashes Wounds: no wounds Neuro General: patient oriented x3, tone normal and no meningeal signs Cranial nerves: Yes CN's II-XII intact bilaterally Gait exam (Neuro): Normal gait present Extrem General: Yes normal to inspection Course Course Course Narrative: 10:32 AM 07/04/2025 (Belle Juarez PA-C): notable for anion gap of 23 likely from starvation ketosis and BUN of 27. Plan to admit for further management. Case discussed with hospitalist Medications Administered Discontinued Medications Generic Name Dose Route Start Last Admin Trade Name Freq PRN Reason Stop Dose Admin Sodium Chloride 1,000 mls @ 999 mls/hr 07/04/25 09:00 07/04/25 10:18 Ns IV 07/04/25 10:00 Infused .Q1H1M [place] Infusion Medical Decision Making Medical Decision Making [facility] Narrative: 74-year-old female with a past medical history of dysphagia, diabetes, HTN, recently discharged from our facility on 06/30/2025 for dysphagia /EVA presenting to the ED today with inability to tolerate p.o. since ED discharge. on exam vital signs stable, NAD, nontoxic. , dry mucous membranes. Concern for hypoglycemia/metabolic abnormalities including dehydration. Lower suspicion for infectious etiology. Prior workup during admission without obvious abnormality, myasthenia gravis labs currently pending Plan: Labs, UA, IVF, anticipated admission Please refer to course for remaining clinical decision making, interpretation of labs/imaging results, and discussions with consultants and/or family members. Differential Diagnosis Differential Diagnoses: The differential diagnosis associated with the presentation includes As above Admission/Observation Consideration of admission/observation: Escalation of care including admission/observation considered Consult Healthcare Provider Management of the patient was discussed with: Hospitalist Lab Data [facility] Lab Attestation statement: I reviewed the patient's lab results. 07/04/25 09:07 07/04/25 09:07 Labs: Lab Results 07/04/25 07/04/25 Range/Units 09:00 09:07 WBC 5.6 (4.8-10.8) X10*3/uL RBC 4.03 L (4.20-5.50) X10*6/uL Hgb 12.8 (12.0-16.0) g/dl Hct 39.2 (37.0-47.0) % MCV 97.3 D (80.0-98.0) fL MCH 31.8 (27.0-33.0) pg MCHC 32.7 (31.0-35.0) g/dl RDW 13.0 (11.0-16.0) % Plt Count 330 (160-400) X10*3/uL MPV 9.7 (9.4-12.3) fL Immature Gran % (Auto) 0.4 (0.0-0.4) % Neut % (Auto) 68.9 (45-73) % Lymph % (Auto) 18.2 L (20-40) % [place] % (Auto) 9.2 (2-11) % Eos % (Auto) 2.9 (0-4) % Baso % (Auto) 0.4 (0-2) % Lymph # (Auto) 1.0 L (1.2-4.9) X10*3/uL [place] # (Auto) 0.5 (0.1-1.2) X10*3/uL Eos # (Auto) 0.2 (0.0-0.4) X10*3/uL Baso # (Auto) 0.0 (0.0-0.2) X10*3/uL Abs Immat Gran (auto) 0.02 (0.00-0.03) X10*3/uL Absolute Neuts (auto) 3.8 (2.0-8.3) x10*3/uL Absolute Nucleated RBC 0.000 (0.0-0.012) X10*3/uL Nucleated RBC % (auto) 0.0 (0.0-0.2) /100WBC Sodium 146 H (135-145) mmol/L Potassium 4.5 (3.3-5.1) mmol/L Chloride 110 H (96-108) mmol/L Carbon Dioxide 18 L (22-29) mmol/L Anion Gap 23 H (12-20) BUN 27 H (9-16) mg/dL Creatinine 1.15 (0.5-1.4) mg/dL Estim Creat Clear Calc 36.5 Estimated GFR 46 POC Glucose 75 (60-115) mg/dL Random Glucose 75 (60-115) mg/dL Calcium 10.1 D (8.4-10.2) mg/dL Magnesium 1.9 (1.6-2.6) mg/dL Total Bilirubin 0.9 (0.0-1.0) mg/dL Direct Bilirubin 0.4 (0.0-0.5) mg/dL AST 37 H (5-31) U/L ALT 39 H (0-31) U/L Alkaline Phosphatase 76 (39-117) U/L Total Protein 6.8 (6.5-8.0) g/dL Albumin 4.4 (3.5-5.0) g/dL Radiology Impression Discussion of test interpretation with radiology: I have reviewed the radiologist's reading. Independent Historian Clinical information obtained from an independent historian. History obtained from or confirmed by: Other ( daughter) External Record Review External record reviewed: Inpatient record, Office record, Outpatient record, Prior outpatient labs, Prior outpatient radiology, Primary care record and Outside ED record Tests considered The following testing was considered but not selected: As above Prescription Management I considered prescription management with: Other Chronic Conditions Patient?s care impacted by: Diabetes and Other Social Determinants Patient?s care significantly limited by Social Determinants of Health including: Other Social Determinant of Health Discharge Plan Discharge Clinical Impression: Dehydration Dysphagia Qualifiers: Dysphagia type: unspecified Qualified Code(s): R13.10 - Dysphagia, unspecified Patient Disposition: Admitted As Inpatient Print Language: Vietnamese
[2025-07-04 09:02] LABS: Glucose, Whole Blood 75 mg/dL (60-115)
[2025-07-04 09:08] VITALS: BP 145/72; PULSE 93; RESP 16; O2SAT 96
[2025-07-04 09:17] LABS: MANUAL DIFF FLAG NO
[2025-07-04 09:18] LABS: Hematocrit 39.2 % (37.0-47.0); Hemoglobin 12.8 g/dl (12.0-16.0); Imm Gran Abs Auto 0.02 X10*3/uL (0.00-0.03); Imm Gran Pct Auto 0.4 % (0.0-0.4); Lymphocytes Absolute Auto 1.0 X10*3/uL (1.2-4.9); Mean Corpuscular HGB Conc 32.7 g/dl (31.0-35.0); Mean Corpuscular Hemoglobin 31.8 pg (27.0-33.0); Mean Corpuscular Volume 97.3 fL (80.0-98.0); NRBC Abs Auto 0.000 X10*3/uL (0.0-0.012); NRBC Pct Auto 0.0 /100WBC (0.0-0.2); Platelet Count 330 X10*3/uL (160-400); Red Blood Count 4.03 X10*6/uL (4.20-5.50); White Blood Count 5.6 X10*3/uL (4.8-10.8)
--- NOTE | 2025-07-04 09:21 | PC.NURSE ---
IV established/labs sent. NS bolus started. Pt reports difficulty swallowing for approx 3 weeks.. Admitted for same approx 1 week ago and states sx are unchanged with inability to tolerate PO meds or intake. Neuros appear intact. Daughter at bedside. NSR on tele. Breathing even/unlabored. POC 74 while here in ED. Request ice chips, Belle lee, given/tolerating
--- OUTSIDE RECORDS SUMMARY | 2025-07-04 09:48 | XMS_ITS | Encounter Summary ---
Author Organization [facility] Address [address] [place] [address] Care Team Providers Care Field Associate Name Role Phone Jef Noland Primary Care Provider [phone] Reason for Visit * Reason Onset Date Comments Appointment 06/30/2025 Encounter Details Date Type Department Care Team ([facility] st Contact Info) Description 06/30/2025 Telephone Gastroenterology - [address] [facility] [address] [place] [id number] Hussein Ernst MD [address] [facility] [address] [place] [address] Social History Tobacco Use Types Packs/Day Years Used Date Smoking Tobacco: Never Assessed Comments Unknown Sex and Gender Information Value Date Recorded Sex Assigned at Not on file Legal Sex Female 8:33 AM EST Gender Identity Not on file Sexual Orientation Not on file documented as of this encounter Progress Notes * Maricruz Dove - 06/30/2025 8:54 AM EST Received records from [facility] primary care for a consult for chronic for chronic dysphagia and worsening. Referral scanned into media. LVMTCB and schedule appointment. Consult form filled out and placed into call bin. documented in this encounter Plan of Treatment Not on file documented as of this encounter Visit Diagnoses Not on filedocumented in this encounter Care Teams Field Associate Relationship Specialty Start Date End Date Jef Noland FNP [address] [facility] [address] [place] [id number] PCP - General Nurse Practitioner 06/30/25 documented as of this encounter
--- OUTSIDE RECORDS SUMMARY | 2025-07-04 09:48 | XMS_ITS | Clinical Summary ---
Author Organization [facility] [address] [facility] Address [address] [place] [address] Phone Care Team Providers Care Box Person Name Role Phone Jef Noland KATHERINE Primary Care Provider Encounters Date Type Department Care Team Description 06/30/2025 Telephone Gastroenterology - [address] [phone] Hussein Ernst MD from Last 3 Months Social History Tobacco Use Types Packs/Day Years Used Date Smoking Tobacco: Never Assessed Comments Unknown Sex and Gender Information Value Date Recorded Sex Assigned at Not on file Legal Sex Female 8:33 AM EST Gender Identity Not on file Sexual Orientation Not on file Plan of Treatment Health Maintenance Due Date Last Done Comments Colorectal Cancer Screening: Colonoscopy 1950 DTaP,Tdap,and Td Vaccines (1 - Tdap) 1968 Pneumococcal Vaccine: 50+ Ye ars (1 of 1 - PCV) 10/04/1999 Zoster Vaccines (1 of 2) 10/04/1999 Depression Screening 07/14/2024 RSV Immunization Adult Patie nts (1 - 1-dose 75+ series) 2024 COVID-19 Vaccine ( - 2024-2 6 season) 2025 Influenza Vaccine (#1) 2025 Falls Risk Assessment 06/30/2025 Hepatitis C Screening 06/30/2025 Osteoporosis Screening (Bone Density Screening) 06/30/2025 Social Influencers of Health Screening 06/30/2025 HIB Vaccines Aged Out No longer eligi ble based on patient's age to complete this topic HPV Vaccines Aged Out No longer eligi ble based on patient's age to complete this topic Hepatitis A Vaccines Aged Out No long er eligible based on patient's age to complete this topic Hepatitis B Vaccines Aged Out No long er eligible based on patient's age to complete this topic IPV Vaccines Aged Out No longer eligi ble based on patient's age to complete this topic MMR Vaccines Aged Out No longer eligi ble based on patient's age to complete this topic Meningococcal ACWY Vaccine Aged Out N o longer eligible based on patient's age to complete this topic Meningococcal B Vaccine Aged Out No l onger eligible based on patient's age to complete this topic RSV Immunization Patients Un jaky 20 months Aged Out No longer eligible b ased on patient's age to complete this topic Varicella Vaccines Aged Out No longer eligible based on patient's age to complete this topic Insurance [facility] Care Teams Box Person Relationship Specialty Start Date End Date Jef Noland FNP [address] [place] [address] [place] [id number] PCP - General Nurse Practitioner 06/30/25
[2025-07-04 09:53] LABS: Alanine Aminotransferase 39 U/L (0-31); Albumin Level 4.4 g/dL (3.5-5.0); Alkaline Phosphatase 76 U/L (39-117); Anion Gap 23 (12-20); Aspartate Amino Transferase 37 U/L (5-31); Blood Urea Nitrogen 27 mg/dL (9-16); Calcium 10.1 mg/dL (8.4-10.2); Carbon Dioxide 18 mmol/L (22-29); Chloride 110 mmol/L (96-108); Creatinine Clr Calc Pharmacy 36.5; Estimated Glomerular Filt Rate 46; Magnesium 1.9 mg/dL (1.6-2.6); Potassium 4.5 mmol/L (3.3-5.1); Sodium 146 mmol/L (135-145); Total Protein 6.8 g/dL (6.5-8.0)
[2025-07-04 11:17] VITALS: BP 166/78; PULSE 110; RESP 18; O2SAT 99
[2025-07-04 11:24] LABS: Appearance Urine Clear; Glucose Urine UA Negative (Negative); PH 5.0 (5.0-9.0); Specific Gravity - Urine 1.020 (1.005-1.025); UMIC TRIGGER UACC YES
--- NOTE | 2025-07-04 11:27 | PHA.MEDREC ---
Addendum entered by Sanjiv Baron RPh 07/04/25 11:46: reviewed by [facility] Original Note: Pharmacy Consult ? Medication Reconciliation Pharmacy has completed the medication reconciliation. Spoke with pt and pt daughter at bedside and pt was able to confirm medications. Pt confirmed she was just prescribed Lorazepam 0.5mg tabs Q8H PRN anxiety, tried taking it 06/30, but pt has not been able to swallow or successfully take any of her medications since 06/20; Kept Lorazepam on pt med rec due to pt having a lot of Anxiety at this time and wanting to take it here if possible.
[2025-07-04 11:39] LABS: UACC Culture Trigger YES
--- NOTE | 2025-07-04 12:17 | PM.IMHP ---
History of Present Illness Date of Service: 07/04/25 Chief Complaint: Swallowing difficulty 74-year-old female recently admitted to [facility] from 06/23 through with worsening swallow difficulties. During the hospitalization patient underwent extensive testing she was seen by Dr. Araujo had EGD done on 06/24 which showed mildly tortuous esophagus without stricture or ring and no food bolus seen in the esophagus or stomach. A balloon dilatation was performed in the proximal and distal esophagus. Soft tissue neck CT on 06/25 showed no mass, pathologic lymphadenopathy, or abdominal fluid collection. Patient also had a head and neck CT which revealed [id number] generalized atrophy and periventricular hypodensities likely related to small-vessel angiopathy. There were also likely small lacunar infarction, involving the left anterior and posterior limbs of the internal capsule. Patient was seen by Neurology they recommended MRI brain that showed no abnormality. Acetyl choline receptor blocking and binding antibodies negative, acetyl choline receptor modulating Ab pend.TSH was 1.62, CPK 51. Today patient presented to [facility] due to inability to tolerate diet, unable to take home medications, has been choking on saliva only during daytime, has been sleeping well all night, denies epigastric pain no nausea, no vomiting, daughter has been checking blood sugars and noted to have blood sugars in mid 60s. Due to concern for decreased by mouth intake low blood sugars patient came to ER for re-evaluation. In ED noted to have mild hypernatremia sodium 116, chloride 110, anion gap 23. UA no bacteria. Patient denies URI symptoms. Received 1 L of IV fluid in the ED. Review of Systems Review of Systems: General no headache, no dizziness no fever chills. CVS no chest pain, no palpitation. Respiratory no cough , no respiratory distress. Gastrointestinal no nausea no vomiting, no abdominal pain. no urgency no frequency All other system reviewed and are negative. [facility] Medical History Acute prerenal azotemia Dysphagia DVT (deep venous thrombosis) Depression HTN (hypertension) Diabetes Surgical History Hx of hysterectomy History of esophagogastroduodenoscopy (EGD) Social History Household Members: Children Housing: House Are you a primary care manager to a significant other at home: No Do you presently have visiting nurse or other home services: No Alcohol intake: current Alcohol intake frequency: does not drink Alcohol type: wine Comment: medicated Patient Tobacco Use Status: Never used Tobacco Advance Directives Date on File: 07/01/25 service: No Meds Allergies Allergy/AdvReac Type Severity Reaction Status Date / Time No Known Allergies Allergy Verified 07/04/25 08:37 Active Medications: Current Medications Acetaminophen (Acetaminophen 325 Mg Tablet) 650 mg PO Q6H PRN PRN Reason: Pain, Mild 1-3,fever,headache Acetaminophen (Acetaminophen Supp 650 Mg Supp.Rect) 650 mg OR Q6H PRN PRN Reason: Fever >100.4 Calcium Carbonate (Calcium Carbonate 750 Mg Tab.Chew) 750 mg PO Q4H PRN PRN Reason: Heartburn Dextrose (Dextrose 50 % 25 Gm/50 Ml Syringe) 25 gm IVPUSH Q15M PRN; Protocol PRN Reason: per Hypoglycemia Standing Ord. Glucose (Glucose Gel 15 Gm Gel..Gram.) 15 gm PO Q15M PRN; Protocol PRN Reason: per Hypoglycemia Standing Ord. Heparin Sodium (Porcine) (Heparin Sodium,Porcine 5,000 Unit/Ml Vial) 5,000 unit SUBCUT Q12H [place] Lactated Ringer's (Lr) 1,000 mls @ 100 mls/hr IVCONT .Q10H [place] Insulin Human Lispro (Insulin Lispro 100 Unit/Ml 3 Ml Vial) 0 unit SUBCUT QIDACHS [facility]; Protocol Magnesium Hydroxide (Milk Of Magnesia 30 Ml Oral.Susp) 30 ml PO DAILY PRN PRN Reason: Constipation Melatonin (Melatonin 3 Mg Tablet) 6 mg PO BEDTIME PRN PRN Reason: Insomnia Ondansetron HCl (Ondansetron Hcl 4 Mg/2 Ml Vial) 4 mg IVPUSH Q8H PRN PRN Reason: Nausea Sodium Chloride (0.9 % Sodium Chloride Flush 3 Ml Syringe) 3 ml IVFLUSH QSHIFT [facility] Home Medications ?Medication ?Instructions ?Recorded ?Confirmed ?Last Taken ?Type baclofen 5 mg tablet 5 mg PO TID 06/24/25 07/04/25 06/20/25 History cholecalciferol (vitamin D3) 25 25 mcg PO DAILY 12/07/0707/04/25 06/20/25 History mcg (1,000 unit) tablet (Vitamin D3) empagliflozin 10 mg tablet 10 mg PO DAILY 06/24/25 07/04/25 06/20/25 History (Jardiance) hydrochlorothiazide 12.5 mg tablet 12.5 mg PO DAILY 06/24/25 07/04/25 06/20/25 History metoclopramide HCl 5 mg tablet 5 mg PO TID 06/24/25 07/04/25 06/20/25 History telmisartan 80 mg tablet 80 mg PO DAILY 06/24/25 07/04/25 06/20/25 History Physical Exam Vital Signs and Narrative: Vital Signs: Last Vital Signs Temp 98.0 F 07/04/25 08:32 Pulse 110 H 07/04/25 11:17 Resp 18 07/04/25 11:17 BP 166/78 H 07/04/25 11:17 Pulse Ox 99 07/04/25 11:17 O2 Del Method Room Air 07/04/25 11:17 BMI result Body Mass Index 21.6 Const: Other: General: AOx3, no acute distress Neck supple, no JVD HEENT: PERRLA,EOMI Resp: CTA bilaterally CVS: S1, S2, RRR GI: +BS, NT, no distention Skin: Warm, dry Neuro: Cranial nerves II-XII grossly intact bilaterally. Motor grossly intact bilaterally, normal sensations. Extremities: No edema Psych: Appropriate affect Results Labs 07/04/25 09:07 07/05/25 05:34 Labs: Laboratory Results - last 24 hr 07/04/25 07/04/25 07/04/25 09:00 09:07 11:13 MCV 97.3 D MCH 31.8 MCHC 32.7 RDW 13.0 Plt Count 330 MPV 9.7 Immature Gran % (Auto) 0.4 Neut % (Auto) 68.9 Lymph % (Auto) 18.2 L [place] % (Auto) 9.2 Eos % (Auto) 2.9 Baso % (Auto) 0.4 Lymph # (Auto) 1.0 L [place] # (Auto) 0.5 Eos # (Auto) 0.2 Baso # (Auto) 0.0 Abs Immat Gran (auto) 0.02 Absolute Neuts (auto) 3.8 Absolute Nucleated RBC 0.000 Nucleated RBC % (auto) 0.0 Anion Gap 23 H Estim Creat Clear Calc 36.5 Estimated GFR 46 POC Glucose 75 Random Glucose 75 Calcium 10.1 D Magnesium 1.9 Total Bilirubin 0.9 Direct Bilirubin 0.4 AST 37 H ALT 39 H Alkaline Phosphatase 76 Total Protein 6.8 Albumin 4.4 Urine Color Yellow Urine Appearance Clear Urine pH 5.0 Ur Specific [place] 1.020 Urine Protein Trace Urine Glucose (UA) Negative Urine Ketones 80 Urine Blood Negative Urine Nitrite Negative Ur Leukocyte Esterase Small (1+) H Urine RBC 0-2 Urine WBC 6-10 H Ur Squamous Epith Cells 3-5 Urine Bacteria None Seen Hyaline Casts 6-10 Assessment and Plan (1) Dysphagia: Qualifiers: Dysphagia type: unspecified Qualified Code(s): R13.10 - Dysphagia, unspecified Status: Acute Plan 74-year-old female with history of dysphagia diagnosed in 05/2023 . She was hospitalized at [facility] had endoscopy that showed normal esophageal pathology, mild gastritis and duodenal ulcer. She was subsequently discharged home and was eating mashed egg yolks with mayonnaise for a week before her swallow returned to normal she then tolerated regular textures without incident for the past 22 months before this episode. Patient also has diabetes, hypertension admitted for worsening dysphagia Dysphagia Patient complain of choking on her saliva during daytime only. Recently discharged from [facility] 06/30 after extensive workup including CT soft tissue neck 06/25, MRI brain showed no acute brain abnormality, few old microhemorrhages which could be hypertensive etiology. TSH normal, CPK 51. EGD by GI on 06/24: Dysphagia likely due to esophageal motility or neurological disorder, no other pathology was detected. Myasthenia gravis receptor modulating antibody pending. S/p esophageal dilatation on 06/24 without improvement in symptoms Modified barium swallow showed no evidence of aspiration. No evidence of Parkinson's disease, scleroderma, dementia, no history of Sjogren's, lupus. Will consult speech therapy for swallowing strategies. 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 Will treat with IV fluids, IV ppi and follow clinical course. Anion gap metabolic acidosis likely due to starvation, normal renal function, no hyperglycemia, no history of toxin ingestion. Will treat with IV fluids monitor electrolytes. Mild hypernatremia and hyperchloremia treat with IV fluids follow labs. Axu-dflpvmr-hifagqgti type 2 diabetes noted to have low normal blood sugar 75 POC glucose, SSI Diabetic diet Hold Jardiance given reduced p.o. intake Hypertension hold hydrochlorothiazide, telmisartan due to inability to swallow, will use as needed hydralazine for systolic BP greater than 160. Will resume home medications after speech evaluation. DVT prophylaxis-heparin subcu DNR/DNI Quality Stroke Does the patient have a stroke diagnosis?: No VTE Prior VTE?: No VTE Risk Level:: Medical - moderate - high VTE Device Contraindication: Treatment Not Indicated VTE Drug Contraindication: N/A - Med Ordered
[2025-07-04] MEDS: Lactated Ringers 1,000 ML 100 ML IVCONT (12:59)
[2025-07-04 13:37] VITALS: BP 156/70; PULSE 81; RESP 16; TEMP 36.2; O2SAT 99
[2025-07-04 13:49] LABS: Glucose, Whole Blood 66 mg/dL (60-115)
[2025-07-04 14:01] VITALS: BMI 22.3
--- NOTE | 2025-07-04 14:04 | PM.PSYCN ---
History of Present Illness Date of Service: 07/04/2025 Chief Complaint: dysphagia/anion gap metabolic acidosis Discussed with referring provider: Yes Sources of Information: patient interviewed, chart reviewed and crisis/core team assessment reviewed HPI Narrative: Mrs. Sahu is a 74 year-old woman who was recently admitted to the medical for evaluation of dyphagia. She was seen by GI, speech therapy and neurology. She had a modified barium swallowing with no evidence of dysphagia. She had an EDG with no stricture, esophageal pathology. Acetyl choline receptor blocking and binding antibodies negative, acetyl choline receptor modulating Ab pend.TSH was 1.62, CPK 51. She had diazepam IV last admission while in the ED and it was noted that she was able to eat better after. Pt was discharged on 06/30/25, pt returned this morning to the ED reporting she has not been able to eat since discharged. In the ED she was found to have mild hypernatremia (146),anion gap 23, elevation in BUN 27, Cr 1.15, creatinine clearance 36. Pt seen in her room. She reports she feels terrified when she attempts to swallow. She feels food just stays there in her mouth and does not go down. When asked how she was feeling when she did the modified barium, pt states I was terrified and very anxious. This commercial insurance underwriter remarks on fact that on modified barium exam, there was no evidence of actual dysphagia. Pt reports it may be her anxiety contributing to her fear given that there is no sign of actual dysphagia. She reports she had similar incident back in 2022 around the time of which is when she moved to [facility] after of her . She reports she was medically admitted to [facility] and no abnormal test came up. She states she went home and use some strategies to reassure herself and she reports eventually she was able to eat as usual. She denies hx of trauma- other than concussion in highschool and of her which has been hard to adapt as they were together for about 46 years. No hx of OCD, no anxiety disorder. No hx of depression. She has not been on any psychotropic medications. Past Psychiatric History: None [facility] Medical History Acute prerenal azotemia Dysphagia DVT (deep venous thrombosis) Depression HTN (hypertension) Diabetes Surgical History Hx of hysterectomy History of esophagogastroduodenoscopy (EGD) Diagnostics Vital Signs (24Hr): Vital Signs - 24 hr 07/04/25 08:32 07/04/25 09:08 07/04/25 11:17 Temperature 98.0 F Pulse Rate 103 H 93 110 H Respiratory Rate 16 16 18 Blood Pressure 141/63 H 145/72 H 166/78 H Pulse Oximetry 99 96 99 Oxygen Delivery Method Room Air Room Air Room Air 07/04/25 13:37 Temperature 97.2 F Pulse Rate 81 Respiratory Rate 16 Blood Pressure 156/70 H Pulse Oximetry 99 Oxygen Delivery Method Room Air BMI result Body Mass Index 22.3 Labs 07/04/25 09:07 07/04/25 14:23 Labs: Laboratory Results - last 48 hr 07/04/25 07/04/25 07/04/25 09:00 09:07 11:13 WBC 5.6 RBC 4.03 L Hgb 12.8 Hct 39.2 MCV 97.3 D MCH 31.8 MCHC 32.7 RDW 13.0 Plt Count 330 MPV 9.7 Immature Gran % (Auto) 0.4 Neut % (Auto) 68.9 Lymph % (Auto) 18.2 L [place] % (Auto) 9.2 Eos % (Auto) 2.9 Baso % (Auto) 0.4 Lymph # (Auto) 1.0 L [place] # (Auto) 0.5 Eos # (Auto) 0.2 Baso # (Auto) 0.0 Abs Immat Gran (auto) 0.02 Absolute Neuts (auto) 3.8 Absolute Nucleated RBC 0.000 Nucleated RBC % (auto) 0.0 Sodium 146 H Potassium 4.5 Chloride 110 H Carbon Dioxide 18 L Anion Gap 23 H BUN 27 H Creatinine 1.15 Estim Creat Clear Calc 36.5 Estimated GFR 46 POC Glucose 75 Random Glucose 75 Calcium 10.1 D Magnesium 1.9 Total Bilirubin 0.9 Direct Bilirubin 0.4 AST 37 H ALT 39 H Alkaline Phosphatase 76 Total Protein 6.8 Albumin 4.4 Urine Color Yellow Urine Appearance Clear Urine pH 5.0 Ur Specific Colbert 1.020 Urine Protein Trace Urine Glucose (UA) Negative Urine Ketones 80 Urine Blood Negative Urine Nitrite Negative Ur Leukocyte Esterase Small (1+) H Urine RBC 0-2 Urine WBC 6-10 H Ur Squamous Epith Cells 3-5 Urine Bacteria None Seen Hyaline Casts 6-10 07/04/25 13:44 WBC RBC Hgb Hct MCV MCH MCHC RDW Plt Count MPV Immature Gran % (Auto) Neut % (Auto) Lymph % (Auto) [place] % (Auto) Eos % (Auto) Baso % (Auto) Lymph # (Auto) [place] # (Auto) Eos # (Auto) Baso # (Auto) Abs Immat Gran (auto) Absolute Neuts (auto) Absolute Nucleated RBC Nucleated RBC % (auto) Sodium Potassium Chloride Carbon Dioxide Anion Gap BUN Creatinine Estim Creat Clear Calc Estimated GFR POC Glucose 66 Random Glucose Calcium Magnesium Total Bilirubin Direct Bilirubin AST ALT Alkaline Phosphatase Total Protein Albumin Urine Color Urine Appearance Urine pH Ur Specific Colbert Urine Protein Urine Glucose (UA) Urine Ketones Urine Blood Urine Nitrite Ur Leukocyte Esterase Urine RBC Urine WBC Ur Squamous Epith Cells Urine Bacteria Hyaline Casts Mental Status Exam Mental Status Exam Narrative: Appearance: wearing hospital gown, fair hygiene, in NAD Behavior: cooperative, at times interrupts this commercial insurance underwriter to clear her throat and makes gagging sounds but assures this commercial insurance underwriter she is not about to vomit. Psychomotor: no agitation or retardation noted Speech: clear, normal rate/rhythm/volume, spontaneous TP: linear TC: fear of swallowing and not able to eat Mood: anxious Affect: congruent SI: none HI: none VH/AH: none Delusions: not particular other than potential unrealistic fear of chocking. Insight/judgment: fair x 2. Memory/cog: alert, oriented x 4. not formally tested, grossly intact to conversational testing. Medications Medications Current Medications Acetaminophen (Acetaminophen 325 Mg Tablet) 650 mg PO Q6H PRN PRN Reason: Pain, Mild 1-3,fever,headache Acetaminophen (Acetaminophen Supp 650 Mg Supp.Rect) 650 mg [place] Q6H PRN PRN Reason: Fever >100.4 Calcium Carbonate (Calcium Carbonate 750 Mg Tab.Chew) 750 mg PO Q4H PRN PRN Reason: Heartburn Dextrose (Dextrose 50 % 25 Gm/50 Ml Syringe) 25 gm IVPUSH Q15M PRN; Protocol PRN Reason: per Hypoglycemia Standing Ord. Famotidine (Famotidine/Pf 20 Mg/2 Ml Vial) 20 mg IVPUSH DAILY [place] Last Admin: 07/04/25 13:01 Dose: 20 mg Glucose (Glucose Gel 15 Gm Gel..Gram.) 15 gm PO Q15M PRN; Protocol PRN Reason: per Hypoglycemia Standing Ord. Heparin Sodium (Porcine) (Heparin Sodium,Porcine 5,000 Unit/Ml Vial) 5,000 unit SUBCUT Q12H [facility] Last Admin: 07/04/25 13:10 Dose: Not Given Lactated Ringer's (Lr) 1,000 mls @ 100 mls/hr IVCONT .Q10H [facility] Last Admin: 07/04/25 12:59 Dose: 100 mls/hr Insulin Human Lispro (Insulin Lispro 100 Unit/Ml 3 Ml Vial) 0 unit SUBCUT QIDACHS [facility]; Protocol Magnesium Hydroxide (Milk Of Magnesia 30 Ml Oral.Susp) 30 ml PO DAILY PRN PRN Reason: Constipation Melatonin (Melatonin 3 Mg Tablet) 6 mg PO BEDTIME PRN PRN Reason: Insomnia Ondansetron HCl (Ondansetron Hcl 4 Mg/2 Ml Vial) 4 mg IVPUSH Q8H PRN PRN Reason: Nausea Sodium Chloride (0.9 % Sodium Chloride Flush 3 Ml Syringe) 3 ml IVFLUSH QSHIFT [facility] Last Admin: 07/04/25 13:09 Dose: Not Given Allergies Allergies Allergy/AdvReac Type Severity Reaction Status Date / Time No Known Allergies Allergy Verified 07/04/25 08:37 Assessment & Plan Assessment & Plan (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 Sahu is a 74 year-old woman who was recently admitted for evaluation of subjective dysphagia. Pt had number of exams including barium swallowing, EDG, Acetyl choline receptor blocking and binding antibodies negative, acetyl choline receptor modulating Ab pend.TSH was 1.62, CPK 51. Of note during barium swallowing there was no evidence of choking. Pt reported feeling terrified during exam and had subjective feeling of choking, however, objective evidence did not show pt having dysphagia. Pt had similar episode, which pt reports she later came up with some strategies to reassure herself and eventually was able to eat. She was discharged on 06/30/2025, she reports she has not been able to eat and was readmitted with elevated renal function and mild hypernatremia in setting of dehydration due to fear of choking if swallowing. PLAN 1. start clonazepam 0.5mg disintegrating tablets PO TID. will try to use oral medications rather than IV. 2. Psychiatry can work in collaboration with speech therapy for exposure therapy. 3. Pending collateral information from daughter to understand better pt's condition, clarify dx. Total time managing care of this patient today ____ minutes.
[2025-07-04 15:08] LABS: Anion Gap 17 (12-20); Blood Urea Nitrogen 23 mg/dL (9-16); Carbon Dioxide 19 mmol/L (22-29); Chloride 113 mmol/L (96-108); Creatinine Clr Calc Pharmacy 48.8; Estimated Glomerular Filt Rate > 60; Potassium 4.5 mmol/L (3.3-5.1); Sodium 144 mmol/L (135-145)
[2025-07-04 15:16] LABS: Calcium 9.1 mg/dL (8.4-10.2)
[2025-07-04 15:25] VITALS: BP 174/78; PULSE 80; RESP 18; TEMP 36.8; O2SAT 98
[2025-07-04 15:38] LABS: Glucose, Whole Blood 194 mg/dL (60-115)
[2025-07-04 15:38] LABS: Glucose, Whole Blood 60 mg/dL (60-115)
[2025-07-04] MEDS: Dextrose 5 % and Lactated Ring 1,000 ML 80 ML IVCONT (16:15)
[2025-07-04 16:27] LABS: Glucose, Whole Blood 139 mg/dL (60-115)
--- NOTE | 2025-07-04 17:04 | MHC.SL.SWA ---
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 See MBSS 06/28: Maladaptive lingual pumping, delayed pharyngeal response, and other effortful behaviors, such as hunching forward and tucking chin. Otherwise, pharyngeal swallow appeared functional, with complete laryngeal elevation, adequate airway protection, complete laryngeal vestibular closure, and complete pharyngeal clearance, with no residual seen ). Patient would benefit from further workup w/ GI to rule in/out any esophageal involvement and Psych consult for management of reported anxiety. Patient's workup thus far has been largely unremarkable. Recommend CONTINUE on PUREED (NDD1) solids and THIN liquids, per patient preference at this time), with pills CRUSHED in PUREE. Speech Treatment to target: -Education on swallow physiology and MBSS findings -Compensatory strategies (optimal upright 90 degree position, small bites/sips, slow pace, calm environment/minimize distractions at meal time, small portions more frequently throughout the day to encourage intake) -Daily monitoring (tx w/ SECTION LABORER during meal time at least 1x daily) -Repeat-assessment for potential advancement of diet textures when appropriate. Oral Medication Intake: Crushed with Puree Please contact the pharmacy regarding appropriate crushable or liquid drug formulations that are available whenever modified delivery is recommended. Supervision While Eating and Drinking for Safe Swallow: Intermittent Supervision Recommendation for Speech: Inpatient Speech Therapy Frequency/Duration: Daily M-F Operators School Manager Clinican/Clinical Fellow: No Supervisory Statement: I have reviewed and agree with the student/clinical fellow's documentation: N/A Speech Language Pathologist: Alexandria Arenas M.A., CCC-SECTION LABORER
--- NOTE | 2025-07-04 18:30 | PC.NURSE ---
Patient decided not to take Ativan at present ,will take it before breakfast
[2025-07-04 19:20] VITALS: BP 177/80; PULSE 83; RESP 18; TEMP 36.8; O2SAT 99
[2025-07-04 21:01] LABS: Glucose, Whole Blood 99 mg/dL (60-115)
[2025-07-04] MEDS: clonazePAM ODT 0.5 MG TAB.RAPDIS PO (21:14)
[2025-07-05] VITALS (7 sets, daily range): BP systolic 126–164; BP diastolic 58–70; PULSE 62–92; RESP 16–19; TEMP 36–36.8; O2SAT 95–100; BMI 22.3
[2025-07-05] MEDS: Dextrose 5 % and Lactated Ring 1,000 ML 80 ML IVCONT ×2 (03:23→19:16)
[2025-07-05 06:03] LABS: Anion Gap 12 (12-20); Blood Urea Nitrogen 15 mg/dL (9-16); Calcium 8.7 mg/dL (8.4-10.2); Carbon Dioxide 22 mmol/L (22-29); Chloride 114 mmol/L (96-108); Creatinine Clr Calc Pharmacy 54.5; Estimated Glomerular Filt Rate > 60; Potassium 3.7 mmol/L (3.3-5.1); Sodium 144 mmol/L (135-145)
[2025-07-05 07:13] LABS: Glucose, Whole Blood 121 mg/dL (60-115)
[2025-07-05] MEDS: clonazePAM ODT 0.5 MG TAB.RAPDIS PO ×3 (09:26→20:40)
--- NOTE | 2025-07-05 11:13 | MHC.SL.SWA ---
Speech Pathologist Impression: Unspecified dysphagia Risk of Aspiration Due to: N/A Dysphasia Diet Status: Recommend CONTINUE NDD1 (pure), THIN liquids Liquid Consistency and Strategies for Safe Swallow: Liquid Intake Recommendation: Thin Liquid Intake Strategies: Solid Food Consistency: Dietary Recommendations: Pureed (NDD1) Additional Modifications to Solid Foods: Oral Medication Intake: Crushed with Puree Please contact the pharmacy regarding appropriate crushable or liquid drug formulations that are available whenever modified delivery is recommended. Compensatory Strategies and Precautions to be Taken for Safe Swallow: Sitting Upright (90 deg) Double Swallow Small Bites and Sips Alternate Liquids/Solids Rate of Ingestion Change Supervision While Eating and Drinking for Safe Swallow: Intermittent Supervision Foods to Avoid: Swallowing Recommended Treatments: Compens. Strategy Educat. Recommendation for Speech: Inpatient Speech Therapy Comment: Patient seen with dysphagia treatment. 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 See MBSS 06/28: Maladaptive lingual pumping, delayed pharyngeal response, and other effortful behaviors, such as hunching forward and tucking chin. Otherwise, pharyngeal swallow appeared functional, with complete laryngeal elevation, adequate airway protection, complete laryngeal vestibular closure, and complete pharyngeal clearance, with no residual seen ). Patient seen in bed with breakfast tray in front of her. Patient and MOCCASIN SEWER engaging in conversation prior to PO intake to reduce anxiety. RN also closing door for patient to reduce noise/distractions. Prior to MOCCASIN SEWER arrival, patient completed about half of breakfast on her own. Patient reporting Ativan reducing anxiety/fear with swallowing and allowing her to consume some of her breakfast. While MOCCASIN SEWER was with her, patient able to take a few bites of egg and take a few sips of water. Patient with noted coughing after sips of thin liquid. Patient educated on MBSS results and encouraged to utilized positive mindset/thinking prior to swallowing to help ease fear. Patient with high motivation for trialing PO, does not want alternative nutrition. Patient also acknowledging anxiety/fear and utilizing appropriate strategies. Patient with timely mastication of ice chips; adequate cohesion and clearance for pureed solids. Recommend CONTINUE NDD1 (puree), THIN liquids (per patient preference) with intermittent supervision/encouragement of PO intake. Medications CRUSHED in puree. Patient questioning outpatient/in-home speech therapy; answering questions regarding services and deferred to welfare case worker for specific questions regarding insurance/discharge location. MOCCASIN SEWER to continue to follow. Speech Treatment to target: -Education on swallow physiology and MBSS findings -Compensatory strategies (optimal upright 90 degree position, small bites/sips, slow pace, calm environment/minimize distractions at meal time, small portions more frequently throughout the day to encourage intake) -Daily monitoring (tx w/ MOCCASIN SEWER during meal time at least 1x daily) -Repeat-assessment for potential advancement of diet textures when appropriate. Frequency/Duration: Daily M-F Date Range for Service Req: Timeline to reassess: Model Maker Scale Clinican/Clinical Fellow: No Supervisory Statement: I have reviewed and agree with the student/clinical fellow's documentation: N/A Speech Language Pathologist: Kenia Madden M.A., CCC-MOCCASIN SEWER
[2025-07-05 11:39] LABS: Glucose, Whole Blood 120 mg/dL (60-115)
--- NOTE | 2025-07-05 12:13 | MHC.CM.PN ---
Addendum entered by Natalya Alvarado 07/05/25 15:57: [facility] has accepted the patient for Speech therapy. She will discharge tomorrow. Her dtr will provide transportation home. Original Note: TYLER 07/05/25 DX Dysphagia Lives with her dtr Independent with all functional mobility. NO DME Last Visit Date 06/29/25 Returns with dysphasia DP Home with services. Referrals sent to agencies with Speech therapy. Dtr will provide transportation home.
--- NOTE | 2025-07-05 13:09 | PM.PSYCN ---
History of Present Illness Date of Service: 07/05/25 Chief Complaint: dysphagia/anion gap metabolic acidosis Requesting physician: Antonella Duff Discussed with referring provider: Yes Sources of Information: patient interviewed, chart reviewed and crisis/core team assessment reviewed HPI Narrative: Interim hx: pt worked with ST this morning. She had 50% of breakfast and 100% of lunch. Pt reports she feels reassured by ST telling her she is safe to swallow. Explore past relationship with food- which for the most part pt reports she has always enjoyed food and looks at recipes. She does report back in 2022 when she had episode of choking (which unclear if the case of not) she felt like she couldn't breath and does not feel that way now but fear of actually choking and dying. She also notes both episodes happened over the holidays after losing , which she then wonders if related to that loss or not. Pt presents as future focus and hopeful that with support from speech therapy she will eventually eat all foods. She does have heighten awareness of healthy diet. No particular aversion to certain types of food. Per ST note: Maladaptive lingual pumping, delayed pharyngeal response, and other effortful behaviors, such as hunching forward and tucking chin. Otherwise, pharyngeal swallow appeared functional, with complete laryngeal elevation, adequate airway protection, complete laryngeal vestibular closure, and complete pharyngeal clearance, with no residual seen ) Past Psychiatric History: None Review of Systems Review of Systems General no headache, no dizziness no fever chills. CVS no chest pain, no palpitation. Respiratory no cough , no respiratory distress. Gastrointestinal no nausea no vomiting, no abdominal pain. no urgency no frequency All other system reviewed and are negative. Yes all other systems are reviewed and are negative Constitutional: Reports as per HPI [facility] Medical History Acute prerenal azotemia Dysphagia DVT (deep venous thrombosis) Depression HTN (hypertension) Diabetes Surgical History Hx of hysterectomy History of esophagogastroduodenoscopy (EGD) Narrative: No prior hx of psychiatric disorder including anxiety, nor depression. No hx of psychosis or delusional thinking. No hx of suicide attempts. She has never been on psychotropic medications. Diagnostics Vital Signs (24Hr): Vital Signs - 24 hr 07/04/25 13:37 07/04/25 15:25 07/04/25 19:20 Temperature 97.2 F 98.2 F 98.2 F Pulse Rate 81 80 83 Respiratory Rate 16 18 18 Blood Pressure 156/70 H 174/78 H 177/80 H Pulse Oximetry 99 98 99 Oxygen Delivery Method Room Air Room Air Room Air 07/05/25 00:00 07/05/25 03:20 07/05/25 07:11 Temperature 98.0 F 97.1 F 98.3 F Pulse Rate 69 62 74 Respiratory Rate 17 17 16 Blood Pressure 136/63 126/58 L 142/67 H Pulse Oximetry 95 98 100 Oxygen Delivery Method Room Air Room Air Room Air 07/05/25 12:00 Temperature 98.2 F Pulse Rate 80 Respiratory Rate 16 Blood Pressure 164/69 H Pulse Oximetry 97 Oxygen Delivery Method Room Air BMI result Body Mass Index 22.3 Labs 07/04/25 09:07 07/05/25 05:34 Labs: Laboratory Results - last 48 hr 07/04/25 07/04/25 07/04/25 09:00 09:07 11:13 WBC 5.6 RBC 4.03 L Hgb 12.8 Hct 39.2 MCV 97.3 D MCH 31.8 MCHC 32.7 RDW 13.0 Plt Count 330 MPV 9.7 Immature Gran % (Auto) 0.4 Neut % (Auto) 68.9 Lymph % (Auto) 18.2 L [place] % (Auto) 9.2 Eos % (Auto) 2.9 Baso % (Auto) 0.4 Lymph # (Auto) 1.0 L [place] # (Auto) 0.5 Eos # (Auto) 0.2 Baso # (Auto) 0.0 Abs Immat Gran (auto) 0.02 Absolute Neuts (auto) 3.8 Absolute Nucleated RBC 0.000 Nucleated RBC % (auto) 0.0 Sodium 146 H Potassium 4.5 Chloride 110 H Carbon Dioxide 18 L Anion Gap 23 H BUN 27 H Creatinine 1.15 Estim Creat Clear Calc 36.5 Estimated GFR 46 POC Glucose 75 Random Glucose 75 Calcium 10.1 D Magnesium 1.9 Total Bilirubin 0.9 Direct Bilirubin 0.4 AST 37 H ALT 39 H Alkaline Phosphatase 76 Total Protein 6.8 Albumin 4.4 Urine Color Yellow Urine Appearance Clear Urine pH 5.0 Ur Specific [place] 1.020 Urine Protein Trace Urine Glucose (UA) Negative Urine Ketones 80 Urine Blood Negative Urine Nitrite Negative Ur Leukocyte Esterase Small (1+) H Urine RBC 0-2 Urine WBC 6-10 H Ur Squamous Epith Cells 3-5 Urine Bacteria None Seen Hyaline Casts 6-10 07/04/25 07/04/25 07/04/25 13:44 14:23 15:11 WBC RBC Hgb Hct MCV MCH MCHC RDW Plt Count MPV Immature Gran % (Auto) Neut % (Auto) Lymph % (Auto) [place] % (Auto) Eos % (Auto) Baso % (Auto) Lymph # (Auto) [place] # (Auto) Eos # (Auto) Baso # (Auto) Abs Immat Gran (auto) Absolute Neuts (auto) Absolute Nucleated RBC Nucleated RBC % (auto) Sodium 144 Potassium 4.5 Chloride 113 H Carbon Dioxide 19 L Anion Gap 17 BUN 23 H Creatinine 0.86 Estim Creat Clear Calc 48.8 Estimated GFR > 60 POC Glucose 66 60 Random Glucose 69 Calcium 9.1 D Magnesium Total Bilirubin Direct Bilirubin AST ALT Alkaline Phosphatase Total Protein Albumin Urine Color Urine Appearance Urine pH Ur Specific [place] Urine Protein Urine Glucose (UA) Urine Ketones Urine Blood Urine Nitrite Ur Leukocyte Esterase Urine RBC Urine WBC Ur Squamous Epith Cells Urine Bacteria Hyaline Casts 07/04/25 07/04/25 07/04/25 15:33 16:22 20:21 WBC RBC Hgb Hct MCV MCH MCHC RDW Plt Count MPV Immature Gran % (Auto) Neut % (Auto) Lymph % (Auto) [place] % (Auto) Eos % (Auto) Baso % (Auto) Lymph # (Auto) [place] # (Auto) Eos # (Auto) Baso # (Auto) Abs Immat Gran (auto) Absolute Neuts (auto) Absolute Nucleated RBC Nucleated RBC % (auto) Sodium Potassium Chloride Carbon Dioxide Anion Gap BUN Creatinine Estim Creat Clear Calc Estimated GFR POC Glucose 194 H 139 H 99 Random Glucose Calcium Magnesium Total Bilirubin Direct Bilirubin AST ALT Alkaline Phosphatase Total Protein Albumin Urine Color Urine Appearance Urine pH Ur Specific [place] Urine Protein Urine Glucose (UA) Urine Ketones Urine Blood Urine Nitrite Ur Leukocyte Esterase Urine RBC Urine WBC Ur Squamous Epith Cells Urine Bacteria Hyaline Casts 07/05/25 07/05/25 07/05/25 05:34 07:09 11:36 WBC RBC Hgb Hct MCV MCH MCHC RDW Plt Count MPV Immature Gran % (Auto) Neut % (Auto) Lymph % (Auto) [place] % (Auto) Eos % (Auto) Baso % (Auto) Lymph # (Auto) [place] # (Auto) Eos # (Auto) Baso # (Auto) Abs Immat Gran (auto) Absolute Neuts (auto) Absolute Nucleated RBC Nucleated RBC % (auto) Sodium 144 Potassium 3.7 Chloride 114 H Carbon Dioxide 22 Anion Gap 12 BUN 15 Creatinine 0.77 Estim Creat Clear Calc 54.5 Estimated GFR > 60 POC Glucose 121 H 120 H Random Glucose 114 Calcium 8.7 Magnesium Total Bilirubin Direct Bilirubin AST ALT Alkaline Phosphatase Total Protein Albumin Urine Color Urine Appearance Urine pH Ur Specific [place] Urine Protein Urine Glucose (UA) Urine Ketones Urine Blood Urine Nitrite Ur Leukocyte Esterase Urine RBC Urine WBC Ur Squamous Epith Cells Urine Bacteria Hyaline Casts Mental Status Exam Mental Status Exam Narrative: Appearance: wearing hospital gown, fair hygiene, in NAD Behavior: cooperative, at times interrupts this speech writer to clear her throat and makes gagging sounds but assures this speech writer she is not about to vomit. Psychomotor: no agitation or retardation noted Speech: clear, normal rate/rhythm/volume, spontaneous TP: linear TC: feeling more hopeful and less fear about eating with reassurance of ST. Mood: better Affect: congruent SI: none HI: none VH/AH: none Delusions: not particular other than potential unrealistic fear of chocking. Insight/judgment: fair x 2. Memory/cog: alert, oriented x 4. not formally tested, grossly intact to conversational testing. Medications Medications Current Medications Acetaminophen (Acetaminophen 325 Mg Tablet) 650 mg PO Q6H PRN PRN Reason: Pain, Mild 1-3,fever,headache Acetaminophen (Acetaminophen Supp 650 Mg Supp.Rect) 650 mg [place] Q6H PRN PRN Reason: Fever >100.4 Calcium Carbonate (Calcium Carbonate 750 Mg Tab.Chew) 750 mg PO Q4H PRN PRN Reason: Heartburn Clonazepam (Clonazepam Odt 0.5 Mg Tab.Rapdis) 0.5 mg PO TID [facility] Last Admin: 07/05/25 09:26 Dose: 0.5 mg Dextrose (Dextrose 50 % 25 Gm/50 Ml Syringe) 25 gm IVPUSH Q15M PRN; Protocol PRN Reason: per Hypoglycemia Standing Ord. Last Admin: 07/04/25 15:15 Dose: 25 gm Famotidine (Famotidine/Pf 20 Mg/2 Ml Vial) 20 mg IVPUSH DAILY [facility] Last Admin: 07/05/25 09:26 Dose: 20 mg Glucose (Glucose Gel 15 Gm Gel..Gram.) 15 gm PO Q15M PRN; Protocol PRN Reason: per Hypoglycemia Standing Ord. Heparin Sodium (Porcine) (Heparin Sodium,Porcine 5,000 Unit/Ml Vial) 5,000 unit SUBCUT Q12H [facility] Last Admin: 07/05/25 12:00 Dose: 5,000 unit Dextrose/Lactated Ringer's (D5lr) 1,000 mls @ 80 mls/hr IVCONT .[id number] [facility] Last Infusion: 07/05/25 11:54 Dose: 0 mls/hr Insulin Human Lispro (Insulin Lispro 100 Unit/Ml 3 Ml Vial) 0 unit SUBCUT QIDACHS [facility]; Protocol Last Admin: 07/05/25 11:54 Dose: Not Given Magnesium Hydroxide (Milk Of Magnesia 30 Ml Oral.Susp) 30 ml PO DAILY PRN PRN Reason: Constipation Melatonin (Melatonin 3 Mg Tablet) 6 mg PO BEDTIME PRN PRN Reason: Insomnia Ondansetron HCl (Ondansetron Hcl 4 Mg/2 Ml Vial) 4 mg IVPUSH Q8H PRN PRN Reason: Nausea Sodium Chloride (0.9 % Sodium Chloride Flush 3 Ml Syringe) 3 ml IVFLUSH QSHIFT [facility] Last Admin: 07/05/25 07:38 Dose: Not Given Allergies Allergies Allergy/AdvReac Type Severity Reaction Status Date / Time No Known Allergies Allergy Verified 07/04/25 08:37 Assessment & Plan Assessment & Plan (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 Sahu is a 74 year-old woman who was recently admitted for evaluation of subjective dysphagia. Pt had number of exams including barium swallowing, EDG, Acetyl choline receptor blocking and binding antibodies negative, acetyl choline receptor modulating Ab pend.TSH was 1.62, CPK 51. Of note during barium swallowing there was no evidence of choking. Pt reported feeling terrified during exam and had subjective feeling of choking, however, objective evidence did not show pt having dysphagia. Pt had similar episode, which pt reports she later came up with some strategies to reassure herself and eventually was able to eat. She was discharged on 06/30/2025, she reports she has not been able to eat and was readmitted with elevated renal function and mild hypernatremia in setting of dehydration due to fear of choking if swallowing. PLAN 07/05/25- pt able to eat more today for breakfast and lunch. tolerating clonazepam disintegrating tablets. PLEASE AVOID as much as possible IV or IM benzodiazepines to encourage oral intake and hope she can continue taking it at home. continue Clonazepam 0.5mg po TID. No over sedation noted. Total time managing care of this patient today ____ minutes.
--- NOTE | 2025-07-05 14:14 | P.PNIM_ITS ---
Subjective Subjective Date of Service: 07/05/25 Review of Systems Follow up dysphagia no chest pain or shortness of breath denied vomiting Physical Exam 2 Exam: Exam: Appearing in no acute distress lung sounds are clear to auscultation heart regular rate rhythm, clear S1, S2 positive bowel sounds, abdomen is soft, nontender neuro patient is alert x3, no focal deficits Vital Signs: Vital Signs: Last Vital Signs Temp 98.2 F 07/05/25 12:00 Pulse 80 07/05/25 12:00 Resp 16 07/05/25 12:00 BP 164/69 H 07/05/25 12:00 Pulse Ox 97 07/05/25 12:00 O2 Del Method Room Air 07/05/25 12:00 BMI result Body Mass Index 22.3 Objective Data Active Medications Acetaminophen (Acetaminophen 325 Mg Tablet) 650 mg PO Q6H PRN PRN Reason: Pain, Mild 1-3,fever,headache Acetaminophen (Acetaminophen Supp 650 Mg Supp.Rect) 650 mg [place] Q6H PRN PRN Reason: Fever >100.4 Calcium Carbonate (Calcium Carbonate 750 Mg Tab.Chew) 750 mg PO Q4H PRN PRN Reason: Heartburn Clonazepam (Clonazepam Odt 0.5 Mg Tab.Rapdis) 0.5 mg PO TID [facility] Last Admin: 07/05/25 09:26 Dose: 0.5 mg Documented By: GHULAM Dextrose (Dextrose 50 % 25 Gm/50 Ml Syringe) 25 gm IVPUSH Q15M PRN; Protocol PRN Reason: per Hypoglycemia Standing Ord. Last Admin: 07/04/25 15:15 Dose: 25 gm Documented By: MERCEDES Famotidine (Famotidine/Pf 20 Mg/2 Ml Vial) 20 mg IVPUSH DAILY [facility] Last Admin: 07/05/25 09:26 Dose: 20 mg Documented By: GHULAM Glucose (Glucose Gel 15 Gm Gel..Gram.) 15 gm PO Q15M PRN; Protocol PRN Reason: per Hypoglycemia Standing Ord. Heparin Sodium (Porcine) (Heparin Sodium,Porcine 5,000 Unit/Ml Vial) 5,000 unit SUBCUT Q12H [facility] Last Admin: 07/05/25 12:00 Dose: 5,000 unit Documented By: GHULAM Dextrose/Lactated Ringer's (D5lr) 1,000 mls @ 80 mls/hr IVCONT .[id number] [facility] Last Infusion: 07/05/25 13:47 Dose: 80 mls/hr Documented By: GHULAM Insulin Human Lispro (Insulin Lispro 100 Unit/Ml 3 Ml Vial) 0 unit SUBCUT QIDACHS [facility]; Protocol Last Admin: 07/05/25 11:54 Dose: Not Given Documented By: GHULAM Non-Admin Reason: No Insulin Coverage Magnesium Hydroxide (Milk Of Magnesia 30 Ml Oral.Susp) 30 ml PO DAILY PRN PRN Reason: Constipation Melatonin (Melatonin 3 Mg Tablet) 6 mg PO BEDTIME PRN PRN Reason: Insomnia Ondansetron HCl (Ondansetron Hcl 4 Mg/2 Ml Vial) 4 mg IVPUSH Q8H PRN PRN Reason: Nausea Sodium Chloride (0.9 % Sodium Chloride Flush 3 Ml Syringe) 3 ml IVFLUSH QSHIFT [facility] Last Admin: 07/05/25 07:38 Dose: Not Given Documented By: GHULAM Non-Admin Reason: IV Running Labs 07/04/25 09:07 07/05/25 05:34 Labs: Laboratory Results - last 24 hr 07/04/25 07/04/25 07/04/25 14:23 15:11 15:33 Anion Gap 17 Estim Creat Clear Calc 48.8 Estimated GFR > 60 POC Glucose 60 194 H Random Glucose 69 Calcium 9.1 D 07/04/25 07/04/25 07/05/25 16:22 20:21 05:34 Anion Gap 12 Estim Creat Clear Calc 54.5 Estimated GFR > 60 POC Glucose 139 H 99 Random Glucose 114 Calcium 8.7 07/05/25 07/05/25 07:09 11:36 Anion Gap Estim Creat Clear Calc Estimated GFR POC Glucose 121 H 120 H Random Glucose Calcium Microbiology Microbiology Results: Microbiology 07/04/25 Unknown Urine Culture - Final Urine clean catch - Clean Catch Midstream Assessment and Plan (1) Dysphagia: Status: Acute Plan 74-year-old female with history of dysphagia diagnosed in 05/2023 . She was hospitalized at [facility] had endoscopy that showed normal esophageal pathology, mild gastritis and duodenal ulcer. She was subsequently discharged home and was eating mashed egg yolks with mayonnaise for a week before her swallow returned to normal she then tolerated regular textures without incident for the past 22 months before this episode. Patient also has diabetes, hypertension admitted for worsening dysphagia Dysphagia Patient complain of choking on her saliva during daytime only. Recently discharged from [facility] 06/30 after extensive workup including, CT soft tissue neck 06/25, MRI brain showed no acute brain abnormality, few old microhemorrhages which could be hypertensive etiology. TSH normal, CPK 51. EGD by GI on 06/24 Dysphagia likely due to esophageal motility or neurological disorder, no other pathology was detected. Myasthenia gravis receptor modulating antibody pending. S/p esophageal dilatation on 06/24 without improvement in symptoms Modified barium swallow showed no evidence of aspiration. No evidence of Parkinson's disease, scleroderma, dementia, no history of Sjogren's, lupus. speech therapy for swallowing strategies. 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 Anion gap metabolic acidosis likely due to starvation normal renal function no hyperglycemia no history of toxin ingestion. Will treat with IV fluids monitor electrolytes. Mild hypernatremia and hyperchloremia. Resolved treated with IV fluids Gxt-vwuerlg-glwlnonll type 2 diabetes noted to have low normal blood sugar 75 POC glucose, SSI Diabetic diet Hold Jardiance given reduced p.o. intake Hypertension hold hydrochlorothiazide, telmisartan due to inability to swallow will use as needed hydralazine for systolic BP greater than 180 Will resume home medications after speech evaluation. DVT prophylaxis-heparin subcu DNR/DNI Quality Stroke Does the patient have a stroke diagnosis?: No VTE Prior VTE?: No VTE Risk Level:: Medical - moderate - high VTE Device Contraindication: Treatment Not Indicated VTE Drug Contraindication: N/A - Med Ordered
--- NOTE | 2025-07-05 16:01 | P.DS_ITS ---
DS: Providers Provider Date of admission: 07/04/25 11:47 Date of discharge: 07/05/25 Primary care physician: Jef Noland NP Consults: 07/04/25 11:51 Consult to Psychiatry Routine Consulting Provider: [facility] Reason for consultation: persistent dysphagia seen by Eamon Alvarez Has provider been notified: No DS: Diagnosis Discharge Diagnosis (1) Phobia of choking: Status: Acute DS: Summary Hospital Course Hospital Course: History and physical as per admitting provider. 74-year-old female recently admitted to [facility] from 06/23 through with worsening swallow difficulties. During the hospitalization patient underwent extensive testing she was seen by Dr. Araujo had EGD done on 06/24 which showed mildly tortuous esophagus without stricture or ring and no food bolus seen in the esophagus or stomach. A balloon dilatation was performed in the proximal and distal esophagus. Soft tissue neck CT on 06/25 showed no mass, pathologic lymphadenopathy, or abdominal fluid collection. 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 There were also likely small lacunar infarction, involving the left anterior and posterior limbs of the internal capsule. Patient was seen by Neurology they recommended MRI brain that showed no abnormality. Acetyl choline receptor blocking and binding antibodies negative, acetyl choline receptor modulating Ab pend.TSH was 1.62, CPK 51. Today patient presented to [place] due to inability to tolerate diet, unable to take home medications, has been choking on saliva only during daytime, has been sleeping well all night, denies epigastric pain no nausea, no vomiting, daughter has been checking blood sugars and noted to have blood sugars in mid 60s. Due to concern for decreased by mouth intake low blood sugars patient came to ER for re-evaluation. In ED noted to have mild hypernatremia sodium 116, chloride 110, anion gap 23. UA no bacteria. Patient denies URI symptoms. Received 1 L of IV fluid in the ED. Dysphagia Patient complain of choking on her saliva during daytime only. Recently discharged from [facility] 06/30 after extensive workup including, CT soft tissue neck 06/25, MRI brain showed no acute brain abnormality, few old microhemorrhages which could be hypertensive etiology. TSH normal, CPK 51. EGD by GI on 06/24 Dysphagia likely due to esophageal motility or neurological disorder, no other pathology was detected. Myasthenia gravis receptor modulating antibody pending. S/p esophageal dilatation on 06/24 without improvement in symptoms Modified barium swallow showed no evidence of aspiration. No evidence of Parkinson's disease, scleroderma, dementia, no history of Sjogren's, lupus. speech therapy for swallowing strategies. 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 treated with IV fluids Mild hypernatremia and hyperchloremia. Resolved treated with IV fluids Wxf-ogzybnz-fndzqnmdw type 2 diabetes noted to have low normal blood sugar 75 treated with SSI Diabetic diet continue home medications Hypertension hold hydrochlorothiazide, telmisartan due to inability to swallow during hospital stay and continue at home if able used hydralazine for systolic BP greater than 180 Physical Exam Exam: Exam: Appearing in no acute distress head is normocephalic atraumatic eyes pupils are PERRLA sclera is anicteric mouth throat mucous membranes are intact and moist neck is supple no lymphadenopathy, no JVD noted lung sounds are clear to auscultation heart regular rate rhythm, clear S1, S2 positive bowel sounds, abdomen is soft, nontender neuro patient is alert x3, no focal deficits Vital Signs: Vital Signs: Last Vital Signs Temp 97.6 F 07/05/25 15:07 Pulse 74 07/05/25 15:07 Resp 19 07/05/25 15:07 BP 137/64 07/05/25 15:07 Pulse Ox 99 07/05/25 15:07 O2 Del Method Room Air 07/05/25 15:07 BMI result Body Mass Index 22.3 DS: Data Data Completed and Pending Labs on day of discharge: Laboratory Results - last 24 hr 07/04/25 07/04/25 07/05/25 16:22 20:21 05:34 Sodium 144 Potassium 3.7 Chloride 114 H Carbon Dioxide 22 Anion Gap 12 BUN 15 Creatinine 0.77 Estim Creat Clear Calc 54.5 Estimated GFR > 60 POC Glucose 139 H 99 Random Glucose 114 Calcium 8.7 07/05/25 07/05/25 07:09 11:36 Sodium Potassium Chloride Carbon Dioxide Anion Gap BUN Creatinine Estim Creat Clear Calc Estimated GFR POC Glucose 121 H 120 H Random Glucose Calcium Discharge Plan Discharge Patient Disposition: Home, Self-Care Discharge Diagnosis: Continued dysphagia Referrals: Jef Noland NP [Primary Care Provider, Internal Medicine] - 1 Week Discharge Medications: Continued metoclopramide HCl 5 mg tablet 5 mg PO TID telmisartan 80 mg tablet 80 mg PO DAILY hydrochlorothiazide 12.5 mg tablet 12.5 mg PO DAILY Jardiance 10 mg tablet 10 mg PO DAILY baclofen 5 mg tablet 5 mg PO TID cholecalciferol (vitamin D3) [Vitamin D3] 25 mcg (1,000 unit) Tablet 25 mcg PO DAILY (DME) FreeStyle Lite Strips Strip Qty: 100 0RF Rx Instructions: Test four times a day or as directed. (DME) blood-glucose meter [FreeStyle Lite Meter] Kit Qty: 1 0RF Rx Instructions: As Directed (DME) lancets [FreeStyle Lancets] 28 gauge misc Qty: 100 0RF Rx Instructions: Test four times a day or as directed. Discontinued lorazepam [Ativan] 0.5 mg tablet 0.5 mg PO Q8H PRN (Reason: anxiety) Qty: 10 0RF Diet: Advance to usual diet Activity on Discharge: As tolerated Stand Alone Forms: Patient Portal Discharge page Print Language: Uzbek Care Plan Goals: Follow up with Psychiatry outpatient Health Concerns: Continued dysphagia Plan of Treatment: Follow up with primary care provider as needed Take all medications as prescribed Assessment: See discharge summary
[2025-07-05 16:13] LABS: Glucose, Whole Blood 130 mg/dL (60-115)
[2025-07-05 20:28] LABS: Glucose, Whole Blood 146 mg/dL (60-115)
[2025-07-06 03:50] VITALS: BP 152/68; PULSE 69; RESP 16; TEMP 36.1; O2SAT 94
[2025-07-06 07:40] VITALS: BP 151/75; PULSE 73; RESP 16; TEMP 36.8; O2SAT 96
[2025-07-06 07:46] LABS: Glucose, Whole Blood 119 mg/dL (60-115)
[2025-07-06] MEDS: clonazePAM ODT 0.5 MG TAB.RAPDIS PO (07:49)
[2025-07-06] MEDS: 0.9 % Sodium Chloride Flush 3 ML SYRINGE IVFLUSH (07:53)
--- NOTE | 2025-07-06 08:34 | P.DS_ITS ---
DS: Providers Provider Date of admission: 07/04/25 11:47 Date of discharge: 07/06/25 Primary care physician: Jef Noland NP Consults: 07/04/25 11:51 Consult to Psychiatry Routine Consulting Provider: [facility] [place] Psych Covering Reason for consultation: persistent dysphagia seen by Eamon Alvarez Has provider been notified: No DS: Diagnosis Discharge Diagnosis (1) Dysphagia: Status: Acute DS: Summary Hospital Course Hospital Course: History and physical as per admitting provider. 74-year-old female recently admitted to [facility] from 06/23 through with worsening swallow difficulties. During the hospitalization patient underwent extensive testing she was seen by Dr. Araujo had EGD done on 06/24 which showed mildly tortuous esophagus without stricture or ring and no food bolus seen in the esophagus or stomach. A balloon dilatation was performed in the proximal and distal esophagus. Soft tissue neck CT on 06/25 showed no mass, pathologic lymphadenopathy, or abdominal fluid collection. 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 There were also likely small lacunar infarction, involving the left anterior and posterior limbs of the internal capsule. Patient was seen by Neurology they recommended MRI brain that showed no abnormality. Acetyl choline receptor blocking and binding antibodies negative, acetyl choline receptor modulating Ab pend.TSH was 1.62, CPK 51. Today patient presented to [facility] due to inability to tolerate diet, unable to take home medications, has been choking on saliva only during daytime, has been sleeping well all night, denies epigastric pain no nausea, no vomiting, daughter has been checking blood sugars and noted to have blood sugars in mid 60s. Due to concern for decreased by mouth intake low blood sugars patient came to ER for re-evaluation. In ED noted to have mild hypernatremia sodium 116, chloride 110, anion gap 23. UA no bacteria. Patient denies URI symptoms. Received 1 L of IV fluid in the ED. Dysphagia Patient complain of choking on her saliva during daytime only. Recently discharged from [facility] 06/30 after extensive workup including, CT soft tissue neck 06/25, MRI brain showed no acute brain abnormality, few old microhemorrhages which could be hypertensive etiology. TSH normal, CPK 51. EGD by GI on 06/24 Dysphagia likely due to esophageal motility or neurological disorder, no other pathology was detected. Myasthenia gravis receptor modulating antibody pending. S/p esophageal dilatation on 06/24 without improvement in symptoms Modified barium swallow showed no evidence of aspiration. No evidence of Parkinson's disease, scleroderma, dementia, no history of Sjogren's, lupus. speech therapy for swallowing strategies. 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 treated with IV fluids Mild hypernatremia and hyperchloremia. Resolved treated with IV fluids Two-mnaxwaa-opkvndpft type 2 diabetes noted to have low normal blood sugar 75 treated with SSI Diabetic diet continue home medications Hypertension hold hydrochlorothiazide, telmisartan due to inability to swallow during hospital stay and continue at home if able used hydralazine for systolic BP greater than 180 Time Attestation Discharge Coordination Time (in mins): 35 Quality: Safe Use of Opioids Does Pt have an Active Cancer Diagnosis on the Problem List?: No Quality: Stroke Does the patient have a stroke diagnosis?: No Physical Exam Vital Signs: Vital Signs: Last Vital Signs Temp 98.2 F 07/06/25 07:40 Pulse 73 07/06/25 07:40 Resp 16 07/06/25 07:40 BP 151/75 H 07/06/25 07:40 Pulse Ox 96 07/06/25 07:40 O2 Del Method Room Air 07/06/25 07:40 BMI result Body Mass Index 22.3 Const: Other: Awake alert no acute distress Resp: Other: Clear to auscultation bilaterally no rales rhonchi or wheezes Cardio: Other: No S4; positive S1-S2; no S3 murmurs rubs or gallops GI: Other: Soft nontender nondistended normoactive bowel sounds Extrem: Other: No edema bilaterally DS: Data Data Completed and Pending Labs on day of discharge: Laboratory Results - last 24 hr 07/05/25 07/05/25 07/05/25 11:36 16:09 20:23 POC Glucose 120 H 130 H 146 H 07/06/25 07:38 POC Glucose 119 H Discharge Plan Discharge Anticipated Discharge Date/Time: 07/06/25 08:34 Patient Disposition: Home, Self-Care Discharge Diagnosis: Continued dysphagia Referrals: Jef Noland NP [Primary Care Provider, Internal Medicine] - 1 Week Discharge Medications: Continued metoclopramide HCl 5 mg tablet 5 mg PO TID telmisartan 80 mg tablet 80 mg PO DAILY hydrochlorothiazide 12.5 mg tablet 12.5 mg PO DAILY Jardiance 10 mg tablet 10 mg PO DAILY baclofen 5 mg tablet 5 mg PO TID cholecalciferol (vitamin D3) [Vitamin D3] 25 mcg (1,000 unit) Tablet 25 mcg PO DAILY (DME) FreeStyle Lite Strips Strip Qty: 100 0RF Rx Instructions: Test four times a day or as directed. (DME) blood-glucose meter [FreeStyle Lite Meter] Kit Qty: 1 0RF Rx Instructions: As Directed (DME) lancets [FreeStyle Lancets] 28 gauge misc Qty: 100 0RF Rx Instructions: Test four times a day or as directed. Discontinued lorazepam [Ativan] 0.5 mg tablet 0.5 mg PO Q8H PRN (Reason: anxiety) Qty: 10 0RF Discharge Orders: Discharge Order (Routine); Ordered 07/06/25 Ordered By: Jared Espaañ Diet: Advance to usual diet Activity on Discharge: As tolerated Stand Alone Forms: Patient Portal Discharge page Print Language: Malay Care Plan Goals: Follow up with Psychiatry outpatient Health Concerns: Continued dysphagia Plan of Treatment: Follow up with primary care provider as needed Take all medications as prescribed Assessment: See discharge summary
[2025-07-06 09:23] VITALS: BP 133/75; PULSE 96; RESP 18; TEMP 37.1; O2SAT 98
--- NOTE | 2025-07-06 12:10 | MHC.CM.PN ---
DC to home with [facility]. Patients dtr provided transport home.
--- NOTE | 2025-07-11 07:38 | P.F2F_ITS ---
Service Date Service Date: 07/11/25 Encounter Date of encounter: 07/06/25 Encounter: Acute hospitalization Reasons for Services Signs and symptoms assessed: Assess swallowing and oral intake. Help with med management Reason for care home: medication management, medication treatment, teach disease management and other (Monitor for signs and symptoms of dysphagia) Homebound: Leaving the home is medically contraindicated at this time without the asist of a device and/or another person due th the listed conditions above and below. Reason homebound: weakness related to hospital stay and unable to drive Certification: Based on the above findings, I certify that this patient is confined to the home and needs intermittent care home care, physical therapy and/or speech therapy, or continues to need occupational therapy. The patient is under my care, and I have initiated the establishment of the plan of care. The patient will be followed by a physician who will periodically review the plan of care. Time Spent With Patient Time: Total time managing care of this patient today ____ minutes.
== END 2025-07-06 09:30 | disposition home health service (06) ==
LOC: HO.ED 10:41 → HO.EDOVER 11:56 → HO.S3 12:46
PROVIDERS: Nurse Practitioner Acute Care; Physician Assistant; Admitting Provider Hospitalist; Emergency Provider Emergency Medicine; PCP Nurse Practitioner Family; Visit Provider Hospitalist
DX: R13.10 Dysphagia, unspecified (principal); F40.298 Other specified phobia; E87.0 Hyperosmolality and hypernatremia; E87.20 Acidosis, unspecified; E11.649 Type 2 diabetes mellitus with hypoglycemia without coma; I10 Essential (primary) hypertension; Z79.85 Long-term (current) use of injectable non-insulin antidiabetic drugs; Z79.899 Other long term (current) drug therapy; Z86.718 Personal history of other venous thrombosis and embolism
CPT/HCPCS: 36415; 80048; 80076; 81001; 82947; 83735; 85025; 87086; 92526; 92610; 96361; 96365; 96366; 96372; 96375; 96376; 99221; 99285; J1308; J1644; J7120

== ENCOUNTER → 2025-07-04 11:47 | Outpatient (BNV) | payer MEDICARE, SELFPAY | PROVIDERS: Admitting Provider Hospitalist; Emergency Provider Emergency Medicine; PCP Nurse Practitioner Family; Visit Provider Nurse Practitioner Acute Care | DX: R13.10 Dysphagia, unspecified (principal) | CPT/HCPCS: 99222; 99232; 99239; G0180 ==

== ENCOUNTER → 2025-07-04 11:47 | Outpatient (BNV) | payer MEDICARE, SELFPAY | PROVIDERS: Admitting Provider Hospitalist; Emergency Provider Emergency Medicine; PCP Nurse Practitioner Family; Visit Provider Social Worker | DX: F40.298 Other specified phobia (principal) | CPT/HCPCS: 99233 ==